=== PATIENT | female | born 1940 | race Caucasian/White ===

== ENCOUNTER 2016-09-29 20:04 | Emergency (ER) | payer MEDICARE ==
[2016-09-29 21:41] LABS: Hematocrit 38 % (35-47); Hemoglobin 12.3 g/dl (12.0-16.0); Mean Corpuscular HGB Conc 33 g/dl (31-36); Mean Corpuscular Hemoglobin 27 pg (27-31); Mean Corpuscular Volume 83 fL (80-97); Mean Platelet Volume 9 um3 (7.4-10.4); Red Blood Count 4.51 10^6/ul (4.0-5.4); Red Cell Distribution Width 13 % (10.5-15); White Blood Count 9.7 10^3/ul (3.5-10.8)
[2016-09-29 21:55] LABS: Albumin 3.7 g/dL (3.2-5.2); BUN/Creatinine Ratio 26.3 (8-20); Calcium 9.5 mg/dL (8.6-10.3); EGFR African American 73.8 (>60); EGFR Non-African American 57.3 (>60); Globulin 2.7 g/dL (2-4); Magnesium 1.7 mg/dL (1.9-2.7); Total Bilirubin 1.3 mg/dL (0.2-1.0); Total Protein 6.4 g/dL (6.4-8.9)
--- NOTE | 2016-09-29 22:01 | ED ---
Juan Angulo Benjamin, scribed for José Miguel Newberry MD on 09/29/16 at 2118 . Abdominal Pain/Female - HPI Summary HPI Summary: 76yo female c/o abdominal pain from abdominal distension and acid reflux since . Pt had been having abdominal distension for few weeks now and was dxed with an 30cm abdominal mass that is spreading to the rest of her abdomen from an abdominal CT. She has appointment with Dr. Cameron in [place] but wants to go to [facility] in [place]. Pt also reports temp of 100F and states that she feels ill. Pt also reports difficulty sitting up due to her abdominal distension and pain. - History of Current Complaint Chief Complaint: EDAbdPain Stated Complaint: FEVER 100.1 Time Seen by Provider: 09/29/16 21:07 Hx Obtained From: Patient, Family/Neuropsychology Director - Onset/Duration: Gradual Onset, Lasting Days, Still Present Timing: Days Severity Initially: Moderate Severity Currently: Moderate Pain Intensity: 5 Pain Scale Used: 0-10 Numeric Location: Diffuse Radiates: No Character: Other: - distended Aggravating Factor(s): Nothing Alleviating Factor(s): Nothing Associated Signs and Symptoms: Positive: Fever - 100F, Other: - acid reflux Allergies/Adverse Reactions: Allergies Allergy/AdvReac Type Severity Reaction Status Date / Time Sulfa Antibiotics AdvReac See Comment Verified 11/06/15 11:46 PMH/Surg Hx/FS Hx/Imm Hx Endocrine/Hematology History: Denies: Hx Diabetes Cardiovascular History: Denies: Hx Hypertension GI History: Reports: Other GI Disorders - abdominal mass History: Denies: Hx Renal Disease - Surgical History Surgery Procedure, Year, and Place: appy as "a teenager" Infectious Disease History: No Infectious Disease History: Denies: History Other Infectious Disease, Traveled Outside the [place] in Last 30 Days - Family History Known Family History: Negative: Cardiac Disease - denies family hx of, Diabetes - Social History Occupation: Employed Full-time Lives: With Family Alcohol Use: None Hx Substance Use: No Substance Use Type: Reports: None Smoking Status (MU): Never Smoked Tobacco Review of Systems Positive: Fever - 100F Eyes: Negative ENT: Negative Cardiovascular: Negative Positive: Other Respiratory: Negative Positive: Abdominal Pain, Other - acid reflux. Negative: Vomiting, Diarrhea Genitourinary: Negative Musculoskeletal: Negative Skin: Negative Neurological: Negative Psychological: Normal All Other Systems Reviewed And Are Negative: Yes Physical Exam Triage Information Reviewed: Yes Vital Signs On Initial Exam: Initial Vitals Temp Pulse Resp BP Pulse Ox 99.5 F 130 18 134/80 94 09/29/16 20:09 09/29/16 20:09 09/29/16 20:09 09/29/16 20:09 09/29/16 20:09 Vital Signs Reviewed: Yes Appearance: Positive: Ill-Appearing - chronically ill appearing, Pain Distress - mild discomfort Skin: Positive: Warm Head/Face: Positive: Normal Head/Face Inspection Eyes: Positive: JESSICA ENT: Positive: Hearing grossly normal Neck: Positive: Supple Respiratory/Lung Sounds: Positive: Decreased Breath Sounds - left base Cardiovascular: Positive: Tachycardia Abdomen Description: Positive: Soft, Distended - ascites present Bowel Sounds: Positive: Present Musculoskeletal: Positive: Strength/ROM Intact Neurological: Positive: Alert, Oriented to Person Place, Time, Normal Gait Psychiatric: Positive: Anxious - Courtney Coma Scale Coma Scale Total: 15 Diagnostics - Vital Signs Vital Signs Temp Pulse Resp BP Pulse Ox 09/29/16 20:44 99.8 F 126 18 140/76 95 09/29/16 20:09 99.5 F 130 18 134/80 94 - Laboratory Lab Results: Lab Results 09/29/16 09/29/16 09/29/16 Range/Units 21:33 21:33 21:33 WBC 9.7 (3.5-10.8) 10^3/ul RBC 4.51 (4.0-5.4) 10^6/ul Hgb 12.3 (12.0-16.0) g/dl Hct 38 (35-47) % MCV 83 (80-97) fL MCH 27 (27-31) pg MCHC 33 (31-36) g/dl RDW 13 (10.5-15) % Plt Count 182 (150-450) 10^3/ul MPV 9 (7.4-10.4) um3 Neut % (Auto) 81.7 (38-83) % Lymph % (Auto) 4.3 L (25-47) % [place] % (Auto) 13.5 H (1-9) % Eos % (Auto) 0.2 (0-6) % Baso % (Auto) 0.3 (0-2) % Absolute Neuts (auto) 7.9 H (1.5-7.7) 10^3/ul Absolute Lymphs (auto) 0.4 L (1.0-4.8) 10^3/ul Absolute Monos (auto) 1.3 H (0-0.8) 10^3/ul Absolute Eos (auto) 0 (0-0.6) 10^3/ul Absolute Basos (auto) 0 (0-0.2) 10^3/ul Absolute Nucleated RBC 0 10^3/ul Nucleated RBC % 0 INR (Anticoag Therapy) (0.89-1.11) D-Dimer, Quantitative (Less Than 230) ng/mL Sodium 133 (133-145) mmol/L Potassium 4.0 (3.5-5.0) mmol/L Chloride 101 (101-111) mmol/L Carbon Dioxide 21 L (22-32) mmol/L Anion Gap 11 (2-11) mmol/L BUN 25 H (6-24) mg/dL Creatinine 0.95 (0.51-0.95) mg/dL Est GFR ( Amer) 73.8 (>60) Est GFR (Non-Af Amer) 57.3 (>60) BUN/Creatinine Ratio 26.3 H (8-20) Glucose 106 H (70-100) mg/dL Lactic Acid 0.7 (0.5-2.0) mmol/L Calcium 9.5 (8.6-10.3) mg/dL Magnesium 1.7 L (1.9-2.7) mg/dL Total Bilirubin 1.30 H (0.2-1.0) mg/dL AST 22 (13-39) U/L ALT 9 (7-52) U/L Alkaline Phosphatase 61 (34-104) U/L Total Protein 6.4 (6.4-8.9) g/dL Albumin 3.7 (3.2-5.2) g/dL Globulin 2.7 (2-4) g/dL Albumin/Globulin Ratio 1.4 (1-3) // Range/Units 21:33 WBC (3.5-10.8) 10^3/ul RBC (4.0-5.4) 10^6/ul Hgb (12.0-16.0) g/dl Hct (35-47) % MCV (80-97) fL MCH (27-31) pg MCHC (31-36) g/dl RDW (10.5-15) % Plt Count (150-450) 10^3/ul MPV (7.4-10.4) um3 Neut % (Auto) (38-83) % Lymph % (Auto) (25-47) % [place] % (Auto) (1-9) % Eos % (Auto) (0-6) % Baso % (Auto) (0-2) % Absolute Neuts (auto) (1.5-7.7) 10^3/ul Absolute Lymphs (auto) (1.0-4.8) 10^3/ul Absolute Monos (auto) (0-0.8) 10^3/ul Absolute Eos (auto) (0-0.6) 10^3/ul Absolute Basos (auto) (0-0.2) 10^3/ul Absolute Nucleated RBC 10^3/ul Nucleated RBC % INR (Anticoag Therapy) 1.02 (0.89-1.11) D-Dimer, Quantitative 757 H (Less Than 230) ng/mL Sodium (133-145) mmol/L Potassium (3.5-5.0) mmol/L Chloride (101-111) mmol/L Carbon Dioxide (22-32) mmol/L Anion Gap (2-11) mmol/L BUN (6-24) mg/dL Creatinine (0.51-0.95) mg/dL Est GFR ( Amer) (>60) Est GFR (Non-Af Amer) (>60) BUN/Creatinine Ratio (8-20) Glucose (70-100) mg/dL Lactic Acid (0.5-2.0) mmol/L Calcium (8.6-10.3) mg/dL Magnesium (1.9-2.7) mg/dL Total Bilirubin (0.2-1.0) mg/dL AST (13-39) U/L ALT (7-52) U/L Alkaline Phosphatase (34-104) U/L Total Protein (6.4-8.9) g/dL Albumin (3.2-5.2) g/dL Globulin (2-4) g/dL Albumin/Globulin Ratio (1-3) Result Diagrams: 09/29/16 21:33 09/29/16 21:33 Lab Statement: Any lab studies that have been ordered have been reviewed, and results considered in the medical decision making process. - Radiology CXR Xray Interpretation: Positive (See Comments) - IMPRESSION: SMALL LEFT PLEURAL EFFUSION. Radiology Interpretation Completed By: Radiologist - CT CTA chest CT Interpretation: Positive (See Comments) - nonspecific ascites and left pleural fluid collection. No pulmonary embolism. - EKG 2236. Cardiac Rate: Tachycardia - 115bpm EKG Rhythm: Sinus Tachycardia ST Segment: Normal Ectopy: None Re-Evaluation - Re-Evaluation First Eval Comment: results d/w pt. pt offered admission, case d/w hospitalist Second Eval Comment: pt now requesting transfer to [facility]. Pt has never been there before , explained to pt that we can treat pt here and then consider making transfer arrangements as we cannot transfer from ed as there is no medical justification as we can provide sewrvices here. Pt now states wants to be d/c to go home. Pt d/c advised to f/u with pcp, return to ed for any concerns Abdominal Pain Fem Course/Dx - Diagnoses Provider Diagnoses: Pleural effusion, Ascites Discharge - Discharge Plan Condition: Stable Disposition: HOME Patient Education Materials: Pleural Effusion (ED), Ascites (ED) Referrals: Jud Holland MD [Primary Care Provider] - The documentation as recorded by the Juan ely Benjamin accurately reflects the service I personally performed and the decisions made by me, José Miguel Newberry MD.
--- NOTE | 2016-09-29 22:04 | RAD ---
INDICATION: Shortness of breath. COMPARISON: Comparison is made with a prior CT of the abdomen and pelvis from September 27, 2016. TECHNIQUE: Dual-energy PA and lateral views of the chest were obtained. FINDINGS: The heart is within normal limits in size. Mediastinal and hilar contours appear within normal limits. There is a small left pleural effusion which is similar to that seen on the prior CT study. The lungs are otherwise clear. IMPRESSION: SMALL LEFT PLEURAL EFFUSION.
[2016-09-29] MEDS ORDERED: Iodixanol* (CONTRAST) 320 MG/ML 100 ML SDV IV ONE (22:18)
[2016-09-29 23:23] VITALS: BP 142/86
--- NOTE | 2016-09-30 07:02 | RAD ---
INDICATION: Shortness of breath, elevated d-dimer. COMPARISON: Comparison is made with a prior CT of the abdomen and pelvis from September 27, 2016. TECHNIQUE: A CT angiogram of the chest was performed with intravenous following intravenous injection of 74 ml of Visipaque 320 nonionic contrast. Contiguous axial sections were obtained from the lung apices through the lung bases. Images were reconstructed in the coronal and sagittal planes. FINDINGS: There is relatively homogeneous opacification of the pulmonary arteries. No intraluminal filling defect or pulmonary embolism is seen. The heart is within normal limits in size. There is a small pericardial effusion present. The thoracic aorta is normal in caliber and demonstrates homogeneous contrast opacification. There are multiple enlarged mediastinal lymph nodes in the pretracheal subcarinal and aorticopulmonary window regions. These measure up to 2.2 cm in transverse dimension. There are also enlarged supraclavicular lymph nodes present on the left side measuring up to 2.0 cm in transverse dimension. There is a hypodense thyroid nodule measuring 1.6 x 1.2 cm in size. There is a small a moderate size left pleural effusion and a left lower lobe infiltrate most consistent with atelectasis. The lungs are otherwise clear. There is a small hiatal hernia. There is thickening of the wall of the distal esophagus. Images of the abdomen demonstrate a large amount of ascites. Again note is made of a retroperitoneal mass on the left side encasing the left kidney as described on the prior CT abdomen study. No significant focal osseous abnormality is seen. IMPRESSION: 1. NO EVIDENCE FOR PULMONARY EMBOLISM. 2. SMALL PERICARDIAL EFFUSION. 3. SMALL TO MODERATE SIZE LEFT PLEURAL EFFUSION AND LEFT LOWER LOBE ATELECTASIS. 4. ENLARGED MEDIASTINAL AND SUPRAHILAR CLAVICULAR LYMPH NODES. 5. LARGE RETROPERITONEAL MASS SURROUNDING THE LEFT KIDNEY PREVIOUSLY NOTED. 6. ASCITES 7. SMALL HIATAL HERNIA AND THICKENING OF THE WALL OF THE DISTAL ESOPHAGUS. 8. SMALL THYROID NODULE.
== END 2016-09-30 00:47 | disposition home or self-care (01) ==
LOC: ED 20:04
DX: J90 Pleural effusion, not elsewhere classified (principal); R10.9 Unspecified abdominal pain; R50.9 Fever, unspecified; R18.8 Other ascites
CPT/HCPCS: 36415; 71020; 71275; 80053; 83605; 83735; 83880; 85025; 85379; 85610; 93005; 99283; Q9967

== ENCOUNTER 2016-10-17 10:31 | Emergency (ER) | payer MEDICARE ==
[2016-10-17 10:39] VITALS: BP 138/76
--- NOTE | 2016-10-17 10:46 | UC ---
General HPI - HPI Summary HPI Summary: SUDDEN ONSET OF VISUAL DISTURBANCE WHILE LOOKING AT THE COMPUTER SCREEN THIS MORNING. LETTERS SEEMS TO BE "DISSOLVING INTO WATER". ALSO FEELS OVERALL WEAK. NO NAUSEA. NO CONFUSION OR FACIAL DROOPING. IS CURRENTLY BEING WORKED UP FOR A LARGE LEFT SIDED RETROPERITONEAL MASS. - History of Current Complaint Chief Complaint: UCGeneralIllness Stated Complaint: STROKE SYMPTOMS Time Seen by Provider: 10/17/16 10:40 Hx Obtained From: Patient, Family/Editorial Manager - SON Onset/Duration: Sudden Onset, Lasting Minutes, Still Present Timing: Constant Onset Severity: Moderate Current Severity: Moderate Pain Intensity: 0 Associated Signs & Symptoms: Negative: Fever - Allergy/Home Medications Allergies/Adverse Reactions: Allergies Allergy/AdvReac Type Severity Reaction Status Date / Time Sulfa Antibiotics AdvReac See Comment Verified 11/06/15 11:46 PMH/Surg Hx/FS Hx/Imm Hx Other Cancer History: LARGE LEFT RETROPERITONEAL MASS - Surgical History Surgical History: Yes Surgery Procedure, Year, and Place: appy as "a teenager" partial mass removal/ drained? at [place] - Family History Known Family History: Negative: Cardiac Disease - denies family hx of, Diabetes - Social History Alcohol Use: None Substance Use Type: None Smoking Status (MU): Never Smoked Tobacco Review of Systems Constitutional: Negative Skin: Negative Respiratory: Negative Cardiovascular: Negative Gastrointestinal: Abdominal Pain All Other Systems Reviewed And Are Negative: Yes Physical Exam Triage Information Reviewed: Yes Appearance: Well-Appearing, No Pain Distress, Well-Nourished Vital Signs: Initial Vital Signs Temp 98.9 F 10/17/16 10:34 Pulse 102 10/17/16 10:34 Resp 18 10/17/16 10:34 BP 138/76 10/17/16 10:34 Pulse Ox 96 10/17/16 10:34 Vital Signs Reviewed: Yes Eyes: Positive: Conjunctiva Clear ENT: Positive: Hearing grossly normal Neck: Positive: Supple Respiratory: Positive: No respiratory distress, No accessory muscle use Cardiovascular: Positive: Tachycardia Abdomen Description: Positive: Soft, Distended Musculoskeletal: Positive: No Edema Neurological: Positive: Alert, Other: - CN II-XII GROSSLY INTACT BILATERALLY. NEG PRONATOR DRIFT. FINGER TO NOSE INTACT BILATERALLY. HEEL TO VILLA INTACT BILATERALLY. RAPID ALTERNATING MVMTS INTACT. 5/5 STRENGTH Psychological: Positive: Age Appropriate Behavior Skin: Negative: rashes Course/Dx - Differential Dx - Multi-Symptom Provider Diagnoses: SUDDEN ONSET GENERALIZED WEAKNESS - Physician Notifications Discussed Patient Care With: Jenna Brown - TO [facility] Time Discussed With Above Provider: 10:48 Instructed by Provider To: MD Will See In ED Discharge - Discharge Plan Condition: Stable Disposition: TRANS HIGHER LVL OF CARE FAC Referrals: Jud Holland MD [Primary Care Provider] -
== END 2016-10-17 10:55 | disposition short-term general hospital (02) ==
LOC: UCEAST 10:31
DX: R53.1 Weakness (principal); H53.9 Unspecified visual disturbance; Z88.2 Allergy status to sulfonamides
CPT/HCPCS: 99213; G0463

== ENCOUNTER 2016-10-17 11:09 | Inpatient (IN) | payer MEDICARE ==
[2016-10-17] MEDS: NS 0.9% 1000 ML* 1,000 ML IV SCH ×2 (12:37→22:33)
[2016-10-17 12:44] LABS: Hematocrit 37 % (35-47); Mean Corpuscular HGB Conc 32 g/dl (31-36); Mean Corpuscular Hemoglobin 26 pg (27-31); Mean Corpuscular Volume 81 fL (80-97); Mean Platelet Volume 7 um3 (7.4-10.4); Red Blood Count 4.55 10^6/ul (4.0-5.4); Red Cell Distribution Width 14 % (10.5-15); White Blood Count 6.7 10^3/ul (3.5-10.8)
[2016-10-17 13:03] LABS: Albumin 3.1 g/dL (3.2-5.2); BUN/Creatinine Ratio 20.6 (8-20); C Reactive Protein 20.35 mg/L (< 5.00); Calcium 9.1 mg/dL (8.6-10.3); EGFR African American 67.9 (>60); EGFR Non-African American 52.8 (>60); Globulin 2.8 g/dL (2-4); Magnesium 1.9 mg/dL (1.9-2.7); Total Bilirubin 0.5 mg/dL (0.2-1.0); Total Protein 5.9 g/dL (6.4-8.9)
[2016-10-17 13:04] LABS: Troponin I 0.01 ng/mL (<0.04)
[2016-10-17] MEDS ORDERED: Iodixanol* (CONTRAST) 320 MG/ML 100 ML SDV IV ONE (13:19)
--- NOTE | 2016-10-17 13:20 | RAD ---
INDICATION: Dizziness. Short of breath. COMPARISON: September 29, 2016 TECHNIQUE: An AP portable view obtained at 1222 hours is submitted. FINDINGS: Bones/Soft Tissues: There are no acute bony findings. Cardiomediastinal: The cardiomediastinal silhouette is normal. Lungs: With left basilar airspace disease, unchanged. The right lung is clear.. Pleura: There is a small moderate-sized left-sided pleural effusion, unchanged. Other: None IMPRESSION: LEFT BASILAR INFILTRATE AND LEFT-SIDED EFFUSION WITHOUT RADIOGRAPHIC CHANGE
[2016-10-17 13:24] LABS: TSH (Thyroid Stimulating Horm) 1.88 mcIU/mL (0.34-5.60)
--- NOTE | 2016-10-17 14:12 | RAD ---
Indication: Vision changes. Dizziness. Sudden onset of symptoms. Comparison: No relevant prior exams available on the [facility] PACS for comparison. Technique: Noncontrast CT vertex of skull through foramen magnum. Report: Mild prominence of the cerebral sulci and cerebellar fissures reflecting atrophy. Unremarkable ventricles and basal cisterns. Negative for mejia matter white matter obscuration, intra or extra-axial hemorrhage, or mass effect. Unremarkable orbital contents. Indolent thickening of the inner table of the frontal bone. No suspicious calvarial or skull base lesions. Mild retained secretions at the LEFT sphenoid sinus. Negative for paranasal sinus fluid levels. Clear mastoid air spaces. Unremarkable scalp. IMPRESSION: 1. No evidence for intracranial hemorrhage or acute intracranial process. 2. Mild involutional change.
--- NOTE | 2016-10-17 14:25 | RAD ---
INDICATION: Sudden onset visual changes and dizziness. COMPARISON: Noncontrast head CT of the same date. September 29, [address] TECHNIQUE: Multidetector CT images were obtained from the aortic arch to the vertex of the head with 80 mL Visipaque 320 IV contrast. Arterial phase of enhancement. Multiplanar reformation including maximum intensity projection. 3-D arterial volume rendering. Stenosis estimations based on denominator of distal arterial diameter. NECK ANGIOGRAM REPORT: Prevascular lymphadenopathy measuring up to 1.7 cm short axis without significant change compared with the September 29, 2016 CT. 1.4 cm RIGHT paratracheal lymph node without change. Moderately large dependent RIGHT pleural effusion with proportional atelectasis without gross change. 1.5 cm RIGHT thyroid nodule without change. Variant common origin of the RIGHT brachiocephalic artery and LEFT common carotid artery. Negative for ostial stenosis at the aortic arch branch vessels. Negative for atherosclerotic plaque at the common or internal carotid arteries. Patent codominant vertebral arteries with both contributing to the basilar artery. Negative for arterial dissection. NECK ANGIOGRAM IMPRESSION: 1. Negative for carotid or vertebral artery stenosis or occlusion. 2. Mediastinal lymphadenopathy, LEFT pleural effusion with associated atelectasis, and RIGHT thyroid lobe nodule without change compared with the September 29, [address] HEAD ANGIOGRAM REPORT: Minimal calcific plaque at the RIGHT carotid siphon. No hemodynamic significant stenosis, occlusion, or conspicuous dissection of the intracranial internal carotid arteries or first or second segments of the middle cerebral arteries. Patent bilateral A1 segments of the anterior cerebral arteries. Patent anterior communicating artery. Patent unremarkable LEFT A2 segment. Diminutive RIGHT A2 segment likely representing a normal variant. Unremarkable patent basilar artery and cerebellar artery origins. Patent posterior cerebral arteries are supplied primarily by the posterior circulation with normal variant hypoplastic posterior communicating arteries. No intracranial aneurysm or vascular malformation evident. Multilevel cervical spine degenerative spondylosis and facet joint osteoarthritis. No suspicious focal osseous lesions evident within the [id number]. HEAD ANGIOGRAM IMPRESSION: Negative for central intracranial large vessel arterial stenosis or occlusion. CPT II: CPT II Codes: 3100F
[2016-10-17 15:23] LABS: Urine Bilirubin Negative (Negative); Urine Glucose Negative (Negative); Urine Nitrite Negative (Negative)
--- NOTE | 2016-10-17 16:16 | RAD ---
HISTORY: Sudden onset blurred vision, dizziness and weakness COMPARISONS: CT of the brain dated October 17, 2016 TECHNIQUE: The following sequences were obtained of the head: Sagittal T1-weighted images, axial T2-weighted images, axial FLAIR images, axial susceptibility weighted images, axial T1-weighted images. Additionally, axial diffusion-weighted images were obtained with calculated apparent diffusion coefficients.. FINDINGS: HEMORRHAGE/INFARCT: There is no hemorrhage or acute infarct. MASSES/SHIFT: There is no mass or shift. EXTRA-AXIAL SPACES/MENINGES: There are no extra-axial fluid collections. SULCI AND VENTRICLES: The sulci and ventricles are normal in size and position for the patient's stated age. CEREBRUM: There are no focal parenchymal abnormalities. BRAINSTEM: There are no focal parenchymal abnormalities. CEREBELLUM: There are no focal parenchymal abnormalities. The cerebellar tonsils are normal in size and position. SELLA: The sella is normal. PINEAL: The pineal region is clear. CP ANGLE/TEMPORAL BONES: The labyrinthine structures are grossly normal. VESSELS: Normal flow-voids are noted within the visualized vertebral vasculature. DIFFUSION ABNORMALITIES: There are no diffusion abnormalities. PARANASAL SINUSES/MASTOIDS: The paranasal sinuses are clear. ORBITS: The orbits are unremarkable. BONES AND SOFT TISSUE: No bone or soft tissue abnormalities are noted. IMPRESSION: NORMAL MRI OF THE BRAIN.
--- NOTE | 2016-10-17 16:52 | ED ---
Byron Angulo Angela, scribed for Dorian Amaya MD on 10/17/16 at 1203 . Neurological HPI - HPI Summary HPI Summary: 76 y.o female STEFANI from [facility] with PMHx of CA presents to the ED with sudden onset of decreased vision today at 10:15 AM. Pt reports she was working on her computer when the words became difficult to read which she describes as "words coming in and out" and "funny vision." Pt denies any blind spots or difficulty in speech, but endorses weakness and dizziness, characterized as room spinning. She notes that this weakness and dizziness has been different from other previous ones; sitting up right exacerbates her dizziness. Pt denies rhinorrhea , cough, SOB, CP. She currently feels fine and not dizzy. Pt is not on any medications. She reports seeing an oncologist currently at [place] where she had a tissue biopsy that resulted malignant with a possibility of being lymphoma. Pt notes that she had a high D-dimer when she was here in the ED on 09/29/16 that was a concern for PE, she was diagnosed with pleural effusion and ascites. - History of Current Complaint Chief Complaint: EDNeurologicalDeficit Stated Complaint: POSS STROKE Time Seen by Provider: 10/17/16 11:27 Hx Obtained From: Patient Onset/Duration: Sudden Onset Timing: Sudden Onset Pain Intensity: 5 Character: Room Spinning, Weak, Dizzy, Visual Changes Associated Signs and Symptoms: Positive: Visual Changes, Weakness, Dizziness. Negative: Loss of Consciousness, Chest Pain, Shortness of Breath - Allergy/Home Medications Allergies/Adverse Reactions: Allergies Allergy/AdvReac Type Severity Reaction Status Date / Time Sulfa Antibiotics AdvReac See Comment Verified 10/17/16 11:37 Home Medications: Home Medications NK [No Home Medications Reported] 10/17/16 [History Confirmed 10/17/16] PMH/Surg Hx/FS Hx/Imm Hx Endocrine/Hematology History: Denies: Hx Diabetes Cardiovascular History: Denies: Hx Hypertension GI History: Reports: Other GI Disorders - abdominal mass History: Denies: Hx Renal Disease - Cancer History Cancer Type, Location and Year: 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 - Surgical History Surgery Procedure, Year, and Place: appy as "a teenager" Infectious Disease History: No Infectious Disease History: Denies: Hx Clostridium Difficile, Hx Hepatitis, Hx Human Immunodeficiency Virus (HIV), Hx of Known/Suspected MRSA, Hx Shingles, Hx Tuberculosis, Hx Known/ Suspected VRE, Hx Known/Suspected VRSA, History Other Infectious Disease, Traveled Outside the [place] in Last 30 Days - Family History Known Family History: Negative: Cardiac Disease - denies family hx of, Diabetes - Social History Alcohol Use: None Hx Substance Use: No Substance Use Type: Reports: None Smoking Status (MU): Never Smoked Tobacco Review of Systems Positive: Other - vision change Negative: Chest Pain Negative: Shortness Of Breath Neurological: Other - Dizziness Positive: Weakness. Negative: Slurred Speech All Other Systems Reviewed And Are Negative: Yes Physical Exam - Summary Physical Exam Summary: General: well-appearing, no pain distress Skin: warm, color reflects adequate perfusion, dry Head: normal Eyes: EOMI, JESSICA ENT: normal Neck: supple, nontender Respiratory: CTA, breath sounds present Cardiovascular: RRR Abdomen: soft, nontender, distended Bowel: present Musculoskeletal: normal, strength/ROM intact Neurological: normal, sensory/motor intact, A&O x3 Psychological: affect/mood appropriate GCS: 15 Triage Information Reviewed: Yes Vital Signs On Initial Exam: Initial Vitals Temp Pulse Resp BP Pulse Ox 98.5 F 100 18 115/80 94 10/17/16 11:25 10/17/16 11:25 10/17/16 11:25 10/17/16 11:25 10/17/16 11:25 Vital Signs Reviewed: Yes - Courtney Coma Scale Coma Scale Total: 15 Diagnostics - Vital Signs Vital Signs Temp Pulse Resp BP Pulse Ox 10/17/16 11:25 98.5 F 100 18 115/80 94 - Laboratory Lab Results: Lab Results 10/17/16 10/17/16 10/17/16 Range/Units 12:30 12:30 12:30 WBC 6.7 (3.5-10.8) 10^3/ul RBC 4.55 (4.0-5.4) 10^6/ul Hgb 12.0 (12.0-16.0) g/dl Hct 37 (35-47) % MCV 81 (80-97) fL MCH 26 L (27-31) pg MCHC 32 (31-36) g/dl RDW 14 (10.5-15) % Plt Count 291 (150-450) 10^3/ul MPV 7 L (7.4-10.4) um3 Neut % (Auto) 84.1 H (38-83) % Lymph % (Auto) 5.0 L (25-47) % Greenlee % (Auto) 10.0 H (1-9) % Eos % (Auto) 0.5 (0-6) % Baso % (Auto) 0.4 (0-2) % Absolute Neuts (auto) 5.6 (1.5-7.7) 10^3/ul Absolute Lymphs (auto) 0.3 L (1.0-4.8) 10^3/ul Absolute Monos (auto) 0.7 (0-0.8) 10^3/ul Absolute Eos (auto) 0 (0-0.6) 10^3/ul Absolute Basos (auto) 0 (0-0.2) 10^3/ul Absolute Nucleated RBC 0 10^3/ul Nucleated RBC % 0.1 INR (Anticoag Therapy) 0.95 (0.89-1.11) APTT 31.7 (26.0-36.3) seconds Sodium 137 (133-145) mmol/L Potassium 4.0 (3.5-5.0) mmol/L Chloride 103 (101-111) mmol/L Carbon Dioxide 26 (22-32) mmol/L Anion Gap 8 (2-11) mmol/L BUN 21 (6-24) mg/dL Creatinine 1.02 H (0.51-0.95) mg/dL Est GFR ( Amer) 67.9 (>60) Est GFR (Non-Af Amer) 52.8 (>60) BUN/Creatinine Ratio 20.6 H (8-20) Glucose 89 (70-100) mg/dL Lactic Acid (0.5-2.0) mmol/L Calcium 9.1 (8.6-10.3) mg/dL Magnesium 1.9 (1.9-2.7) mg/dL Total Bilirubin 0.50 (0.2-1.0) mg/dL AST 22 (13-39) U/L ALT 14 (7-52) U/L Alkaline Phosphatase 62 (34-104) U/L Troponin I 0.01 (<0.04) ng/mL C-Reactive Protein 20.35 H (< 5.00) mg/L Total Protein 5.9 L (6.4-8.9) g/dL Albumin 3.1 L (3.2-5.2) g/dL Globulin 2.8 (2-4) g/dL Albumin/Globulin Ratio 1.1 (1-3) Lipase 13 (11.0-82.0) U/L TSH 1.88 (0.34-5.60) mcIU/mL Urine Color Urine Appearance Urine pH (5-9) Ur Specific Sargeant (1.010-1.030) Urine Protein (Negative) Urine Ketones (Negative) Urine Blood (Negative) Urine Nitrate (Negative) Urine Bilirubin (Negative) Urine Urobilinogen (Negative) Ur Leukocyte Esterase (Negative) Urine Glucose (Negative) 10/17/16 10/17/16 Range/Units 12:30 15:10 WBC (3.5-10.8) 10^3/ul RBC (4.0-5.4) 10^6/ul Hgb (12.0-16.0) g/dl Hct (35-47) % MCV (80-97) fL MCH (27-31) pg MCHC (31-36) g/dl RDW (10.5-15) % Plt Count (150-450) 10^3/ul MPV (7.4-10.4) um3 Neut % (Auto) (38-83) % Lymph % (Auto) (25-47) % Greenlee % (Auto) (1-9) % Eos % (Auto) (0-6) % Baso % (Auto) (0-2) % Absolute Neuts (auto) (1.5-7.7) 10^3/ul Absolute Lymphs (auto) (1.0-4.8) 10^3/ul Absolute Monos (auto) (0-0.8) 10^3/ul Absolute Eos (auto) (0-0.6) 10^3/ul Absolute Basos (auto) (0-0.2) 10^3/ul Absolute Nucleated RBC 10^3/ul Nucleated RBC % INR (Anticoag Therapy) (0.89-1.11) APTT (26.0-36.3) seconds Sodium (133-145) mmol/L Potassium (3.5-5.0) mmol/L Chloride (101-111) mmol/L Carbon Dioxide (22-32) mmol/L Anion Gap (2-11) mmol/L BUN (6-24) mg/dL Creatinine (0.51-0.95) mg/dL Est GFR ( Amer) (>60) Est GFR (Non-Af Amer) (>60) BUN/Creatinine Ratio (8-20) Glucose (70-100) mg/dL Lactic Acid 0.8 (0.5-2.0) mmol/L Calcium (8.6-10.3) mg/dL Magnesium (1.9-2.7) mg/dL Total Bilirubin (0.2-1.0) mg/dL AST (13-39) U/L ALT (7-52) U/L Alkaline Phosphatase (34-104) U/L Troponin I (<0.04) ng/mL C-Reactive Protein (< 5.00) mg/L Total Protein (6.4-8.9) g/dL Albumin (3.2-5.2) g/dL Globulin (2-4) g/dL Albumin/Globulin Ratio (1-3) Lipase (11.0-82.0) U/L TSH (0.34-5.60) mcIU/mL Urine Color Yellow Urine Appearance Clear Urine pH 5.0 (5-9) Ur Specific Sargeant 1.048 H (1.010-1.030) Urine Protein Negative (Negative) Urine Ketones Trace H (Negative) Urine Blood Negative (Negative) Urine Nitrate Negative (Negative) Urine Bilirubin Negative (Negative) Urine Urobilinogen Negative (Negative) Ur Leukocyte Esterase Negative (Negative) Urine Glucose Negative (Negative) Result Diagrams: 10/17/16 12:30 10/17/16 12:30 Lab Statement: Any lab studies that have been ordered have been reviewed, and results considered in the medical decision making process. - Radiology Chest XR Xray Interpretation: No Acute Changes - IMPRESSION: LEFT BASILAR INFILTRATE AND LEFT-SIDED EFFUSION WITHOUT RADIOGRAPHIC CHANGE Radiology Interpretation Completed By: Radiologist - CT CT Brain CT Interpretation: No Acute Changes - IMPRESSION: 1. No evidence for intracranial hemorrhage or acute intracranial process. 2. Mild involutional change. CT Interpretation Completed By: Radiologist CTA Head/Neck CT Interpretation: No Acute Changes - NECK ANGIOGRAM IMPRESSION: 1. Negative for carotid or vertebral artery stenosis or occlusion. 2. Mediastinal lymphadenopathy, LEFT pleural effusion with associated atelectasis, and RIGHT thyroid lobe nodule without change compared with the September 29, [address] HEAD ANGIOGRAM IMPRESSION: Negative for central intracranial large vessel arterial stenosis or occlusion. CT Interpretation Completed By: Radiologist - EKG 1232 Cardiac Rate: NL - 93 bpm EKG Rhythm: Sinus Rhythm Ectopy: None EKG Interpretation: Borderline T abnormalities in the anterior leads. - Additional Comments Diagnostic Additional Comments: IMPRESSION: NORMAL MRI OF THE BRAIN NIH Scale - NIH Scale Level of Consciousness: Alert/Keenly Responsive Ask Patient the Month and His/Her Age: Both Correct Ask Pt to Open/Close Eyes and Front Attendant/Release Non-Paretic Hand: Both Correctly Best Gaze (Only Horizontal Eye Movement): Normal Visual Field Testing: No Visual Loss Facial Paresis-Pt to Smile & Close Eyes or Grimace Symmetry: Normal/Symmetrical Motor Function - Right Arm: No Drift-Holds 10 Seconds Motor Function - Left Arm: No Drift-Holds 10 Seconds Motor Function - Right Leg: No Drift-Holds 10 Seconds Motor Function - Left Leg: No Drift-Holds 10 Seconds Limb Ataxia-Must be out of Proportion to Weakness Present: Absent Sensory (Use Pinprick to Test Arms/Legs/Trunk/Face): Normal Best Language (Describe Picture, Name Items): No Aphasia Dysarthria (Read Several Words): Normal Extinction and Inattention: No Abnormality Total Score: 0 Re-Evaluation - Re-Evaluation First Eval Re-Evaluation Time: 16:15 Comment: Discussed performing a lumbar puncture with pt. Pt declined. Course/Dx - Course Course Of Treatment: DR MARCANO SAW PATIENT IN ED. ADMIT HOSPITALIST STABLE. - Diagnoses Provider Diagnoses: Dizziness, Vision disturbance - Physician Notifications Discussed Care Of Patient With: José Miguel Marcano Time Discussed With Above Provider: 12:19 Instructed by Provider To: Other - He recommended a CTA in addition to the CT. 1539: Discussed pt care with Dr. Riky Renee, pt will be admitted. Discussed care of pt with Dr. Marcano again at 1632, updatng him that the pt refused the LP when offered. Discharge - Discharge Plan Condition: Stable Disposition: ADMITTED TO [facility] Referrals: Jud Holland MD [Primary Care Provider] - The documentation as recorded by the Byron ely Angela accurately reflects the service I personally performed and the decisions made by me, Dorian Amaya MD.
[2016-10-17] MEDS ORDERED: Acetaminophen TAB* 325 MG PO PRN (16:58)
[2016-10-17] MEDS ORDERED: Ondansetron INJ* 2 MG/ML VIAL IV PRN (17:00)
[2016-10-17] MEDS: Enoxaparin(*) 40 MG/0.4 ML SYR SUBCUT SCH (18:01)
--- NOTE | 2016-10-17 21:16 | HP ---
ADMISSION HISTORY AND PHYSICAL: DATE OF ADMISSION: 10/17/16 PRIMARY CARE PHYSICIAN: Dr. Holland. ONCOLOGIST: Dr. Mushtaq Maloney, [facility]. HEALTHCARE PROXY: Her daughter, Kira, and her son, Edwin. CODE STATUS: Full. SOURCE OF INFORMATION: History was obtained from review of medical records from [facility], which are good and discussion with the patient, which is poor. CHIEF COMPLAINT: Blurry vision/near syncope. HISTORY OF PRESENT ILLNESS: This is a 76-year-old who was worked up in September for abdominal bloating and new ascites, found with a large retroperitoneal mass on CAT scan. The mass was suspected to be ovarian versus primary peritoneal carcinomatosis based on a CA-125 of 1893. Paracentesis on 10/01/16 of several liters failed to identify primary etiology, so she was scheduled for a biopsy on 10/08/16, with the results indicating follicular center cell lymphoma. She is currently recommended for excisional biopsy to rule out high grade B-cell lymphoma and is also scheduled for a PET/CT. Since the time of her biopsy and diagnosis, she has felt increasingly weak and fatigued. Her daughter indicates that she has been eating and drinking less. The patient admits to eating and drinking less out of fear for developing increased ascites. Her ascites has increased since the time of her last paracentesis over 2 weeks prior. Today, she was in her usual state of health, generally fatigued; however, had two stressful phone calls (both work related). Around 10 a.m. she was looking at a screen and her vision did "funny stuff" and it felt "difficult to focus." She felt weak and tired, and when she tried to get up she felt unsteady. She is unable to tell me whether she was lightheaded, whether her unsteadiness was more disequilibrium or vertiginous, although she does note she has had symptoms of vertigo in the past. She proceeded to [facility] who directed her to [facility] for evaluation. Currently when seen by this author, she denies any lightheadedness or vertiginous symptoms, but does feel weak and afraid of falling. She does also endorse cough for the last several days. PAST MEDICAL HISTORY: Large left retroperitoneal mass thought to be a lymphoma at this time, history of palpitations, prediabetes, left hydronephrosis as a result of retroperitoneal mass encasing the vasculature in ureter and left kidney, hyperlipidemia, COPD, and hypertension. MEDICATIONS: Currently on no medications or over the counters. ALLERGIES: SULFA ANTIBIOTICS. FAMILY HISTORY: She is adopted. SOCIAL HISTORY: No tobacco. Has 4 children. 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 She drinks alcohol socially. REVIEW OF SYSTEMS: Per HPI including cough, feeling of weakness, fatigue, and symptoms from this morning. Otherwise, all other systems negative. PHYSICAL EXAMINATION GENERAL: A thin woman lying 40 degrees in bed, interactive, pleasant, in no apparent distress. VITAL SIGNS: When seen by this author, 119/72, heart rate 104, respiratory rate 12, 94% on room air, T-max 98.5. HEENT: Oropharynx is clear. She has moist mucous membranes. Sclerae are anicteric. She has nonelevated JVD. She has no cervical or supraclavicular lymphadenopathy. LUNGS: Clear to auscultation. HEART: She has tachycardic heart rate. No murmurs, rubs, or gallops. ABDOMEN: Distended, but soft, nontender. Positive fluid wave. EXTREMITIES: Warm, well perfused. No clubbing, cyanosis, or edema. Less than 2 seconds cap refill. She has temporal waisting. NEUROLOGIC: She is alert and oriented x3. She has 5/5 strength throughout. She has intact [id number] per discussion with Dr. Marcano, who did walk the patient. She does have positive Romberg and some evidence of peripheral neuropathy. PERTINENT LABORATORY DATA: Reviewed. White blood cell count 6.7, hemoglobin 12, platelets 219,000. BUN 21, creatinine 1.0, glucose 89, lactic acid 0.8. CRP is 20. TSH 1.8. Urine is positive for specific gravity of 1.048 and trace ketones. Data reviewed. Head CTA, impression: Head angiogram negative for central intracranial large vessel arterial stenosis or occlusion. Neck: Negative for carotid or vertebral artery stenosis or occlusion. Mediastinal lymphadenopathy. Left pleural effusion with associated atelectasis and a right thyroid lobe nodule without change compared to 09/29/[address] Chest x-ray, impression: Bibasilar infiltrate and left-sided effusion without radiographic change. EKG: Normal sinus rhythm, normal limit axis and intervals, no ST or T-wave changes. ASSESSMENT AND PLAN: This is a 76-year-old female with recent diagnosis of suspected lymphoma found after evaluation of new abdominal ascites, presenting with lightheadedness, fatigue, and episode of unsteadiness/presyncope after standing. Unsteadiness/presyncope. I suspect there is a component of volume depletion in the setting of increasing abdominal ascites, and fluid, water, and salt restriction. The patient is currently receiving normal saline. We will continue for 2 additional liters. There certainly could be a component of meningeal involvement, although leptomeningitis is likely ruled out in the setting of MRI, although not with contrast. Agree with Dr. Marcano's recommendation for an LP to also rule out lymphocytic meningitis; however, the patient is currently declining the procedure. We will reevaluate tomorrow, try to encourage should she not improve. No other evidence of infection at this point, doubts for cerebrovascular accident. Abdominal mass, suspected to be lymphoma. I have already contacted [facility] to try to obtain records; however, at this point nobody is answering the telephones. I have to attempt again tomorrow. Abdominal ascites. No indication to tap at this point. The patient does have a mild cough, some mild atelectasis and the left consolidation was unchanged. In the absence of leukocytosis, fevers, chills, or sweats even in the setting of lymphoma, I favor holding on antibiotics at this point. Any change, and I would treat for community-acquired pneumonia. DVT prophylaxis, Lovenox in the setting of lymphoma. Code status is full. [id number]/[facility] #: [id number] MTDD
--- NOTE | 2016-10-18 04:33 | CONS ---
CONSULTATION REPORT: DATE OF CONSULT/DICTATION: 10/17/16 PATIENT OF: Dr. Renee. HISTORY OF PRESENT ILLNESS: This is a 76-year-old woman, I am asked to elevate for complaints of dizziness and visual changes. She has recently been diagnosed with an abdominal mass with significant associated ascites. She recently had a biopsy at [facility] and [facility] is being contacted to confirm the diagnosis. By patient's history, it is possibly lymphoma. She has had significant ascites and has had large drainage of ascites within the past week. In the past few days, she notes that she is dizzy in the evenings and when asked whether it is lightheadedness or room spinning, she states a little bit of both, but she basically says she feels drunk and staggers. She did not know whether she was having similar feelings today because she just walked very little; but in the ER, when she walked, she had similar feeling of unsteadiness without true room spinning, without lightheadedness and I think that this is what she describes and she also feels weak all over, but there is no specific focal weakness. This morning, when she was reading at the computer, her vision felt blurred in either eye and it appears to be a less of a complaint now, though slightly still present. She states that when she was reading letters and looking less intense also. She had no numbness, no clear headache, no difficulties in speech, and she came in today because of her new visual symptoms. ALLERGIES: She is allergic to SULFA MEDICATIONS. MEDICATIONS: There are no medications that she takes at home. PAST MEDICAL AND SURGICAL HISTORY: She has no significant past medical history other than her most recent history of probable cancer and they are determining the type. She had appendectomy as a teenager, but no other surgeries. FAMILY HISTORY: There is no family history of diabetes, heart disease, stroke. SOCIAL HISTORY: She does not smoke or use any substances. REVIEW OF SYSTEMS: Negative in all 14 spheres other than the HPI. PHYSICAL EXAM: Temperature 98, pulse 103, respirations 16, blood pressure is currently 125/65 as well as 103/73, which is somewhat lower than she has in the past. Cranial nerves II through XII were intact. I could not detect any disconjugate gaze. She had full extraocular movements without nystagmus. There is no facial weakness. Discs were sharp. Motor exam revealed normal tone and strength was 5/5 throughout. She had a mild intention tremor in her head and with reaching for objects, which she thinks is new. There is no clear past pointing. Her walking was unsteady and slightly wide based. She had an unsteady Romberg and after about 10 seconds, she had to open her eyes because she was afraid she was going to fall. This occurred in the setting of not feeling lightheaded. Sensation intact to light touch. Reflexes were 1, trace ankle jerks, downgoing toes. Lungs: There were rales in her bases. Chest: Clear. Cardiovascular: Regular rate and rhythm. Abdomen: Full with decreased bowel sounds, but was soft. DIAGNOSTIC STUDIES/LAB DATA: When she first presented with the history of dizziness and visual changes, concern was that she could have a posterior circulation ischemic event. CT scan was negative for acute changes and she had a CTA that showed no significant stenosis. Of note, mediastinal lymphadenopathy is present and pleural effusion. MRI scan was checked to rule out posterior fossa stroke versus tumor. We could not do an MRI with contrast at that point because of the CTA dye, the MRI scan _ to my eye showed some mild white matter disease, but not excessive for age. Laboratories included white count 6.7, hematocrit of 37, platelet count of 291. INR and PTT normal. CMP was abnormal for creatinine of 1.02. C-reactive protein 20, total protein of 5.5, albumin of 3.1. TSH 1.88. She had normal liver functions. Her urine specific gravity was 1.048, trace ketones. IMPRESSION: Mercy has new onset of changes in her gait which is wide based with an unsteady Romberg. I think the dizziness that she is trying to describe is most likely an off balance feeling given the appearance of her walking, this in the setting of a probable malignancy, could be things such as inflammatory process involving her posterior fossa or brainstem such as a carcinomatous or lymphocytic meningitis. I had discussed the reasons why I wanted a spinal tap, and she initially agreed. When she came back from the MRI scan, she refused Dr. Amaya's spinal tap. Other possibilities could be a Guillain-Frankfort picture. If she is still having continued symptoms, tomorrow we will do nerve conduction studies. Guillain-Frankfort would typically not explain the visual disturbance, but it is possible at least some cranial nerve involvement with some variant of Mccormack- Son. This is possible, but unlikely she is being placed on a monitored bed. Other things that would be possibly related to _ would be myasthenic syndrome, this could explain her feeling of general weakness, but not really the imbalance. Visual symptoms could relate to this, but I think that this is less likely we can screen for this on the EMG nerve conduction study. It is finally possible that she has decreased intravascular volume with her fluid getting extravascular in the form of ascites. Some of her feeling of lightheadedness could be related to this, but I do not think it would cause her gait disturbance or possibly visual symptoms as being described. Thank you for sharing her case. [id number]/[facility] #: [id number] ANAHI
[2016-10-18] MEDS: Nystatin TOP POWDER* 15 GM BTL TOPICAL SCH ×2 (11:30→22:05)
--- NOTE | 2016-10-18 17:54 | PN ---
Subjective Date of Service: 10/18/16 Interval History: No additional LH or visual symptoms No pain Feels some tenderness under right hemidiaphragm Objective Active Medications: Acetaminophen (Tylenol Tab*) 650 mg PO Q4H PRN PRN Reason: FEVER/PAIN Enoxaparin Sodium (Lovenox(*)) 40 mg SUBCUT Q24H [facility] Last Admin: 10/17/16 18:01 Dose: 40 mg Sodium Chloride (Ns 0.9% 1000 Ml*) 1,000 mls @ 150 mls/hr IV PER RATE [facility] Stop: 10/18/16 18:54 Last Admin: 10/17/16 22:33 Dose: 150 mls/hr Nystatin (Nystatin Top Powder*) 1 applic TOPICAL BID [facility] Last Admin: 10/18/16 11:30 Dose: 1 applic Ondansetron HCl (Zofran Inj*) 4 mg IV Q4H PRN PRN Reason: NAUSEA Vital Signs 10/17/16 10/17/16 10/17/16 18:12 20:00 23:13 Temperature 98.0 F 98.4 F Pulse Rate 103 92 Respiratory 16 18 17 Rate Blood Pressure 125/65 121/62 (mmHg) O2 Sat by Pulse 96 95 Oximetry 10/17/16 10/18/16 10/18/16 23:42 03:48 07:53 Temperature 98.2 F 97.9 F 97.6 F Pulse Rate 88 87 86 Respiratory 16 16 16 Rate Blood Pressure 121/62 129/72 126/63 (mmHg) O2 Sat by Pulse 95 96 96 Oximetry 10/18/16 10/18/16 08:00 11:39 Temperature 97.9 F Pulse Rate 93 Respiratory 16 16 Rate Blood Pressure 126/61 (mmHg) O2 Sat by Pulse 96 Oximetry Oxygen Devices in Use Now: None Appearance: older than stated age, thin, nad Eyes: No Scleral Icterus, PERRLA Ears/Nose/Mouth/Throat: Clear Oropharnyx, Mucous Membranes Moist Neck: NL Appearance and Movements; NL JVP, Trachea Midline Respiratory: Symmetrical Chest Expansion and Respiratory Effort, Clear to Auscultation Cardiovascular: RRR Abdominal: - - large volume ascites Neurological: Alert and Oriented x 3 Result Diagrams: 10/17/16 12:30 10/17/16 12:30 Additional Lab and Data: Lab Results 10/17/16 10/17/16 10/17/16 Range/Units 12:30 12:30 12:30 WBC 6.7 (3.5-10.8) 10^3/ul RBC 4.55 (4.0-5.4) 10^6/ul Hgb 12.0 (12.0-16.0) g/dl Hct 37 (35-47) % MCV 81 (80-97) fL MCH 26 L (27-31) pg MCHC 32 (31-36) g/dl RDW 14 (10.5-15) % Plt Count 291 (150-450) 10^3/ul MPV 7 L (7.4-10.4) um3 Neut % (Auto) 84.1 H (38-83) % Lymph % (Auto) 5.0 L (25-47) % [place] % (Auto) 10.0 H (1-9) % Eos % (Auto) 0.5 (0-6) % Baso % (Auto) 0.4 (0-2) % Absolute Neuts (auto) 5.6 (1.5-7.7) 10^3/ul Absolute Lymphs (auto) 0.3 L (1.0-4.8) 10^3/ul Absolute Monos (auto) 0.7 (0-0.8) 10^3/ul Absolute Eos (auto) 0 (0-0.6) 10^3/ul Absolute Basos (auto) 0 (0-0.2) 10^3/ul Absolute Nucleated RBC 0 10^3/ul Nucleated RBC % 0.1 INR (Anticoag Therapy) 0.95 (0.89-1.11) APTT 31.7 (26.0-36.3) seconds Sodium 137 (133-145) mmol/L Potassium 4.0 (3.5-5.0) mmol/L Chloride 103 (101-111) mmol/L Carbon Dioxide 26 (22-32) mmol/L Anion Gap 8 (2-11) mmol/L BUN 21 (6-24) mg/dL Creatinine 1.02 H (0.51-0.95) mg/dL Est GFR ( Amer) 67.9 (>60) Est GFR (Non-Af Amer) 52.8 (>60) BUN/Creatinine Ratio 20.6 H (8-20) Glucose 89 (70-100) mg/dL Lactic Acid (0.5-2.0) mmol/L Calcium 9.1 (8.6-10.3) mg/dL Magnesium 1.9 (1.9-2.7) mg/dL Total Bilirubin 0.50 (0.2-1.0) mg/dL AST 22 (13-39) U/L ALT 14 (7-52) U/L Alkaline Phosphatase 62 (34-104) U/L Troponin I 0.01 (<0.04) ng/mL C-Reactive Protein 20.35 H (< 5.00) mg/L Total Protein 5.9 L (6.4-8.9) g/dL Albumin 3.1 L (3.2-5.2) g/dL Globulin 2.8 (2-4) g/dL Albumin/Globulin Ratio 1.1 (1-3) Lipase 13 (11.0-82.0) U/L TSH 1.88 (0.34-5.60) mcIU/mL Urine Color Urine Appearance Urine pH (5-9) Ur Specific [place] (1.010-1.030) Urine Protein (Negative) Urine Ketones (Negative) Urine Blood (Negative) Urine Nitrate (Negative) Urine Bilirubin (Negative) Urine Urobilinogen (Negative) Ur Leukocyte Esterase (Negative) Urine Glucose (Negative) 10/17/16 10/17/16 Range/Units 12:30 15:10 WBC (3.5-10.8) 10^3/ul RBC (4.0-5.4) 10^6/ul Hgb (12.0-16.0) g/dl Hct (35-47) % MCV (80-97) fL MCH (27-31) pg MCHC (31-36) g/dl RDW (10.5-15) % Plt Count (150-450) 10^3/ul MPV (7.4-10.4) um3 Neut % (Auto) (38-83) % Lymph % (Auto) (25-47) % [place] % (Auto) (1-9) % Eos % (Auto) (0-6) % Baso % (Auto) (0-2) % Absolute Neuts (auto) (1.5-7.7) 10^3/ul Absolute Lymphs (auto) (1.0-4.8) 10^3/ul Absolute Monos (auto) (0-0.8) 10^3/ul Absolute Eos (auto) (0-0.6) 10^3/ul Absolute Basos (auto) (0-0.2) 10^3/ul Absolute Nucleated RBC 10^3/ul Nucleated RBC % INR (Anticoag Therapy) (0.89-1.11) APTT (26.0-36.3) seconds Sodium (133-145) mmol/L Potassium (3.5-5.0) mmol/L Chloride (101-111) mmol/L Carbon Dioxide (22-32) mmol/L Anion Gap (2-11) mmol/L BUN (6-24) mg/dL Creatinine (0.51-0.95) mg/dL Est GFR ( Amer) (>60) Est GFR (Non-Af Amer) (>60) BUN/Creatinine Ratio (8-20) Glucose (70-100) mg/dL Lactic Acid 0.8 (0.5-2.0) mmol/L Calcium (8.6-10.3) mg/dL Magnesium (1.9-2.7) mg/dL Total Bilirubin (0.2-1.0) mg/dL AST (13-39) U/L ALT (7-52) U/L Alkaline Phosphatase (34-104) U/L Troponin I (<0.04) ng/mL C-Reactive Protein (< 5.00) mg/L Total Protein (6.4-8.9) g/dL Albumin (3.2-5.2) g/dL Globulin (2-4) g/dL Albumin/Globulin Ratio (1-3) Lipase (11.0-82.0) U/L TSH (0.34-5.60) mcIU/mL Urine Color Yellow Urine Appearance Clear Urine pH 5.0 (5-9) Ur Specific [place] 1.048 H (1.010-1.030) Urine Protein Negative (Negative) Urine Ketones Trace H (Negative) Urine Blood Negative (Negative) Urine Nitrate Negative (Negative) Urine Bilirubin Negative (Negative) Urine Urobilinogen Negative (Negative) Ur Leukocyte Esterase Negative (Negative) Urine Glucose Negative (Negative) Assess/Plan/Problems-Billing Assessment: 76 yo F recent dx lymphoma p/w visual symptoms found with peripheral neuropathy - Patient Problems (1) Peripheral neuropathy Comment: appreciate neurology c/s EMG today confirms peripheral neuropathy LP today to evaluate for lymphocytic meningitis monitor for progression (2) Pre-syncope Comment: suspect in setting of volume depletion s/p IVF monitor PT eval (3) Lymphoma Comment: pt prefers to follow with timmy payton (4) DVT prophylaxis Comment: lovenox
[2016-10-18 18:20] LABS: CSF Glucose 61 mg/dL (40-70)
[2016-10-18 18:47] LABS: Body Fluid Appearance Clear
[2016-10-18 18:55] LABS: BF WBC Count #1 3; BF WBC Count #2 3; WBC counts within 15%? Yes
[2016-10-18 18:56] LABS: BF RBC Count #1 2; BF RBC Count #2 2; Body Fluid WBC 3 /mcL; RBC counts within 6%? Yes
[2016-10-18 19:06] LABS: Body Fluid Total Cells Counted 13
[2016-10-18] MEDS: Enoxaparin(*) 40 MG/0.4 ML SYR SUBCUT SCH (19:19)
--- NOTE | 2016-10-19 00:53 | PN ---
NEUROLOGICAL FOLLOWUP NOTE: DATE OF FOLLOWUP/DICTATION: 10/18/16 PATIENT OF: Dr. Renee. HISTORY: Mercy got several liters of IV fluid last night and feels less lightheaded; however, she notes that she has never had a problem with walking and she feels unsure of herself and she is up and out of her bed and is concerned that she might fall, but this is a new sensation for her. She does not feel any difference than she did yesterday. Medications just p.r.n. Zofran, subcu Lovenox. PHYSICAL EXAMINATION: Temperature 97.9, pulse 89, respirations 16, blood pressure 126/61. She is alert and oriented with normal speech and comprehension. Cranial nerves II through XII are intact. Fundi showed sharp discs. There is no nystagmus. Motor exam revealed normal tone and strength. Her gait remained somewhat unsteady and slightly wide based and she had an unsteady Romberg. Glove- stocking and vibratory sensory loss and trace ankle jerks, but 1+ reflexes elsewhere. ASSESSMENT: Mercy most likely had a component of near syncope with some intravascular volume depletion; however, in addition she has signs that are most suggestive of a neuropathy with imbalance gait, glove-stocking and vibratory sensory loss. We will get a nerve conduction study now. She has declined a spinal tap, in the process of rediscussing this with her. Physical Therapy will see her. She is clinically stable from yesterday and then we will discuss the plan with Dr. Renee further after I do the nerve conduction study. Thank you for sharing her case. [id number]/[facility] #: [id number] ANAHI
--- NOTE | 2016-10-19 02:24 | PM ---
[facility] NOTE: DATE OF VISIT: 10/18/16 - ROOM #447 CHIEF COMPLAINT: Dizziness in the setting of lymphoma. BRIEF HISTORY: The patient is a 76-year-old female who was admitted to the hospital with complaints of dizziness and admitted to the hospital for further care. She was recently diagnosed with follicular cell lymphoma. She has a large amount of ascites and is part of the workup for her dizziness and near syncope. Dr. Marcano was consulted and recommended a lumbar puncture to rule out carcinomatous meningitis or lymphocytic meningitis. I was called to provide the lumbar puncture for the patient. I did review her medication and she had not received her Lovenox today. She last received a dose last evening. She is scheduled to get one tonight. I talked to her about the lumbar puncture, the risks, benefits, and alternatives to the procedure and after discussing with her, informed consent was obtained. PROCEDURE NOTE: The patient was placed in a sitting position. Her whole back was prepped and draped in the usual sterile fashion. 3 cc of 1% lidocaine was used for local anesthesia at the L3-4 interspace. I then used a 20-gauge introducer, inserted it into the interspinous ligament at L3-4. I then proceeded to pass a 25- gauge Pencan needle into the subarachnoid space with good free flow of clear cerebrospinal fluid. I proceeded to collect 4 vials of cerebrospinal fluid. The needle and introducer were withdrawn and the CSF was sent to the laboratory for analysis. The patient tolerated the procedure well. [id number]/[facility] #: [id number] MTDD
[2016-10-19 12:22] LABS: Folate 10.14 ng/mL (>3.99)
[2016-10-19] MEDS: Nystatin TOP POWDER* 15 GM BTL TOPICAL SCH (14:21)
[2016-10-19 17:28] VITALS: BP 111/56
--- NOTE | 2016-10-20 02:01 | PN ---
NEUROLOGIC FOLLOWUP: DATE OF FOLLOWUP/DICTATION: 10/19/16 PATIENT OF: Dr. Renee. HISTORY: Mercy denies any change in her walking. She still feels unsteady, but has felt this way for the past several days' time. She has no headache and tolerated this spinal tap without any problem. There is no significant numbness. She has had no visual blurriness recently. MEDICATIONS: Just her p.r.n. medicines and nystatin. PHYSICAL EXAMINATION: Temperature 97.2, pulse 90, respiration 16, blood pressure 115/61. She is alert and oriented with normal speech and comprehension. Cranial nerves II through XII were intact. There was no nystagmus. Motor exam revealed normal tone and strength. Her walking was still somewhat unsteady with trace ankle jerks, but 1+ reflexes elsewhere. Chest clear. Cardiovascular: Regular rate and rhythm. She still has significant ascites. LABORATORY DATA: Her spinal tap was done yesterday and showed 3 white cells, 2 red cells, protein of 30, and cytology is pending. Her EMG nerve conduction study showed a mild peripheral neuropathy, but along the tracts, but not prolonged. I discussed with her and Dr. Renee if the spinal tap results do not show at first pass any evidence for lymphomatous meningitis and the protein was not elevated, which would argue against Guillain-[place], there was evidence of a peripheral neuropathy which probably explains her imbalance, but without significant slowing or long tract and with a negative CSF and with the patient being unchanged over the past several days' time, I would not treat with IVIG at this point, but discussed this with her that if she worsens in the near future, she will need to come back and may need to be treated. I have discussed with Dr. Renee and he will send off B12, folate, thyroid, SPEP before she leaves and she will be seeing her team at [facility] on Saturday. A copy of her records including imaging studies will go with her. It is possible that this could be a paraneoplastic problem, but I would have [facility] sent the studies off to where they would want them go and the treatment for this would be primarily treating her underlying malignancy. It is possible that this can still turn as Guillain-[place], but it is not advancing in the testing so far. Does not strongly support that diagnosis. I would like to see within the next month or so. Thank you for sharing her case. [id number]/[facility] #: [id number] ANAHI
--- NOTE | 2016-10-20 03:00 | DS ---
DISCHARGE SUMMARY: DATE OF ADMISSION: 10/17/16 DATE OF DISCHARGE: 10/19/16 PRIMARY CARE PROVIDER: Dr. Holland. ONCOLOGIST: Dr. Mushtaq Maloney at [facility]. PRIMARY DIAGNOSIS: Near syncope. SECONDARY DIAGNOSES: 1. Lymphoma. 2. Newly diagnosed peripheral neuropathy. 3. Prediabetes. 4. Reported history of chronic obstructive pulmonary disease. 5. Hypertension. MEDICATIONS ON DISCHARGE: Include acetaminophen 650 mg every 4 hours as needed for fever or pain. PROCEDURES PERFORMED DURING HOSPITAL STAY: 1. Lumbar puncture. 2. EMGs. PERTINENT LABORATORY DATA: CSF Gram-stain and culture, no organisms seen, no neutrophils seen. Total CSF white blood cell count 3, total rbc's 2, total cell count 13, total glucose 61, and total protein 30. Labs to follow up after discharge include: 1. CSF cytology. 2. Serum B12 and folate. HISTORY OF PRESENT ILLNESS AND HOSPITAL COURSE: This is a 76-year-old female with past medical history as outlined in the history of present illness on the day of admission including recently diagnosed left retroperitoneal mass represent follicular lymphoma based on recent biopsy, pending a CT/PET 2 days after discharge as well as excisional biopsy to rule high-grade B cell lymphoma with the above diagnosis in the setting of new abdominal ascites, status post large volume paracentesis on 10/01/16, presented to the hospital in the setting of presyncopal episode accompanied with visual changes. She was admitted to the hospital and observed on telemetry without any notable arrhythmias. She received several liters of IV crystalloids with resolution of her symptoms. She received a Neurology consultation. The detailed exam was notable for positive Romberg as well as wide- based gait and peripheral neuropathy in stocking-glove distribution. Because of her previous diagnosis of lymphoma as well as new neurological symptoms and clinical presentation, the patient was admitted to the hospital and received a lumbar puncture, rule out such etiology as lymphocytic meningitis with the above findings resulting, although CSF cytology is still pending. Additional EMGs were performed, which did indicate peripheral neuropathy, which was thought to be new, although not rapidly progressive during the course of her observation in the hospital stay. The patient will be discharged on no new medications, although B12 and folate were added on to her labs here should be followed as an outpatient and there should be attention paid to her clinical symptoms. Should they be rapidly progressive, she should return to the emergency room, which was discussed at length with the patient. There are also may be concern for checking SPEP/UPEP based on clinical findings. During the course of hospital stay, she also had a CTA which was negative for central intracranial large vessel arterial stenosis as well as negative for carotid or vertebral artery occlusion. In addition, she had an MRI with final impression of a normal MRI of the brain. FOLLOWUP INSTRUCTIONS: At followup, please: 1. Evaluate for progression of peripheral neuropathy. 2. Follow up for cytology of CSF. 3. Follow up folate and B12. 4. Consider SPEP/UPEP. 5. Ensure followup with the patient's oncologist. Reasons to return to the hospital included but not limited to recurrent or worsening symptoms including syncope or near syncope, changes in vision, changes in sensation or strength, nausea, vomiting, lightheadedness, chest pain or shortness of breath, bleeding from any source, inability to obtain or tolerate any medications discussed with the patient. She acknowledged understanding. TIME SPENT: Greater than 75 minutes was spent in the discharge of this patient , greater than half was spent [id number] with the patient. [id number]/[facility] #: [id number] ANAHI
== END 2016-10-19 18:00 | disposition home or self-care (01) | DRG 641 ==
LOC: ED 11:09 → MEDTELE 16:58
PROVIDERS: ADMIT Internal Medicine; ATTEND Internal Medicine
PROC: 009U3ZX Drainage of Spinal Canal, Percutaneous Approach, Diagnostic (ICD-10-PCS; principal; 2016-10-18)
DX: E86.1 Hypovolemia (principal); C85.90 Non-Hodgkin lymphoma, unspecified, unspecified site; G62.9 Polyneuropathy, unspecified; N13.39 Other hydronephrosis; J44.9 Chronic obstructive pulmonary disease, unspecified; R73.03 Prediabetes; I10 Essential (primary) hypertension; E78.5 Hyperlipidemia, unspecified; Z88.2 Allergy status to sulfonamides
CPT/HCPCS: 36415; 70450; 70496; 70498; 70551; 71010; 80053; 81003; 82607; 82746; 82945; 83605; 83690; 83735; 84157; 84443; 84484; 85025; 85610; 85730; 86140; 87070; 87205; 88112; 89051; 93005; 95886; 95909; 99213; A9270-GY; G0463; J1650; Q9967

== ENCOUNTER 2016-11-07 01:16 | Observation (INO) | payer MEDICARE ==
[2016-11-07] MEDS ORDERED: Ondansetron INJ* 2 MG/ML VIAL IV ONE (01:54)
[2016-11-07] MEDS ORDERED: NS 0.9% 1000 ML* 1,000 ML IV ONE (01:54)
[2016-11-07 03:09] LABS: Hematocrit 32 % (35-47); Hemoglobin 10.5 g/dl (12.0-16.0); Mean Corpuscular HGB Conc 33 g/dl (31-36); Mean Corpuscular Hemoglobin 26 pg (27-31); Mean Corpuscular Volume 79 fL (80-97); Mean Platelet Volume 8 um3 (7.4-10.4); Red Blood Count 3.98 10^6/ul (4.0-5.4); Red Cell Distribution Width 14 % (10.5-15); White Blood Count 0.2 10^3/ul (3.5-10.8)
[2016-11-07 03:10] LABS: Comments Flag Yes
[2016-11-07 03:11] LABS: Add Diff/Slide Review? Slide Review Added
[2016-11-07 03:21] LABS: ALT 9 U/L (7-52); AST 10 U/L (13-39); Albumin 3.1 g/dL (3.2-5.2); Alkaline Phosphatase 47 U/L (34-104); Anion Gap 8 mmol/L (2-11); BUN/Creatinine Ratio 28.6 (8-20); Blood Urea Nitrogen 18 mg/dL (6-24); CO2 Carbon Dioxide 26 mmol/L (22-32); Calcium 8.9 mg/dL (8.6-10.3); Chloride 99 mmol/L (101-111); EGFR African American 118.5 (>60); EGFR Non-African American 92.1 (>60); Globulin 1.9 g/dL (2-4); Glucose 94 mg/dL (70-100); Lipase < 10 U/L (11.0-82.0); Potassium 3.8 mmol/L (3.5-5.0); Sodium 133 mmol/L (133-145)
[2016-11-07] MEDS ORDERED: Acyclovir* 400 MG TAB PO ONE (04:45)
[2016-11-07] MEDS ORDERED: Fluconazole 150 MG (NF) 150 MG TAB PO ONE (04:45)
[2016-11-07] MEDS ORDERED: Levofloxacin 500 MG IVPREMIX(* 500 MG/100 ML BAG IVPB ONE (04:46)
[2016-11-07] MEDS ORDERED: Fluconazole 100 MG TAB* TAB PO ONE (05:00)
--- NOTE | 2016-11-07 05:12 | ED ---
Jeni Angulo Thomas, scribed for Mariano Durbin on 11/07/16 at 0200 . GI/ HPI - HPI Summary HPI Summary: The pt is a 76 y/o F presenting to the ED c/o N/V that began two days ago. She vomited twice this evening. The N/V is aggravated by eating and drinking. It is alleviated by nothing. The patient has treated the vomiting with Allopurinol [employer]EE [employer]GER. Pt additionally c/o decreased urine output, decrease fluid intake, and decreased flatus. Pt denies fever and abd pain. She has a PMHx of follicular lymphoma stage II that was diagnosed 08/26/16. She reports that there is concern for metastasis and her mass is [id number]. She last had chemotherapy 7 days ago. This is the first of five chemotherapy courses. In the examination room, she refuses XR and CT. - History of Current Complaint Chief Complaint: EDNauseaVomitDiarrh Time Seen by Provider: 11/07/16 01:33 Stated Complaint: GENERAL ILLNESS Hx Obtained From: Patient, Family/Rn Transplant - male in room Onset/Duration: Started Days Ago - 2, Still Present Timing: Constant Pain Intensity: 0 Associated Signs and Symptoms: Positive: Nausea, Vomiting - 2x today, Other: - POS: decreased urine output, decreased fluid intake, decreased flatus. Negative : Fever, Abdominal Pain Aggravating Factor(s): Food, Liquids Alleviating Factor(s): Nothing - Additional Pertinent History Primary Care Physician: [id number] - Allergy/Home Medications Allergies/Adverse Reactions: Allergies Allergy/AdvReac Type Severity Reaction Status Date / Time Sulfa Antibiotics AdvReac See Comment Verified 10/17/16 11:37 PMH/Surg Hx/FS Hx/Imm Hx Previously Healthy: No Endocrine/Hematology History: Denies: Hx Diabetes Cardiovascular History: Reports: Hx Hypercholesterolemia, Other Cardiovascular Problems/Disorders - moderate atheroschlerosis Denies: Hx Hypertension, Hx Pacemaker/ICD GI History: Reports: Hx Gastrointestinal Bleed, Other GI Disorders - abdominal mass, ascites History: Reports: Other Problems/Disorders - UTI's Denies: Hx Renal Disease Sensory History: Reports: Hx Contacts or Glasses Denies: Hx Hearing Aid Opthamlomology History: Reports: Hx Contacts or Glasses Neurological History: Comment Only: 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 FOLLICULAR LYMPHOMA Hx Chemotherapy: No - Surgical History Surgery Procedure, Year, and Place: appy as "a teenager" Infectious Disease History: No Infectious Disease History: Denies: Hx Clostridium Difficile, Hx Hepatitis, Hx Human Immunodeficiency Virus (HIV), Hx of Known/Suspected MRSA, Hx Shingles, Hx Tuberculosis, Hx Known/ Suspected VRE, Hx Known/Suspected VRSA, History Other Infectious Disease, Traveled Outside the [place] in Last 30 Days - Family History Known Family History: Negative: Cardiac Disease - denies family hx of, Diabetes - Social History Alcohol Use: None Hx Substance Use: No Substance Use Type: Reports: None Smoking Status (MU): Never Smoked Tobacco Review of Systems Negative: Fever Positive: Vomiting, Nausea, Other - POS: decreased fluid intake, decreased flatus. Negative: Abdominal Pain Positive: other - POS: decreased urine output All Other Systems Reviewed And Are Negative: Yes Physical Exam Triage Information Reviewed: Yes Vital Signs On Initial Exam: Initial Vitals Temp Pulse Resp BP Pulse Ox 98.2 F 99 18 149/74 95 11/07/16 01:25 11/07/16 01:25 11/07/16 01:25 11/07/16 01:25 11/07/16 01:25 Vital Signs Reviewed: Yes Appearance: Positive: Well-Appearing, No Pain Distress Skin: Positive: Warm, Skin Color Reflects Adequate Perfusion, Dry Head/Face: Positive: Normal Head/Face Inspection Eyes: Positive: EOMI, JESSICA ENT: Positive: Other - Dry mucous membranes. Neck: Positive: Supple, Nontender Respiratory/Lung Sounds: Positive: Clear to Auscultation, Breath Sounds Present Cardiovascular: Positive: RRR, Pulses are Symmetrical in both Upper and Lower Extremities Abdomen Description: Positive: Soft, Distended Bowel Sounds: Positive: Present Musculoskeletal: Positive: Strength/ROM Intact, Edema Left, Edema Right Neurological: Positive: Normal, Sensory/Motor Intact, Alert, Oriented to Person Place, Time Diagnostics - Vital Signs Vital Signs Temp Pulse Resp BP Pulse Ox 11/07/16 01:25 98.2 F 99 18 149/74 95 - Laboratory Lab Results: Lab Results 11/07/16 11/07/16 11/07/16 Range/Units 02:55 02:55 02:55 WBC 0.2 L (3.5-10.8) 10^3/ul RBC 3.98 L (4.0-5.4) 10^6/ul Hgb 10.5 L (12.0-16.0) g/dl Hct 32 L (35-47) % MCV 79 L (80-97) fL MCH 26 L (27-31) pg MCHC 33 (31-36) g/dl RDW 14 (10.5-15) % Plt Count 52 L (150-450) 10^3/ul MPV 8 (7.4-10.4) um3 Neut % (Auto) 24.5 L (38-83) % Lymph % (Auto) 31.0 (25-47) % [place] % (Auto) 34.2 H (1-9) % Eos % (Auto) 9.3 H (0-6) % Baso % (Auto) 1.0 (0-2) % Absolute Neuts (auto) 0.1 L* (1.5-7.7) 10^3/ul Absolute Lymphs (auto) 0.1 L (1.0-4.8) 10^3/ul Absolute Monos (auto) 0.1 (0-0.8) 10^3/ul Absolute Eos (auto) 0 (0-0.6) 10^3/ul Absolute Basos (auto) 0 (0-0.2) 10^3/ul Absolute Nucleated RBC 0 10^3/ul Nucleated RBC % 0.3 APTT 58.4 H (26.0-36.3) seconds Sodium 133 (133-145) mmol/L Potassium 3.8 (3.5-5.0) mmol/L Chloride 99 L (101-111) mmol/L Carbon Dioxide 26 (22-32) mmol/L Anion Gap 8 (2-11) mmol/L BUN 18 (6-24) mg/dL Creatinine 0.63 (0.51-0.95) mg/dL Est GFR ( Amer) 118.5 (>60) Est GFR (Non-Af Amer) 92.1 (>60) BUN/Creatinine Ratio 28.6 H (8-20) Glucose 94 (70-100) mg/dL Calcium 8.9 (8.6-10.3) mg/dL Total Bilirubin 1.20 H (0.2-1.0) mg/dL AST 10 L (13-39) U/L ALT 9 (7-52) U/L Alkaline Phosphatase 47 (34-104) U/L Troponin I 0.00 (<0.04) ng/mL Total Protein 5.0 L (6.4-8.9) g/dL Albumin 3.1 L (3.2-5.2) g/dL Globulin 1.9 L (2-4) g/dL Albumin/Globulin Ratio 1.6 (1-3) Lipase < 10 L (11.0-82.0) U/L Result Diagrams: 11/07/16 02:55 11/07/16 02:55 Lab Statement: Any lab studies that have been ordered have been reviewed, and results considered in the medical decision making process. - CT CT Abd/Pel CT Interpretation: Positive (See Comments) - Slight decrease in size of 25.6 cm long left retroperitoneal tumor which encases the left kidney and aorta. Moderate left hydronephrosis is likely unchanged. No change in moderate size left pleural effusion. Decreasing small pericardial effusion. Decreasing small to moderate amount of ascites. CT Interpretation Completed By: Radiologist Re-Evaluation - Re-Evaluation First Eval Re-Evaluation Time: 02:30 Change: Improved Comment: The patient now consents to a CT Abd/Pel GIGU Course/Dx - Course Assessment/Plan: The patient presents with N/V, decreased fluid intake, decreased flatus. She denies abd pain. She has a PMHx of follicular CA stage II diagnosed 08/2016. Initially, she refuses XR and CT and only wishes to be hydrated. However, after some time the patient consented to a CT Abd/Pel. In the ED course she was given IV fluids and Zofran. Labs were obtained. She is diagnosed with weakness, dehydration, and pancytopenia. I admitted the patient to Dr. Benton. - Diagnoses Provider Diagnoses: Weakness, Dehydration, Pancytopenia, Lymphoma, Neutropenia - Physician Notifications Discussed Care Of Patient With: Sly Benton Time Discussed With Above Provider: 04:52 Instructed by Provider To: Other - I discussed the case with Dr. Benton, terrazzo helper, who will admit the patient in the AM once a bed frees up. - Critical Care Time Critical Care Time: 30-74 min Discharge - Discharge Plan Condition: Fair Disposition: ADMITTED TO [facility] Referrals: Jud Holland MD [Primary Care Provider] - The documentation as recorded by the Jeni ely Thomas accurately reflects the service I personally performed and the decisions made by me, Mariano Durbin.
[2016-11-07] MEDS ORDERED: Acetaminophen TAB* 325 MG PO PRN (06:42)
[2016-11-07] MEDS ORDERED: Ondansetron INJ* 2 MG/ML VIAL IV PRN ×2 (06:46→18:34)
[2016-11-07 06:53] LABS: Urine Bacteria Absent (Absent); Urine Bilirubin Negative (Negative); Urine Glucose Negative (Negative); Urine Nitrite Positive (Negative)
--- NOTE | 2016-11-07 08:02 | RAD ---
CLINICAL HISTORY: Abdominal pain and vomiting. 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 COMPARISON: Most recent CT of the abdomen is dated September 27, 2016 TECHNIQUE: Noncontrast CT examination of the abdomen and pelvis from the lung bases through the initial tuberosities. FINDINGS: VISUALIZED LUNG BASES: Again seen is a moderate to large left-sided pleural effusion causing compressive atelectasis of the left lower lobe. ABDOMEN AND PELVIS: Evaluation of the solid organs and vasculature is limited without intravenous contrast. In the right subcapsular liver there is a fluid density cyst unchanged in the previous CT examination. The liver is otherwise homogenous in attenuation with no biliary duct dilatation or gross surface irregularity. The spleen, pancreas and adrenal glands are grossly normal in appearance. The gallbladder is normal. The right kidney is normal in appearance without focal mass, calcification or signs of hydronephrosis. The left kidney is poorly defined but there appears to be moderate to severe hydronephrosis, perhaps reduced slightly when compared to the previous CT examination. The left kidney is encased in a heterogeneous soft tissue mass that was better delineated on the patient's prior contrast enhanced CT examination. In the axial plane the mass measures a maximum dimension of 8 x 11.2 cm, slightly decreased from 12.1 x 12.9 cm on the previous CT examination. More inferiorly there is a retroperitoneal mass extending down the left of midline retroperitoneum and into the left hemipelvis measuring a maximum axial dimension of 6 x 10.6 cm, previously 8.6 x 12.5 cm. There is a moderate amount of peritoneal ascites scattered throughout the abdomen, but reduced slightly when compared to the September 27, 2016 CT examination. Evaluation of the gastrointestinal tract is limited without oral contrast. The small bowel does not appear to be pathologically distended. The gas-filled transverse colon measures up to just under 5 cm in diameter but is not pathologically distended. The pelvic viscera is normal in appearance. The coarsely calcified abdominal aorta and iliac arteries are normal in course and diameter. At the inferior margin of the right iliac is muscle (image 73) there is an 8 mm low-density focus that is not more completely characterize on this CT examination. Degenerative changes include multilevel loss of intervertebral disc height involving the lower thoracic and lumbar spine.There are no sinister bone lesions. IMPRESSION: 1. There has been a mild decrease in size of the left perinephric and left lower abdomen and pelvic retroperitoneal soft tissue mass as well as a reduction in the amount of peritoneal ascites. The moderate to large left-sided pleural effusion does not appear changed from the previous CT examination. 2. Loops of colon are top normal but not pathologically dilated according to size criteria. 3. Additional chronic and degenerative changes described in the body the report.
[2016-11-07] MEDS ORDERED: Allopurinol TAB* 300 MG PO SCH (09:00)
--- NOTE | 2016-11-07 09:08 | HP ---
CC: Dr. Holland * DATE OF ADMISSION: CHIEF COMPLAINT: Nausea, vomiting. HISTORY OF PRESENT ILLNESS: The patient is a 76-year-old woman who just underwent her first dose of immunotherapy for follicular lymphoma about a week ago. She said she ended up having tumor lysis syndrome and was hospitalized at [facility] up until this past Saturday. Since she has gotten home, however, she has been quite nauseated and unable to keep anything down. She says just a glass of water makes her vomit. She came back here on Saturday, but apparently was sent back home. She has no abdominal pain, but just distended. The ER doctor spoke to [facility], who wanted her admitted and rehydrated because it was necessary due to the type of chemotherapy she received and to make sure she keeps well hydrated. PAST MEDICAL HISTORY: Significant for the recently diagnosed follicular lymphoma in September 2016, status post R-CHOP therapy on 10/29 and who received Neulasta 10/31. She has ascites and moderate to severe left hydronephrosis. She has tumor lysis syndrome, peripheral neuropathy, hypertension. MEDICATIONS: Current medications include only. 1. Allopurinol 300 mg daily. 2. Acetaminophen 650 mg every four hours as needed. ALLERGIES: She has an allergy/adverse to SULFA ANTIBIOTICS. FAMILY HISTORY: The patient is adopted. SOCIAL HISTORY: No tobacco, no alcohol, recreational drug use. 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 REVIEW OF SYSTEMS: A 14-point review of systems was completed with the patient. All pertinent positives and negatives are in the history of present illness, otherwise negative. PHYSICAL EXAMINATION GENERAL: A pleasant woman lying in bed, in no acute distress. VITAL SIGNS: Blood pressure 126/67, pulse ox 93%, heart rate 94 beats per minute, temperature 98.2 degrees. HEENT: Normocephalic and atraumatic. Pupils are equal, round and reactive to light. Dry mucous membranes. NECK: Supple. No JVD, bruits, palpable thyroid or lymphadenopathy. CHEST: Clear to auscultation and percussion bilaterally. CARDIOVASCULAR: S1, S2 appreciated. ABDOMEN: Distended, but no rebound, guarding or rigidity. No pain. EXTREMITIES: No cyanosis, clubbing, or edema. +2 peripheral pulses bilaterally. NEUROLOGIC: Alert and oriented x3. Moves all extremities. SKIN: No rashes or abnormalities specific for skin turgor. LABORATORY DATA: White count is 0.2, hemoglobin 10.5, hematocrit 32, platelets 5. Absolute neutrophil 0.1 Sodium 133, potassium 3.8, chloride 99, CO2 26, BUN 13, creatinine 0.63, glucose 94. Abdominal pelvic CT not available for my review at this time. ASSESSMENT AND PLAN: 1. Intractable nausea and vomiting. We will rehydrated the patient with normal 150 cc an hour. Zofran p.r.n. for nausea. Hopefully this will resolve soon and the patient can go home. The patient would like to go to [facility] if she stays for a prolonged period as she is well know there now and recently given her treatment that may have initiated this issue. 2. Neutropenia. The patient did not have a fever. Apparently, the [facility] oncologist on-call wanted the patient to be put on Diflucan, acyclovir and Levaquin anyway. She received in the ED. However, since the patient has no fever, I do not see a reason to continue that now. We can modify her regimen if necessary at a later time. 3. FEN. Regular diet. 4. DVT prophylaxis. She wears compression stockings. No heparin with her thrombocytopenia. 5. The patient is a full code. TIME SEEN: Over 75 minutes was spent on this H and P, more than 40 minutes was spent on direct [id number] contact with the patient in evaluation, physical exam, counseling, and coordination of care. [id number]/[facility] #: [id number] MTDD
[2016-11-07] MEDS: NS 0.9% 1000 ML* 1,000 ML IV SCH ×2 (10:33→17:36)
[2016-11-07] MEDS ORDERED: PROCHLORPERAZINE INJ 5 MG/ML 2 ML VIAL IV PRN ×2 (14:02→18:34)
[2016-11-07] MEDS ORDERED: LORazepam INJ* 2 MG/ML 1 ML VIAL IV PUSH PRN (18:34)
[2016-11-07] MEDS: Allopurinol TAB* 300 MG PO SCH (23:50)
[2016-11-07] MEDS: Simethicone CHEW TAB* 80 MG PO PRN (23:58)
[2016-11-08 06:29] LABS: Hematocrit 31 % (35-47); Hemoglobin 10.3 g/dl (12.0-16.0); Mean Corpuscular HGB Conc 34 g/dl (31-36); Mean Corpuscular Hemoglobin 27 pg (27-31); Mean Corpuscular Volume 79 fL (80-97); Mean Platelet Volume 9 um3 (7.4-10.4); Red Blood Count 3.88 10^6/ul (4.0-5.4); Red Cell Distribution Width 15 % (10.5-15); White Blood Count 1.8 10^3/ul (3.5-10.8)
[2016-11-08 06:31] LABS: Add Diff/Slide Review? Slide Review Added; Comments Flag Yes
[2016-11-08 06:44] LABS: BUN/Creatinine Ratio 25.5 (8-20); Calcium 8.4 mg/dL (8.6-10.3); EGFR African American 138.6 (>60); EGFR Non-African American 107.8 (>60); Potassium 3.5 mmol/L (3.5-5.0)
[2016-11-08 07:12] LABS: Immature Granulocytes 13 % (0-9); Myelocytes % 1 % (0-1); Neutrophil % 66 % (38-83); Reactive Lymph % 1 % (0-6)
[2016-11-08 07:13] LABS: Toxic Granulation 1+
[2016-11-08 07:17] LABS: Add Path Review? YES
[2016-11-08] MEDS ORDERED: Omeprazole CAP* 20 MG PO SCH (07:30)
[2016-11-08] MEDS: Simethicone CHEW TAB* 80 MG PO PRN ×2 (07:43→17:34)
--- NOTE | 2016-11-08 21:28 | PN ---
Subjective Date of Service: 11/08/16 Interval History: . evaluated patient earlier today plan for dc in AM. denies further N&V; compazine helped a lot as well as simethicone (reportedly) patient in touch with physician at [facility] -- travelling there tomorrow morning with her son who rented a caravan to do so. I called Dr. Vanegas and she ended up speaking with patient about goals of appointment tomorrow. Antiemetics were prescribed to her outpatient pharmacy labs improved from yesterday; WBC 0.2 to 1.8 denies new c/o. plan for dc in AM. . Family History: Unchanged from Admission Social History: Unchanged from Admission Past Medical History: Unchanged from Admission Objective Active Medications: . Acetaminophen (Tylenol Tab*) 650 mg PO Q4H PRN PRN Reason: FEVER/PAIN Allopurinol (Zyloprim Tab*) 300 mg PO BEDTIME [facility] Last Admin: 11/07/16 23:50 Dose: Not Given Lorazepam (Ativan Inj*) 0.5 mg IV PUSH Q4H PRN PRN Reason: ANXIETY Omeprazole (Prilosec Cap*) 20 mg PO 729 [facility] Last Admin: 11/08/16 07:40 Dose: 20 mg Ondansetron HCl (Zofran Inj*) 8 mg IV Q4H PRN PRN Reason: NAUSEA Prochlorperazine Edisylate (Compazine Inj*) 10 mg IV Q6H PRN PRN Reason: NAUSEA/VOMITING Simethicone (Mylicon*) 80 mg PO Q6H PRN PRN Reason: INDIGESTION Last Admin: 11/08/16 17:34 Dose: 80 mg . Vital Signs 11/07/16 11/08/16 11/08/16 23:41 03:22 07:43 Temperature 98.2 F 98.3 F 98.8 F Pulse Rate 97 102 93 Respiratory 16 16 20 Rate Blood Pressure 144/67 149/76 129/55 (mmHg) O2 Sat by Pulse 95 96 95 Oximetry 11/08/16 11/08/16 11/08/16 07:48 11:11 15:59 Temperature 98.1 F 98.5 F Pulse Rate 93 93 Respiratory 19 18 23 Rate Blood Pressure 138/69 150/80 (mmHg) O2 Sat by Pulse 97 96 Oximetry Appearance: NAD Ears/Nose/Mouth/Throat: Clear Oropharnyx Neck: NL Appearance and Movements; NL JVP Respiratory: Symmetrical Chest Expansion and Respiratory Effort Cardiovascular: NL Sounds; No Murmurs; No JVD Abdominal: - - distended with ascites Lymphatic: No Cervical Adenopathy Extremities: No Edema Skin: No Rash or Ulcers Neurological: Alert and Oriented x 3 Lines/Tubes/Other Access: Clean, Dry and Intact Peripheral IV Nutrition: Taking PO's Result Diagrams: 11/08/16 05:45 11/08/16 05:45 Additional Lab and Data: . Assess/Plan/Problems-Billing . Assessment: 76 yo female s/p chemotherapy for follicular lymphoma, complicated by mild tumor lysis syndrome, now with recurrent N/V that has resolved with hydration and anti-emetics. . - Patient Problems (1) Nausea and vomiting Current Visit: Yes Status: Acute Priority: High Code(s): R11.2 - NAUSEA WITH VOMITING, UNSPECIFIED Comment: - IV zofran - IV compazine - IV fluids (2) Lymphoma Current Visit: Yes Status: Acute Priority: High Comment: - s/p chemotherapy (3) Tumor lysis syndrome following antineoplastic drug therapy Current Visit: Yes Status: Acute Priority: High Code(s): E88.3 - TUMOR LYSIS SYNDROME Comment: - not active at this time; creatinine 0.55.
[2016-11-08] MEDS: Allopurinol TAB* 300 MG PO SCH (22:33)
[2016-11-09] MEDS: Simethicone CHEW TAB* 80 MG PO PRN ×2 (02:40→06:19)
[2016-11-09 07:04] VITALS: BP 129/69
--- NOTE | 2016-11-09 10:37 | DS ---
CC: Dr. Jud Holland; Dr. Elise Vanegas, [facility] [place] * DISCHARGE SUMMARY: DATE OF ADMISSION: 11/07/16 DATE OF DISCHARGE: 11/09/16 (dictated in advance). STATUS DURING HOSPITALIZATION: Observation. PRIMARY CARE PROVIDER: Dr. Holland, [facility]. ONCOLOGIST: Dr. Vanegas, [facility]. PRIMARY DISCHARGE DIAGNOSIS: Nausea and vomiting following chemotherapy for follicular lymphoma approximately 1 week prior to admission. SECONDARY DIAGNOSES: 1. Follicular lymphoma diagnosed in September 2016, status post R-CHOP therapy on October 29 with subsequent Neulasta on October 31 with ascites and moderate to severe left hydronephrosis. 2. Tumor lysis syndrome. 3. Peripheral neuropathy. 4. Hypertension. DISCHARGE MEDICATIONS: 1. Allopurinol 300 mg by mouth daily. 2. Acetaminophen 650 mg by mouth every 4 hours as needed. 3. Zofran 4 mg p.o. q.6 hours p.r.n. 4. Compazine 10 mg by mouth every 6 hours p.r.n. nausea and vomiting. HISTORY OF PRESENT ILLNESS AND HOSPITAL COURSE: Please see the H and P by Dr. Sly Benton on 11/07/16. In brief, Ms. Chery is a 76-year-old woman who underwent her first dose of immunotherapy for follicular lymphoma approximately a week prior to admission. The patient struggled with tumor lysis syndrome in the period following therapy and was hospitalized at [place] up until a few days prior to this presentation. The patient went home and was quite nauseated and unable to maintain any flood or liquid. Even 1 glass of water made her vomit. The patient came to the emergency room and was hydrated and went home, but she continued to do poorly. The ER team apparently spoke to [facility] team, who advised admission and rehydration secondary to the kind of chemotherapy received and to ensure she was well-hydrated. This was accomplished and the patient had ongoing nausea and vomiting that resolved on the medical records field technician of 11/08/16 unexpectedly with a dose of simethicone ( following fairly good doses of Zofran and Compazine). The patient also received a dose of Ativan in hopes that there was an anxiety component to her continued nausea and vomiting. Following the cessation of her nausea and vomiting, the patient was in better spirits. She was interested in travelling to [facility] to speak with her oncologist. She seemed so emphatic that she asked her son to rent a caravan and they were going to leave the evening of November 08 to be readmitted in [place]. I called Dr. Vanegas and she spoke directly to Ms. Chery and convinced the patient to accept an outpatient appointment on November 09. I agreed out of curtesy to allow Ms. Chery to stay 1 more evening in observation status and leave early in the morning of 03/27 with her son. The exact time of her departure will be dependent on the final appointment that Dr. Vanegas's staff will communicate to Ms. Chery. Ms. Chery is stable at this time. She was given return to ED instructions if she has any worrisome symptoms that arise or do not quickly jarvis. The patient had Zofran and Compazine prescribed to her outpatient pharmacy. The discharge was prepared in advance and all questions will be referred back to Dr. Clemente if any arise immediately following discharge. TIME SPENT: Total time taken to discharge Ms. Chery was 45 minutes, greater than half that time was spent going of the details of the discharge instructions and will plan to follow up with Dr. Vanegas in [facility]. [id number]/[facility] #: [id number] [facility]OSPITALWillis
== END 2016-11-09 07:30 | disposition home or self-care (01) ==
LOC: ED 01:16 → MED 06:46
PROVIDERS: ADMIT Internal Medicine; ATTEND Internal Medicine
DX: R11.2 Nausea with vomiting, unspecified (principal); C82.93 Follicular lymphoma, unspecified, intra-abdominal lymph nodes; E86.0 Dehydration; N13.30 Unspecified hydronephrosis; R18.8 Other ascites; J90 Pleural effusion, not elsewhere classified; I31.3 Pericardial effusion (noninflammatory); D61.818 Other pancytopenia; E88.3 Tumor lysis syndrome; G62.9 Polyneuropathy, unspecified; Z79.899 Other long term (current) drug therapy
CPT/HCPCS: 36415; 74176; 80048; 80053; 81003; 81015; 83605; 83690; 84484; 85025; 85060; 85730; 87086; 96365; 96375; 99284; A9270-GY; G0378; J0780; J1642; J1956; J2405

== ENCOUNTER 2017-02-16 09:53 | Emergency (ER) | payer MEDICARE ==
[2017-02-16 10:23] LABS: Urine Bacteria Absent (Absent); Urine Bilirubin Negative (Negative); Urine Glucose Negative (Negative); Urine Nitrite Negative (Negative)
[2017-02-16 10:29] LABS: Hematocrit 27 % (35-47); Hemoglobin 9.2 g/dl (12.0-16.0); Mean Corpuscular HGB Conc 33 g/dl (31-36); Mean Corpuscular Hemoglobin 31 pg (27-31); Mean Corpuscular Volume 93 fL (80-97); Mean Platelet Volume 9 um3 (7.4-10.4); Red Blood Count 2.94 10^6/ul (4.0-5.4); Red Cell Distribution Width 16 % (10.5-15); White Blood Count 18.2 10^3/ul (3.5-10.8)
[2017-02-16 10:38] LABS: Add Diff/Slide Review? Manual Diff Added; Comments Flag Yes
[2017-02-16 10:46] LABS: Albumin 3.8 g/dL (3.2-5.2); BUN/Creatinine Ratio 36.9 (8-20); Calcium 9.5 mg/dL (8.6-10.3); EGFR African American 114.3 (>60); EGFR Non-African American 88.9 (>60); Globulin 1.9 g/dL (2-4); Magnesium 1.9 mg/dL (1.9-2.7); Potassium 3.4 mmol/L (3.5-5.0); Total Bilirubin 0.6 mg/dL (0.2-1.0); Total Protein 5.7 g/dL (6.4-8.9)
[2017-02-16 10:51] LABS: Troponin I 0.07 ng/mL (<0.04)
[2017-02-16 10:59] LABS: Digoxin 1.6 ng/ml (0.8-2.0)
[2017-02-16] MEDS ORDERED: Potassium Chlor TAB* 20 MEQ TAB.ER PO ONE ×2 (11:07→13:18)
[2017-02-16 11:08] LABS: Add Path Review? YES; Hypochromasia 1+; Immature Granulocytes 2 % (0-9); Neutrophil % 98 % (38-83)
[2017-02-16 11:14] LABS: TSH (Thyroid Stimulating Horm) 0.26 mcIU/mL (0.34-5.60)
--- NOTE | 2017-02-16 11:16 | RAD ---
Indication: Palpitations. Oncology patient on chemotherapy. Comparison: January 06, 2017 CT. Technique: Sitting AP and lateral chest views. Report: Moderately large dependent LEFT pleural effusion with proportional atelectasis is unchanged compared with the January 06, 2017 exam. The RIGHT lung and pleural space remain grossly clear. Negative for pneumothorax. Tip of RIGHT chest port is at the level of the superior vena cava directed central without change. Negative for cardiomegaly. Unremarkable central pulmonary vasculature and mediastinal contours. Negative for free air beneath the diaphragm. IMPRESSION: Persistent moderately large dependent LEFT pleural effusion with proportional atelectasis. No compelling evidence for pulmonary edema.
[2017-02-16 12:10] LABS: Free T3 2.5 pg/mL (2.5-3.9)
[2017-02-16 12:12] LABS: Free T4 0.94 ng/dL (0.61-1.12)
[2017-02-16] MEDS: Potassium Chloride LIQUID* 20 MEQ PACKET PO ONE ×2 (13:14→13:24)
[2017-02-16 15:25] VITALS: BP 118/54
--- NOTE | 2017-02-16 21:00 | CONS ---
ADDENDUM NOW INCLUDED ON THIS REPORT CC: Dr. Holland; Dr. Hernandez; Dr. Vanegas, [facility] [place], [place], [place]; Dr. Rutledge * CONSULTATION REPORT: DATE OF CONSULT: 02/16/17 REQUESTING PHYSICIAN: Dr. Rutledge. PRIMARY CARE PROVIDER: Dr. Holland. REASON FOR CONSULTATION: Atrial fibrillation. HISTORY OF PRESENT ILLNESS: Mercy Chery is a 76-year-old female with history of follicular lymphoma diagnosed in September of 2016, currently undergoing chemotherapy with R-CHOP. Her last chemotherapy was last week. For the past 4 days, she had been on prednisone 80 mg daily. She stated that today when she took her prednisone pill, she noted her heart was fluttering again. Last time she had atrial fibrillation was on 01/07/17 when she was noted to be in paroxysmal atrial fibrillation and at that point she was started on digoxin by Dr. Hernandez. The patient stated that she took an additional dose of 0.125 mg of digoxin and by the time she presented to the emergency department, she was back in a sinus rhythm. She stated that her episode of palpitations lasted approximately half an hour or so. She denies any chest pain or shortness of breath with it. Here, she was noted to be mildly hypokalemic which is going to be replaced. The patient was last seen by myself during her hospital stay at the end of December 2016. At this point, the patient was noted to have moderate to large left-sided pleural effusion. The patient stated that since then she has had this effusion tapped at [facility]. PAST MEDICAL HISTORY: 1. Follicular lymphoma as mentioned above. 2. History of Lyme disease in 2017. 3. History of prediabetes. 4. Hypertension in the past, currently the patient has low normal blood pressures since her chemotherapy. 5. History of hiatal hernia. 6. History of paroxysmal atrial fibrillation, not anticoagulated due to thrombocytopenia. 7. Status post D and C. 8. Appendectomy. 9. History of retroperitoneal mass biopsy that turned out to be follicular lymphoma. CURRENT MEDICATIONS: Include: 1. Digoxin 0.125 mg, patient takes a tablet every other day and 2 tablets on Mondays, Wednesdays, and Fridays. 2. Zofran on a p.r.n. basis. 3. Vitamin B12 1000 mcg daily. 4. Acetaminophen on a p.r.n. basis. The patient also had been on prednisone 80 mg daily for the past 4 days. The patient stated that today was her last dose of prednisone after her chemotherapy. ALLERGIES: Include SULFA AND LATEX. FAMILY HISTORY: Mom is living at the age of [id number] years old with history of stroke on the mom's side. SOCIAL HISTORY: The patient is single. 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 She denies any tobacco, alcohol, or drug use. She indicated her son, Ed is her healthcare proxy. His phone number is [phone]. REVIEW OF SYSTEMS: Please see history of present illness. The patient's weight has been stable for the past month. She denies any chest pain or shortness of breath. Her appetite had been fair. All the remaining 12 systems were reviewed with the patient and were otherwise negative. PHYSICAL EXAM: Blood pressure 122/64, heart rate of 81 and regular, respiratory rate 18, oxygen saturation 95% on room air, temperature of 97.4. General: This is a very pleasant 76-year-old female who is of thin body habitus. The patient is in no acute distress. Alert, awake, and oriented x3. HEENT: Head: Atraumatic, normocephalic. Eyes: Pupils are equal, round, and reactive to light and accommodation. Oropharynx clear. Mucosa moist. Neck: Supple. No JVD. No bruits bilaterally. Cardiovascular: Regular rate and rhythm. No murmur. Respiratory: Distant breath sounds at left lower base, otherwise clear. Abdomen: Soft, nontender. Bowel sounds are present in all 4 quadrants. Extremities: There is no edema. Pulses are +2 bilaterally. No clubbing or cyanosis. On evaluation of the skin, no ecchymotic areas or rashes noted. Neuro Evaluation: Speech clear. Cranial nerves II through XII are grossly intact. Motor strength is 5/5 bilaterally. DIAGNOSTIC STUDIES/LAB DATA: White blood cell count of 18.2, hemoglobin 9.2, hematocrit 27, and platelets 53. Sodium 139, potassium 3.4, chloride 105, carbon dioxide 27, BUN 24, creatinine 0.65. Liver function tests unremarkable. Troponin of 0.07. Brain natriuretic peptide was 524. TSH was slightly low at 0.26, but the patient's free T4 and free T3 were within normal limits at 0.94 and 2.5 respectively. Urinalysis was unremarkable. Digoxin level was 1.6 that was right after the patient took 0.25 mg of digoxin. The patient's chest x-ray was read by the radiologist as "persistent moderately large dependent left pleural effusion with proportion of atelectasis. No compelling evidence for pulmonary edema." The patient's EKG showed normal sinus rhythm with heart rate of 71 beats per minute with normal axis and no ST changes. ASSESSMENT AND PLAN: A 76-year-old female with history of paroxysmal atrial fibrillation, who presents after an episode of half an hour of atrial fibrillation which resolved after she decided to take an additional dose of digoxin. At this point, the patient's troponin level was mildly elevated, which is consistent with mild elevation in the past when she presented with atrial fibrillation. On 01/06/17, the patient's troponin peaked at 0.14. At this point, the patient is going to be continued to be observed in the emergency department and we will check troponin at approximately 4 to 5 hours after the initial blood draw. If her troponin continues to climb, the patient is going to be placed on overnight observation and if the troponin decreases, the patient is going to be discharged home with recommendations of no change in any medications and to follow up with Dr. Hernandez. The plan was discussed with Dr. Rutledge from the emergency department who agrees. TIME SPENT: Approximately 62 minutes were spent on consultation of this patient , more than half that time was spent [id number] with the patient doing the interview and physical exam. ADDENDUM: The patient's repeat troponin was exactly the same as previously at 0.07. At this point, the patient has no symptoms of palpitations, chest pain, or shortness of breath. She received 40 mEq of potassium to correct her hypokalemia with a potassium on presentation at 3.4. I discussed the case with Dr. Rutledge. The patient is agreeable to going home. I discussed with the patient possibility of vagal maneuvers for AFib cessation if it happens in the future. I told her that in the future if she is in atrial fibrillation to try vagal maneuvers to come in the ED if she develops shortness of breath, chest pain, or other worrisome symptoms. She also is requested to come to emergency department or call Dr. Hernandez's office if the palpitations recur and last for prolonged period of time. The patient is going to be discharged with 5 days worth of prescription for potassium chloride at 20 mEq daily and that was discussed with Dr. Rutledge. [id number]/[facility] #: [id number] A- [id number]/[facility] #: [id number] MTDD
--- NOTE | 2017-02-16 21:41 | CONS ---
CONSULTATION REPORT: * ADDENDUM: The patient's repeat troponin was exactly the same as previously at 0.07. At this point, the patient has no symptoms of palpitations, chest pain, or shortness of breath. She received 40 mEq of potassium to correct her hypokalemia with a potassium on presentation at 3.4. I discussed the case with Dr. Rutledge. The patient is agreeable to going home. I discussed with the patient possibility of vagal maneuvers for AFib cessation if it happens in the future. I told her that in the future if she is in atrial fibrillation to try vagal maneuvers to come in the ED if she develops shortness of breath, chest pain, or other worrisome symptoms. She also is requested to come to emergency department or call Dr. Hernandez's office if the palpitations recur and last for prolonged period of time. The patient is going to be discharged with 5 days worth of prescription for potassium chloride at 20 mEq daily and that was discussed with Dr. Rutledge. [id number]/[facility] #: [id number] [facility]ENTERWillis
--- NOTE | 2017-02-17 16:35 | ED ---
Jewel Angulo Alfonso, scribed for Glenn Rutledge MD on 02/16/17 at 1010 . Palpitations / Dysrhythmia - HPI Summary HPI Summary: This patient is a 76 year old F BIBA to [facility] with a chief complaint of palpitations since earlier today, soon after taking the final prednisone tablet in a course. Patient reports feeling herself going into A-Fib. She took an extra dose of Digoxin HOG DRIVER. The patient rates the pain 0/10 in severity. Symptoms alleviated by nothing. - History of Current Complaint Chief Complaint: EDDysrhythmPalp Time Seen by Provider: 02/16/17 10:03 Hx Obtained From: Patient Onset/Duration: Sudden Onset, Lasting Minutes, Still Present Timing: Constant Character: Irregular Alleviating: Nothing Associated Signs & Symptoms: Negative - Allergy/Home Medications Allergies/Adverse Reactions: Allergies Allergy/AdvReac Type Severity Reaction Status Date / Time Sulfa Antibiotics AdvReac See Comment Verified 10/17/16 11:37 "some chemo drugs" Allergy Unknown Uncoded 02/16/17 10:00 Reaction Details Home Medications: Home Medications Cyclophosphamide* 02/16/17 [History] DOXOrubicin* 02/16/17 [History] Digoxin TAB* [Lanoxin TAB*] 0.125 mg PO SEE INSTRUCTIONS 02/16/17 [History Confirmed 02/16/17] riTUXimab* 02/16/17 [History] vinCRIStine* 02/16/17 [History] PMH/Surg Hx/FS Hx/Imm Hx Endocrine/Hematology History: Denies: Hx Diabetes Cardiovascular History: Reports: Hx Atrial Fibrillation, Hx Hypercholesterolemia , Other Cardiovascular Problems/Disorders - moderate atheroschlerosis Denies: Hx Hypertension, Hx Pacemaker/ICD GI History: Reports: Hx Gastrointestinal Bleed, Other GI Disorders - abdominal mass, ascites History: Reports: Other Problems/Disorders - UTI's Denies: Hx Renal Disease Sensory History: Reports: Hx Contacts or Glasses Denies: Hx Hearing Aid Opthamlomology History: Reports: Hx Contacts or Glasses EENT History: Denies: Hx Deafness Neurological History: Comment Only: 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 FOLLICULAR LYMPHOMA Hx Chemotherapy: No - Surgical History Surgery Procedure, Year, and Place: appy as "a teenager" Infectious Disease History: No Infectious Disease History: Denies: Hx Clostridium Difficile, Hx Hepatitis, Hx Human Immunodeficiency Virus (HIV), Hx of Known/Suspected MRSA, Hx Shingles, Hx Tuberculosis, Hx Known/ Suspected VRE, Hx Known/Suspected VRSA, History Other Infectious Disease, Traveled Outside the [place] in Last 30 Days - Family History Known Family History: Negative: Cardiac Disease - denies family hx of, Diabetes - Social History Alcohol Use: Rare Hx Substance Use: Yes Substance Use Type: Reports: Marijuana Hx Tobacco Use: No Smoking Status (MU): Never Smoked Tobacco Review of Systems Negative: Fever Positive: Palpitations All Other Systems Reviewed And Are Negative: Yes Physical Exam - Summary Physical Exam Summary: VITAL SIGNS: Reviewed. GENERAL: Patient is an elderly and nourished female who is lying comfortable in the stretcher. Patient is not in any acute respiratory distress. HEAD AND FACE: No signs of trauma. No ecchymosis, hematomas or skull depressions. No sinus tenderness. EYES: PERRLA, EOMI x 2, No injected conjunctiva, no nystagmus. EARS: Hearing grossly intact. Ear canals and tympanic membranes are within normal limits. MOUTH: Oropharynx within normal limits. NECK: Supple, trachea is midline, no adenopathy, no JVD, no carotid bruit, no c- spine tenderness, neck with full ROM. CHEST: Symmetric, no tenderness at palpation LUNGS: Clear to auscultation bilaterally. No wheezing or crackles. CVS: Regular rate and rhythm, S1 and S2 present, no murmurs or gallops appreciated. ABDOMEN: Soft, non-tender. No signs of distention. No rebound no guarding, and no masses palpated. Bowel sounds are normal. EXTREMITIES: FROM in all major joints, no edema, no cyanosis or clubbing. NEURO: Alert and oriented x 3. No acute neurological deficits. Speech is normal and follows commands. SKIN: Dry and warm Triage Information Reviewed: Yes Vital Signs On Initial Exam: Initial Vitals Temp Pulse Resp BP Pulse Ox 97.4 F 74 16 114/65 98 02/16/17 09:55 02/16/17 09:55 02/16/17 09:55 02/16/17 09:55 02/16/17 09:55 Vital Signs Reviewed: Yes - [place] Coma Scale Coma Scale Total: 15 Diagnostics - Vital Signs Vital Signs Temp Pulse Resp BP Pulse Ox 02/16/17 09:55 97.4 F 74 16 114/65 98 - Laboratory Lab Results: Lab Results 02/16/17 02/16/17 02/16/17 Range/Units 10:10 10:15 10:15 WBC 18.2 H (3.5-10.8) 10^3/ul RBC 2.94 L (4.0-5.4) 10^6/ul Hgb 9.2 L (12.0-16.0) g/dl Hct 27 L (35-47) % MCV 93 (80-97) fL MCH 31 (27-31) pg MCHC 33 (31-36) g/dl RDW 16 H (10.5-15) % Plt Count 53 L (150-450) 10^3/ul MPV 9 (7.4-10.4) um3 Immature Gran % (Auto) 2 (0-9) % Absolute Neuts (auto) 18.2 H (1.5-7.7) 10^3/ul Absolute Lymphs (auto) 0 L (1.0-4.8) 10^3/ul Absolute Monos (auto) 0 (0-0.8) 10^3/ul Absolute Eos (auto) 0 (0-0.6) 10^3/ul Absolute Basos (auto) 0 (0-0.2) 10^3/ul Absolute Nucleated RBC Not Reportable Neutrophils % 98 H (38-83) % Band Neutrophils % 2 (0-8) % Normal RBC Morphology Not Reportable Hypochromasia 1+ Hem Pathologist Commnt Pending APTT (26.0-36.3) seconds Sodium 139 (133-145) mmol/L Potassium 3.4 L (3.5-5.0) mmol/L Chloride 105 (101-111) mmol/L Carbon Dioxide 27 (22-32) mmol/L Anion Gap 7 (2-11) mmol/L BUN 24 (6-24) mg/dL Creatinine 0.65 (0.51-0.95) mg/dL Est GFR ( Amer) 114.3 (>60) Est GFR (Non-Af Amer) 88.9 (>60) BUN/Creatinine Ratio 36.9 H (8-20) Glucose 111 H (70-100) mg/dL Lactic Acid (0.5-2.0) mmol/L Calcium 9.5 (8.6-10.3) mg/dL Magnesium 1.9 (1.9-2.7) mg/dL Total Bilirubin 0.60 (0.2-1.0) mg/dL AST 17 (13-39) U/L ALT 10 (7-52) U/L Alkaline Phosphatase 93 (34-104) U/L Total Creatine Kinase 12 (10-223) U/L Troponin I 0.07 H* (<0.04) ng/mL B-Natriuretic Peptide ( - 100) pg/mL Total Protein 5.7 L (6.4-8.9) g/dL Albumin 3.8 (3.2-5.2) g/dL Globulin 1.9 L (2-4) g/dL Albumin/Globulin Ratio 2.0 (1-3) TSH 0.26 L (0.34-5.60) mcIU/mL Free T4 0.94 (0.61-1.12) ng/dL Free T3 2.50 (2.5-3.9) pg/mL Urine Color Yellow Urine Appearance Clear Urine pH 7.0 (5-9) Ur Specific [place] 1.004 L (1.010-1.030) Urine Protein Negative (Negative) Urine Ketones Negative (Negative) Urine Blood 1+ H (Negative) Urine Nitrate Negative (Negative) Urine Bilirubin Negative (Negative) Urine Urobilinogen Negative (Negative) Ur Leukocyte Esterase Negative (Negative) Urine WBC (Auto) Absent (Absent) Urine RBC (Auto) Trace(0-2/hpf) (Absent) Urine Bacteria Absent (Absent) Urine Glucose Negative (Negative) Digoxin 1.6 (0.8-2.0) ng/ml 02/16/17 02/16/17 02/16/17 Range/Units 10:15 10:15 10:15 WBC (3.5-10.8) 10^3/ul RBC (4.0-5.4) 10^6/ul Hgb (12.0-16.0) g/dl Hct (35-47) % MCV (80-97) fL MCH (27-31) pg MCHC (31-36) g/dl RDW (10.5-15) % Plt Count (150-450) 10^3/ul MPV (7.4-10.4) um3 Immature Gran % (Auto) (0-9) % Absolute Neuts (auto) (1.5-7.7) 10^3/ul Absolute Lymphs (auto) (1.0-4.8) 10^3/ul Absolute Monos (auto) (0-0.8) 10^3/ul Absolute Eos (auto) (0-0.6) 10^3/ul Absolute Basos (auto) (0-0.2) 10^3/ul Absolute Nucleated RBC Neutrophils % (38-83) % Band Neutrophils % (0-8) % Normal RBC Morphology Hypochromasia Hem Pathologist Commnt APTT 30.9 (26.0-36.3) seconds Sodium (133-145) mmol/L Potassium (3.5-5.0) mmol/L Chloride (101-111) mmol/L Carbon Dioxide (22-32) mmol/L Anion Gap (2-11) mmol/L BUN (6-24) mg/dL Creatinine (0.51-0.95) mg/dL Est GFR ( Amer) (>60) Est GFR (Non-Af Amer) (>60) BUN/Creatinine Ratio (8-20) Glucose (70-100) mg/dL Lactic Acid 1.6 (0.5-2.0) mmol/L Calcium (8.6-10.3) mg/dL Magnesium (1.9-2.7) mg/dL Total Bilirubin (0.2-1.0) mg/dL AST (13-39) U/L ALT (7-52) U/L Alkaline Phosphatase (34-104) U/L Total Creatine Kinase (10-223) U/L Troponin I (<0.04) ng/mL B-Natriuretic Peptide 524 H ( - 100) pg/mL Total Protein (6.4-8.9) g/dL Albumin (3.2-5.2) g/dL Globulin (2-4) g/dL Albumin/Globulin Ratio (1-3) TSH (0.34-5.60) mcIU/mL Free T4 (0.61-1.12) ng/dL Free T3 (2.5-3.9) pg/mL Urine Color Urine Appearance Urine pH (5-9) Ur Specific [place] (1.010-1.030) Urine Protein (Negative) Urine Ketones (Negative) Urine Blood (Negative) Urine Nitrate (Negative) Urine Bilirubin (Negative) Urine Urobilinogen (Negative) Ur Leukocyte Esterase (Negative) Urine WBC (Auto) (Absent) Urine RBC (Auto) (Absent) Urine Bacteria (Absent) Urine Glucose (Negative) Digoxin (0.8-2.0) ng/ml 02/16/17 Range/Units 14:00 WBC (3.5-10.8) 10^3/ul RBC (4.0-5.4) 10^6/ul Hgb (12.0-16.0) g/dl Hct (35-47) % MCV (80-97) fL MCH (27-31) pg MCHC (31-36) g/dl RDW (10.5-15) % Plt Count (150-450) 10^3/ul MPV (7.4-10.4) um3 Immature Gran % (Auto) (0-9) % Absolute Neuts (auto) (1.5-7.7) 10^3/ul Absolute Lymphs (auto) (1.0-4.8) 10^3/ul Absolute Monos (auto) (0-0.8) 10^3/ul Absolute Eos (auto) (0-0.6) 10^3/ul Absolute Basos (auto) (0-0.2) 10^3/ul Absolute Nucleated RBC Neutrophils % (38-83) % Band Neutrophils % (0-8) % Normal RBC Morphology Hypochromasia Hem Pathologist Commnt APTT (26.0-36.3) seconds Sodium (133-145) mmol/L Potassium (3.5-5.0) mmol/L Chloride (101-111) mmol/L Carbon Dioxide (22-32) mmol/L Anion Gap (2-11) mmol/L BUN (6-24) mg/dL Creatinine (0.51-0.95) mg/dL Est GFR ( Amer) (>60) Est GFR (Non-Af Amer) (>60) BUN/Creatinine Ratio (8-20) Glucose (70-100) mg/dL Lactic Acid (0.5-2.0) mmol/L Calcium (8.6-10.3) mg/dL Magnesium (1.9-2.7) mg/dL Total Bilirubin (0.2-1.0) mg/dL AST (13-39) U/L ALT (7-52) U/L Alkaline Phosphatase (34-104) U/L Total Creatine Kinase (10-223) U/L Troponin I 0.07 H* (<0.04) ng/mL B-Natriuretic Peptide ( - 100) pg/mL Total Protein (6.4-8.9) g/dL Albumin (3.2-5.2) g/dL Globulin (2-4) g/dL Albumin/Globulin Ratio (1-3) TSH (0.34-5.60) mcIU/mL Free T4 (0.61-1.12) ng/dL Free T3 (2.5-3.9) pg/mL Urine Color Urine Appearance Urine pH (5-9) Ur Specific [place] (1.010-1.030) Urine Protein (Negative) Urine Ketones (Negative) Urine Blood (Negative) Urine Nitrate (Negative) Urine Bilirubin (Negative) Urine Urobilinogen (Negative) Ur Leukocyte Esterase (Negative) Urine WBC (Auto) (Absent) Urine RBC (Auto) (Absent) Urine Bacteria (Absent) Urine Glucose (Negative) Digoxin (0.8-2.0) ng/ml Result Diagrams: 02/16/17 10:15 02/16/17 10:15 Lab Statement: Any lab studies that have been ordered have been reviewed, and results considered in the medical decision making process. - Radiology CXR Radiology Interpretation Completed By: Radiologist - Persistent moderately large dependent LEFT pleural effusion with proportional atelectasis. No compelling evidence for pulmonary edema. ED physician has reviewed this radiology report and agrees. - EKG 1017 Cardiac Rate: NL EKG Rhythm: Sinus Rhythm - 71 BPM EKG Interpretation: No ST elevation EKG Comparison: No Significant Change - 01/07/17 Course/Dx - Course Assessment/Plan: This patient is a 76 year old F BIBA to [facility] with a chief complaint of palpitations since earlier today, soon after taking the final prednisone tablet in a course. Patient reports feeling herself going into A- Fib. She took an extra dose of Digoxin HOG DRIVER. The patient rates the pain 0/10 in severity. Symptoms alleviated by nothing. An EKG reveals Sinus Rhythm at [address] elevation and unchanged from 01/07/17. CXR reveals, per radiologist, Persistent moderately large dependent LEFT pleural effusion with proportional atelectasis. No compelling evidence for pulmonary edema. ED physician has reviewed this radiology report and agrees. Test results reveal WBC of 18.2, chronic anemia, potassium of 3.4 for which she was given potassium chloride, Troponin of 0.07, and BNP of 524. Urinalysis negative for UTI. In the ED course the patient has remained stable. Consulted Dr. Mendiola (hospitalist) at 1124 who will see the patient in the ED. Consulted Dr. Borden (turner machine operator) at 1127 regarding the patients case. After Dr. Mendiolas assessment, she decided to discharge the patient to home with PCP and turner machine operator follow up. I discussed the plan, as per Dr. Mendiola, with the patient and she is agreeable with this plan. The patient is hemodynamically stable, alert and oriented x3. - Diagnoses Differential Diagnosis/HQI/PQRI: Positive: AV Block, Hypokalemia, Hyperventilation, Paroxymal SVT, V-Tach Provider Diagnoses: Hypokalemia, Palpitation - Physician Notifications Discussed Care Of Patient With: Meenu Mendiola Time Discussed With Above Provider: 11:24 Instructed by Provider To: Other - Consulted Dr. Mendiola (hospitalist) at 1124 who will see the patient in the ED. Consulted Dr. Boredn (turner machine operator) at 1127 regarding the patients case. Discharge - Discharge Plan Condition: Stable Disposition: HOME Prescriptions: Potassium Chloride Microencaps [Klor-Con M20] 20 meq PO BID #10 tab Patient Education Materials: Palpitations (ED), Hypokalemia (ED) Referrals: Jud Holland MD [Primary Care Provider] - 3 Days Nicko Borden MD [Medical Doctor] - 3 Days Additional Instructions: RETURN TO THE EMERGENCY DEPARTMENT FOR CHANGING OR WORSENING SYMPTOMS. The documentation as recorded by the Jewel ely Alfonso accurately reflects the service I personally performed and the decisions made by me, Glenn Rutledge MD.
== END 2017-02-16 16:01 | disposition home or self-care (01) ==
LOC: ED 09:53
DX: R00.2 Palpitations (principal); E87.6 Hypokalemia; I48.91 Unspecified atrial fibrillation; E78.00 Pure hypercholesterolemia, unspecified; Z85.72 Personal history of non-Hodgkin lymphomas
CPT/HCPCS: 36415; 71020; 80053; 80162; 81003; 81015; 82550; 83605; 83735; 83880; 84439; 84443; 84481; 84484; 85025; 85060; 85730; 93005; 99283; A9270-GY

== ENCOUNTER 2017-02-19 12:38 | Inpatient (IN) | payer MEDICARE ==
[2017-02-19] MEDS ORDERED: NS 0.9% 1000 ML* 1,000 ML IV ONE ×2 (13:39→15:00)
--- NOTE | 2017-02-19 14:09 | RAD ---
HISTORY: Hypertension COMPARISONS: February 16, 2017 VIEWS: 1: frontal portable view of the chest at 1:55 PM FINDINGS: LINES AND TUBES: A right-sided chest port is noted with the tip overlying the superior vena cava. CARDIOMEDIASTINAL SILHOUETTE: The cardiomediastinal silhouette is normal for portable technique. PLEURA: There is a small left pleural effusion. LUNG PARENCHYMA: There is patchy alveolar opacification of the left lung base ABDOMEN: The upper abdomen is clear. There is no subphrenic gas. BONES AND SOFT TISSUES: No bone or soft tissue abnormalities are noted. IMPRESSION: SMALL LEFT PLEURAL EFFUSION WITH LEFT BASILAR ATELECTASIS VERSUS CONSOLIDATION
[2017-02-19 14:30] LABS: Hemoglobin 8.9 g/dl (12.0-16.0); Mean Platelet Volume 8 um3 (7.4-10.4); White Blood Count 0.3 10^3/ul (3.5-10.8)
[2017-02-19 14:33] LABS: Hematocrit 26 % (35-47); Mean Corpuscular HGB Conc 34 g/dl (31-36); Mean Corpuscular Hemoglobin 31 pg (27-31); Mean Corpuscular Volume 92 fL (80-97); Red Blood Count 2.84 10^6/ul (4.0-5.4); Red Cell Distribution Width 14 % (10.5-15)
[2017-02-19 14:36] LABS: Comments Flag Yes
[2017-02-19 14:45] LABS: Albumin 3.5 g/dL (3.2-5.2); BUN/Creatinine Ratio 25.3 (8-20); Calcium 8.8 mg/dL (8.6-10.3); EGFR African American 86.2 (>60); Potassium 3.7 mmol/L (3.5-5.0); Total Bilirubin 0.6 mg/dL (0.2-1.0); Total Protein 5.5 g/dL (6.4-8.9)
[2017-02-19 14:49] LABS: Troponin I 0.07 ng/mL (<0.04)
[2017-02-19] MEDS ORDERED: Levofloxacin 750 MG IVPREMIX(* 750 MG/150 ML BAG IVPB ONE (14:58)
[2017-02-19] MEDS ORDERED: Cefepime(*) 2 GM in NS 0.9% 50 ML* 50 ML IVPB ONE (14:58)
[2017-02-19 15:04] LABS: Urine Bacteria Absent (Absent); Urine Bilirubin Negative (Negative); Urine Glucose Negative (Negative); Urine Nitrite Negative (Negative)
[2017-02-19 15:27] LABS: Add Diff/Slide Review? Manual Diff Added
[2017-02-19 15:31] LABS: Add Path Review? YES; Eosinophils % 1 % (0-6); Hypochromasia 1+; Neutrophil % 17 % (38-83); Reactive Lymph % 9 % (0-6)
[2017-02-19] MEDS ORDERED: NS 0.9% 50 ML* 50 ML ONE (15:56)
[2017-02-19] MEDS ORDERED: Cefepime 2 GM in Dextrose(*) 2 GM/50 ML BAG IV ONE (16:00)
[2017-02-19 17:37] LABS: Digoxin 0.7 ng/ml (0.8-2.0)
[2017-02-19 19:29] LABS: Magnesium 1.7 mg/dL (1.9-2.7)
[2017-02-19] MEDS ORDERED: Acetaminophen TAB* 325 MG PO PRN ×2 (20:32→20:42)
[2017-02-19] MEDS ORDERED: Ondansetron INJ* 2 MG/ML VIAL IV PRN (20:42)
[2017-02-19] MEDS ORDERED: ceFAZolin 1 GM VIAL(*) 1 GM in NS 0.9% 50 ML* 50 ML IVPB SCH (21:00)
--- NOTE | 2017-02-19 21:44 | ED ---
Saleem Angulo Nilda, scribed for Jasen Carolina MD on 02/19/17 at 1531 . Complex/Multi-Sys Presentation - HPI Summary HPI Summary: This patient is a 76 year old F BIBA to [facility] with a chief complaint of constant dizziness and lightheadedness for the past few days. Last week pt had chemo therapy. Pt states she has been abnormally hypotensive for the past couple days with the following log of blood pressures: 02/19/17: 95/60 101bpm, 81/56 100bpm, 64/43 96bpm, 71/51 95bpm. 02/18/17: 103/68 95bpm, 104/65 103bpm. 02/17/17: 108/62 84bpm, 126/74 75bpm. Patient reports near syncope and painful sores on her bottom. Pt states she does not move around much. Patient denies CP, chest heaviness, headache, recent falls, fever, chills, diaphoresis, and SOB. Symptoms alleviated by nothing. Pt states she was recently prescribed antibiotics to assist her immune system but has not taken any yet. She also states she just finished a course of prednisone , which she believes may have contributed to her A-fib from her last hospital visit. PMHx lymphoma. - History Of Current Complaint Chief Complaint: EDGeneral Time Seen by Provider: 02/19/17 13:40 Hx Obtained From: Patient Onset/Duration: Sudden Onset, Lasting Days, Still Present Timing: Constant Alleviating Factor(s): nothing Associated Signs And Symptoms: Positive: Other - dizziness, lightheadedness, hypotensive, near syncope, painful sores on bottom. Related History: Other - Chemo therapy for Lymphoma - Allergies/Home Medications Allergies/Adverse Reactions: Allergies Allergy/AdvReac Type Severity Reaction Status Date / Time Sulfa Antibiotics AdvReac See Comment Verified 10/17/16 11:37 "some chemo drugs" Allergy Unknown Uncoded 02/16/17 10:00 Reaction Details Home Medications: Home Medications Acetaminophen TAB* [Tylenol TAB*] 650 mg PO Q4H PRN 02/19/17 [History Confirmed 02/19/17] Cephalexin CAP* [Keflex CAP*] 500 mg PO BID 02/19/17 [History Confirmed 02/19/17 ] Cyanocobalamin [Vitamin B-12] 1,000 mcg PO DAILY 02/19/17 [History Confirmed 02/24] Digoxin TAB* [Lanoxin TAB*] 0.125 mg PO SUTUTHSA 02/19/17 [History Confirmed 02/24] Digoxin TAB* [Lanoxin TAB*] 0.25 mg PO MOWEFR 02/19/17 [History Confirmed ] Levofloxacin TAB* [Levaquin TAB*] 500 mg PO DAILY 02/19/17 [History Confirmed ] Multivitamins/Minerals TAB* [Theragran/minerals TAB*] 1 tab PO DAILY 02/19/17 [ History Confirmed 02/19/17] Potassium Chlor TAB* [Klor Con ER TAB*] 20 meq PO BID 02/19/17 [History Confirmed 02/19/17] PMH/Surg Hx/FS Hx/Imm Hx Endocrine/Hematology History: Denies: Hx Diabetes Cardiovascular History: Reports: Hx Atrial Fibrillation, Hx Hypercholesterolemia , Other Cardiovascular Problems/Disorders - moderate atheroschlerosis Denies: Hx Hypertension, Hx Pacemaker/ICD GI History: Reports: Hx Gastrointestinal Bleed, Other GI Disorders - abdominal mass, ascites History: Reports: Other Problems/Disorders - UTI's Denies: Hx Renal Disease Sensory History: Reports: Hx Contacts or Glasses Denies: Hx Deafness, Hx Hearing Aid Opthamlomology History: Reports: Hx Contacts or Glasses Neurological History: Comment Only: 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 FOLLICULAR LYMPHOMA Hx Chemotherapy: No - Surgical History Surgery Procedure, Year, and Place: appy as "a teenager" Infectious Disease History: No Infectious Disease History: Denies: Hx Clostridium Difficile, Hx Hepatitis, Hx Human Immunodeficiency Virus (HIV), Hx of Known/Suspected MRSA, Hx Shingles, Hx Tuberculosis, Hx Known/ Suspected VRE, Hx Known/Suspected VRSA, History Other Infectious Disease, Traveled Outside the [place] in Last 30 Days - Family History Known Family History: Negative: Cardiac Disease - denies family hx of, Diabetes - Social History Alcohol Use: Rare Hx Substance Use: Yes Substance Use Type: Reports: Marijuana Hx Tobacco Use: No Smoking Status (MU): Never Smoked Tobacco Review of Systems Negative: Fever, Chills, Skin Diaphoresis Negative: Erythema Negative: Sore Throat Positive: Other - hypotensive; negative chest heaviness. Negative: Chest Pain Negative: Shortness Of Breath, Cough Negative: Abdominal Pain, Nausea Negative: dysuria, hematuria Negative: Myalgia, Edema Negative: Rash Neurological: Other - near syncope, lightheadedness, dizziness; negative recent falls Negative: Headache All Other Systems Reviewed And Are Negative: Yes Physical Exam - Summary Physical Exam Summary: Constitutional: Well-developed, Well-nourished, Alert. (-) Distressed Skin: Warm, Dry, Pale HENT: Normocephalic; Atraumatic; Dry Mucous Membranes Eyes: Conjunctiva normal Neck: Musculoskeletal ROM normal neck. (-) JVD, (-) Stridor, (-) Tracheal deviation Cardio: Rhythm regular, rate normal, Heart sounds normal; Intact distal pulses; The pedal pulses are 2+ and symmetric. Radial pulses are 2+ and symmetric. (-) Murmur Pulmonary/Chest wall: Effort normal. (-) Respiratory distress, (-) Wheezes, (-) Rales Abd: Soft, (-) Tenderness, (-) Distension, (-) Guarding, (-) Rebound Musculoskeletal: (-) Edema Lymph: (-) Cervical adenopathy Neuro: Alert, Oriented x3 Psych: Mood and affect Normal Triage Information Reviewed: Yes Vital Signs On Initial Exam: Initial Vitals Temp Pulse Resp BP Pulse Ox 97.8 F 102 14 70/53 100 02/19/17 12:43 02/19/17 12:43 02/19/17 12:43 02/19/17 12:43 02/19/17 12:43 Vital Signs Reviewed: Yes Procedures - Procedure Summary Procedure Summary: 2 separate procedures for Inscision and Drainage: First I&D: Had pustule with induration approx. 4mm on right buttock, purulent drainage, used 2ml of 1% Lido, both needle drainage and 11-blade scalpel. Second I&D: 2 cm bellow symphysis pubis, 3 mm pustule w/o induration. No significant drainaige. 11-blade superficially. Lanced with 25 gauge needle. 1 ml of 1% lido used. - Incision and Drainage Site: Right buttock Anesthesia: Lidocaine - 2 mL 1% Instrument(s): Scalpel - 11-blade, Needle Diagnostics - Vital Signs Vital Signs Temp Pulse Resp BP Pulse Ox 02/19/17 12:43 97.8 F 102 14 70/53 100 - Laboratory Lab Results: Lab Results 02/19/17 02/19/17 02/19/17 Range/Units 12:12 14:20 14:20 WBC 0.3 L (3.5-10.8) 10^3/ul RBC 2.84 L (4.0-5.4) 10^6/ul Hgb 8.9 L (12.0-16.0) g/dl Hct 26 L (35-47) % MCV 92 (80-97) fL MCH 31 (27-31) pg MCHC 34 (31-36) g/dl RDW 14 (10.5-15) % Plt Count 29 L (150-450) 10^3/ul MPV 8 (7.4-10.4) um3 Neut % (Auto) Pending Lymph % (Auto) Pending Bullock % (Auto) Pending Eos % (Auto) Pending Baso % (Auto) Pending Absolute Neuts (auto) Pending Absolute Lymphs (auto) Pending Absolute Monos (auto) Pending Absolute Eos (auto) Pending Absolute Basos (auto) Pending Absolute Nucleated RBC Pending Nucleated RBC % Pending INR (Anticoag Therapy) 0.99 (0.77-1.02) APTT 33.1 (26.0-36.3) seconds Sodium (133-145) mmol/L Potassium (3.5-5.0) mmol/L Chloride (101-111) mmol/L Carbon Dioxide (22-32) mmol/L Anion Gap (2-11) mmol/L BUN (6-24) mg/dL Creatinine (0.51-0.95) mg/dL Est GFR ( Amer) (>60) Est GFR (Non-Af Amer) (>60) BUN/Creatinine Ratio (8-20) Glucose (70-100) mg/dL Lactic Acid (0.5-2.0) mmol/L Calcium (8.6-10.3) mg/dL Total Bilirubin (0.2-1.0) mg/dL AST (13-39) U/L ALT (7-52) U/L Alkaline Phosphatase (34-104) U/L Troponin I (<0.04) ng/mL Total Protein (6.4-8.9) g/dL Albumin (3.2-5.2) g/dL Globulin (2-4) g/dL Albumin/Globulin Ratio (1-3) Urine Color Yellow Urine Appearance Clear Urine pH 7.0 (5-9) Ur Specific [place] 1.003 L (1.010-1.030) Urine Protein Negative (Negative) Urine Ketones Negative (Negative) Urine Blood 1+ H (Negative) Urine Nitrate Negative (Negative) Urine Bilirubin Negative (Negative) Urine Urobilinogen Negative (Negative) Ur Leukocyte Esterase Negative (Negative) Urine WBC (Auto) Absent (Absent) Urine RBC (Auto) Trace(0-2/hpf) (Absent) Urine Bacteria Absent (Absent) Urine Glucose Negative (Negative) 02/19/17 02/19/17 Range/Units 14:20 14:20 WBC (3.5-10.8) 10^3/ul RBC (4.0-5.4) 10^6/ul Hgb (12.0-16.0) g/dl Hct (35-47) % MCV (80-97) fL MCH (27-31) pg MCHC (31-36) g/dl RDW (10.5-15) % Plt Count (150-450) 10^3/ul MPV (7.4-10.4) um3 Neut % (Auto) Lymph % (Auto) Bullock % (Auto) Eos % (Auto) Baso % (Auto) Absolute Neuts (auto) Absolute Lymphs (auto) Absolute Monos (auto) Absolute Eos (auto) Absolute Basos (auto) Absolute Nucleated RBC Nucleated RBC % INR (Anticoag Therapy) (0.77-1.02) APTT (26.0-36.3) seconds Sodium 135 (133-145) mmol/L Potassium 3.7 (3.5-5.0) mmol/L Chloride 102 (101-111) mmol/L Carbon Dioxide 28 (22-32) mmol/L Anion Gap 5 (2-11) mmol/L BUN 21 (6-24) mg/dL Creatinine 0.83 (0.51-0.95) mg/dL Est GFR ( Amer) 86.2 (>60) Est GFR (Non-Af Amer) 67.0 (>60) BUN/Creatinine Ratio 25.3 H (8-20) Glucose 88 (70-100) mg/dL Lactic Acid 1.0 (0.5-2.0) mmol/L Calcium 8.8 (8.6-10.3) mg/dL Total Bilirubin 0.60 (0.2-1.0) mg/dL AST 11 L (13-39) U/L ALT 10 (7-52) U/L Alkaline Phosphatase 57 (34-104) U/L Troponin I 0.07 H* (<0.04) ng/mL Total Protein 5.5 L (6.4-8.9) g/dL Albumin 3.5 (3.2-5.2) g/dL Globulin 2.0 (2-4) g/dL Albumin/Globulin Ratio 1.8 (1-3) Urine Color Urine Appearance Urine pH (5-9) Ur Specific [place] (1.010-1.030) Urine Protein (Negative) Urine Ketones (Negative) Urine Blood (Negative) Urine Nitrate (Negative) Urine Bilirubin (Negative) Urine Urobilinogen (Negative) Ur Leukocyte Esterase (Negative) Urine WBC (Auto) (Absent) Urine RBC (Auto) (Absent) Urine Bacteria (Absent) Urine Glucose (Negative) Result Diagrams: 02/19/17 14:20 02/19/17 14:20 Lab Statement: Any lab studies that have been ordered have been reviewed, and results considered in the medical decision making process. - Radiology CXR Radiology Interpretation Completed By: Radiologist - CXR, per radiologist, reveals small left pleural effusion with left basilar a telectasis versus consolidation. Dr. Carolina has reviewed this radiology report. - EKG 1400 Cardiac Rate: Other Rate EKG Rhythm: Sinus Rhythm - 86bpm EKG Interpretation: paced, no STEMI. Complex Multi-Symp Course/Dx Assessment/Plan: This patient is a 76 year old F BIBA to [facility] with a chief complaint of constant dizziness and lightheadedness for the past few days. Last week pt had chemo therapy. Pt states she has been abnormally hypotensive for the past couple days with the following log of blood pressures: 02/19/17: 95/ 60 101bpm, 81/56 100bpm, 64/43 96bpm, 71/51 95bpm. 02/18/17: 103/68 95bpm, 104/ 65 103bpm. 02/17/17: 108/62 84bpm, 126/74 75bpm. Patient reports near syncope and painful sores on her bottocks. Pt states she does not move around much. Patient denies CP, chest heaviness, headache, recent falls, fever, chills, diaphoresis, and SOB. Symptoms alleviated by nothing. Pt states she was recently prescribed antibiotics to assist her immune system but has not taken any yet. She also states she just finished a course of prednisone, which she believes may have contributed to her A-fib from her last hospital visit. PMHx lymphoma. Pt requested we utilize her peripheral veins rather than her port. Pending labs, EKG and CXR. Blood work is without significant abnormalities except trop 0.07, Neuts 0.1. An EKG reveals 86bpm, paced, no STEMI. CXR, per radiologist, reveals small left pleural effusion with left basilar a telectasis versus consolidation. Dr. Carolina has reviewed this radiology report. 1713 Dr Allen (Oncologist) recommends admission. 1725 Dr Tyler (Hospitalist) agrees to admit pt. Pt is stable and will be admitted with Dx of neutropenia, pustules, sepsis, and hypotension. Pt understands and is agreeable with this plan. 90 mins CCT - Diagnoses Provider Diagnoses: Neutropenia, Pustule, Sepsis, Hypotension - Physician Notifications Discussed Care Of Patient With: Raz Tyler - Hospitalist Time Discussed With Above Provider: 17:25 Instructed by Provider To: Admit As Inpatient - Critical Care Time Critical Care Time: 75-104 min - 90 mins Discharge - Discharge Plan Condition: Guarded Disposition: ADMITTED TO [facility] documentation as recorded by the Saleem ely Nilda accurately reflects the service I personally performed and the decisions made by , Jasen Carolina MD.
[2017-02-19] MEDS: ceFAZolin 1 GM in Dextrose (*) 1 GM/50 ML BAG IVPB SCH (22:26)
[2017-02-19] MEDS: NS 0.9% 1000 ML* 1,000 ML IV SCH (22:26)
[2017-02-19] MEDS ORDERED: Magnesium Sulfate 2 GM IV* 2 GM/50 ML BAG IVPB ONE (22:27)
[2017-02-19] MEDS: Digoxin TAB* 0.125 MG PO SCH (22:31)
[2017-02-19] MEDS: Potassium Chlor TAB* 20 MEQ TAB.ER PO SCH (22:42)
--- NOTE | 2017-02-20 00:28 | HP ---
CC: Dr. Holland; Dr. Vanegas at [facility] * HISTORY AND PHYSICAL: DATE OF ADMISSION: 02/19/17 PROVIDER: Amber Jones NP PRIMARY CARE PROVIDER: Dr. Holland. ONCOLOGIST: Dr. Vanegas at [facility]. ATTENDING PHYSICIAN WHILE IN THE HOSPITAL: Dr. Charlotte Adler * (report dictated by Amber Jones NP). CHIEF COMPLAINT: Weakness, low blood pressure. HISTORY OF PRESENT ILLNESS: Ms. Chery is a 76-year-old female that presented to the emergency room today for weakness. She has a diagnosis of follicular lymphoma as of September of 2016. She began R-CHOP on 10/29/16. The patient has just completed her 6 rounds of R-CHOP, which she says is her last round. She states that she was admitted to [facility] on February 11 and , which she received chemo and then she states she received 4 days of steroid after, which was the rest of her therapy. She completed that on February 15. The patient states over the last 2 to 3 days she has been feeling very tired and weak and she states that she does feel faint with standing, but she denies any loss of consciousness. She denies any cough or shortness of breath. She stated this morning that she felt incredibly weak and noted that her blood pressure fell low. She felt that her weakness was due to the decreased intake of fluids over the past few days. She reports that she has had no fever, no chills, no nausea , no vomiting, no diarrhea. She does report that she had 2 small swollen areas , one on her suprapubic area and one on her right inner buttocks that were sore. She states that she was lying up on her side because it was sore to sit on her buttocks, those areas were lanced in the ER and cultures were sent. PAST MEDICAL HISTORY: 1. Follicular lymphoma. 2. 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 3. History of prediabetes. 4. History of hypertension, off antihypertensive since May of 2016. 5. Hiatal hernia. 6. Atrial fibrillation. PAST SURGICAL HISTORY: 1. D and Cs. 2. Appendectomy. 3. Tonsillectomy. 4. Retroperitoneal mass biopsy. MEDICATIONS: 1. Levaquin 500 mg daily, which she has not started yet. 2. Digoxin 0.125 mg alternating with 0.25 mg p.o. daily. 3. Multivitamin. 4. Vitamin B12 1000 mcg p.o. daily. ALLERGIES: She reports some allergy to SULFA DRUG, LATEX. She is sensitive to tape, Rituxan, and diphenhydramine. FAMILY HISTORY: Mother is living at the age of 95. She has a history of CVA. Dad's history is unknown as the patient is adopted. SOCIAL HISTORY: The patient is a lifelong nonsmoker. She does drink alcohol occasionally. She is still working. 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 She is . She has 4 children. She indicates that her son, Edwin Chery is her healthcare proxy and his phone number is [phone]. REVIEW OF SYSTEMS: The patient denies any fever, chills, or vomiting. She admits to having mild nausea. Cardiac: She denies chest pain. She denies any edema. Respiratory: No cough. No hemoptysis. She does state that she did have an episode of shortness of breath when she felt faint earlier today. GI: No nausea, no vomiting, no diarrhea, no abdominal pain. : No gross hematuria. No dysuria. Neuro: No focal weakness or sensory loss. Eyes: No visual complaints. ENT: She does report that she has occasional difficulty swallowing large pills. Musculoskeletal: Denies any aches or pains. Skin: She does state that she has a small lesion in the suprapubic area in right inner buttocks. Those lesions were lanced in the emergency room today. Psychiatric: She denies any depression or anxiety. PHYSICAL EXAMINATION GENERAL: The patient is well-developed, elderly female, lying upright on the stretcher. She is in no acute distress. VITAL SIGNS: Blood pressure 97/51, heart rate is 100, respirations are 16, O2 saturation is 96% on room air. She was hypotensive in the 70s. She was 70/53 on arrival to the ER today. Her temperature was 97.8 on arrival to the ER. HEENT: The patient is bald. Head is normocephalic, atraumatic. Pupils are equal and reactive to light. Extraocular eye movements are intact. Oropharynx is clear. Oral mucosa is mildly dry. PULMONARY: Lung sounds are clear throughout with diminished sounds in bilateral bases. There are no rales or rhonchi. CARDIAC: Normal S1, S2. Rate is regular rhythm at this time. There is no lower extremity edema. ABDOMEN: Flat and soft. Bowel sounds are present x4. It is nontender. MUSCULOSKELETAL: There is no cyanosis or clubbing of the digits. There is full range of motion with all four extremities. NEUROLOGIC: Cranial nerves II through XII are grossly intact. Strength is 5/5 , symmetric in both upper and lower extremities bilaterally. PSYCH: The patient is alert. She is oriented x3. She appears to be appropriate. SKIN: Warm and dry. There is a small lesion that is white in the suprapubic area with a small lanced incision in the center of the lesion. There is also a lesion on the right inner buttocks the same appearance, mild erythema around the edges of the lesion white with a lanced area in the center of the lesion. The lesion sizes are approximately half a centimeter in diameter. DIAGNOSTIC STUDIES AND LABORATORY DATA: WBCs are 0.3, RBCs are 2.84, hemoglobin is 8.9, hematocrit is 26, platelet count is 29, absolute neutrophils are 0.1, absolute lymphs are 0.2, neutrophils are 17, lymphocytes are 62, reactive lymphs are 9. INR is 0.99. Sodium 135, potassium 3.7, chloride 102, carbon dioxide is 28, anion gap is 5, BUN is 21, creatinine is 0.83. Glucose is 88, lactic acid is 1.5 at 1740, calcium is 8.8, magnesium is 1.7. ASTs are 11, ALTs are 10, troponin is 0.07. Her troponin on 02/16 was also 0.07 x2. Urine specific gravity was 1.003. Urine protein was negative. Ketones were negative. Urine blood was +1. Urine nitrites are negative. Bilirubin was negative. Urobilinogen is negative. Urine leukocyte esterase is negative. Urine wbc's were absent, rbc's were trace, urine bacteria was absent, and urine glucose was also negative. Digoxin level today was 0.7. EKG, normal sinus rhythm, rate of 86, no ST-T changes noted. Chest x-ray was interpreted by the radiologist, impression was small left pleural effusion with left basilar atelectasis versus consolidation. ASSESSMENT AND PLAN: Mrs. Chery is a 76-year-old female with a history of follicular lymphoma, status post 6 cycles of R-CHOP therapy, who presents to the emergency room with complaints of severe weakness and low blood pressure. She will be admitted to the hospital for: 1. Neutropenia. We will repeat her CBC in the morning and she will be placed on neutropenic precautions. 2. Weakness. We will give her gentle hydration with normal saline. 3. Anemia. We will repeat her CBC in the morning and trend her H and H. 4. Thrombocytopenia. Her platelet count is 29,000. We will continue to monitor her CBC. Suspect folliculitis. We will start her on Ancef 1 g q.8 hours and monitor the lesions for increased infection. We will also monitor her for a fever. 5. Hypomagnesium. She will get magnesium 2 g IV for replacement and we will recheck her magnesium level in the a.m. 6. FEN. She will be placed on normal saline IV fluids. She will also get a regular diet. 7. Code status. She is a full code. 8. DVT prophylaxis. She is at high risk for DVT. We will hold chemical prophylaxis at this time due to her platelet count of 29. I will encourage her to ambulate and we will apply TEDs. TIME SPENT: Time spent on this admission was 60 minutes, greater than half the time was spent [id number] with the patient obtaining history and physical, the other half of the time was spent going over her plan of care and implementing the plan of care. I have discussed this plan with my attending, Dr. Charlotte Adler and she is in agreement. AMBER JONES, YOSVANY [id number]/[facility] #: [id number] ANAHI
[2017-02-20] MEDS: ceFAZolin 1 GM in Dextrose (*) 1 GM/50 ML BAG IVPB SCH (05:55)
[2017-02-20 06:30] LABS: Hemoglobin 8.3 g/dl (12.0-16.0)
[2017-02-20 06:33] LABS: Hematocrit 24 % (35-47); Mean Corpuscular HGB Conc 35 g/dl (31-36); Mean Corpuscular Hemoglobin 32 pg (27-31); Mean Corpuscular Volume 92 fL (80-97); Mean Platelet Volume 9 um3 (7.4-10.4); Red Cell Distribution Width 14 % (10.5-15)
[2017-02-20 06:41] LABS: Comments Flag Yes
[2017-02-20 06:42] LABS: White Blood Count 0.3 10^3/ul (3.5-10.8)
[2017-02-20 06:43] LABS: Add Diff/Slide Review? Slide Review Added
[2017-02-20 06:46] LABS: BUN/Creatinine Ratio 22.2 (8-20); Calcium 8.9 mg/dL (8.6-10.3); EGFR African American 101.6 (>60); Potassium 4.1 mmol/L (3.5-5.0)
[2017-02-20] MEDS: NS 0.9% 1000 ML* 1,000 ML IV SCH (10:19)
[2017-02-20] MEDS: Cyanocobalamin TAB* 500 MCG PO SCH (10:20)
[2017-02-20] MEDS: Multivitamins/Minerals TAB PO SCH (10:21)
[2017-02-20] MEDS: Potassium Chlor TAB* 20 MEQ TAB.ER PO SCH ×2 (10:21→20:18)
[2017-02-20] MEDS: Cefepime 2 GM in Dextrose(*) 2 GM/50 ML BAG IV SCH ×2 (10:36→17:52)
--- NOTE | 2017-02-20 14:50 | PN ---
Subjective Date of Service: 02/20/17 Interval History: HOSPITALIST PROGRESS NOTE Patient seen and examined at bedside. She feels better today. Areas of folliculitis are not painful or swollen. Still feels weak, but overall feels she's improving. Family History: Unchanged from Admission Social History: Unchanged from Admission Past Medical History: Unchanged from Admission Objective Active Medications: Acetaminophen (Tylenol Tab*) 650 mg PO Q4H PRN PRN Reason: PAIN Cyanocobalamin (Vitamin B12 Tab*) 1,000 mcg PO DAILY [facility] Last Admin: 02/20/17 10:20 Dose: 1,000 mcg Digoxin (Lanoxin Tab*) 0.125 mg PO [id number]@1700 [facility] Last Admin: 02/19/17 22:31 Dose: 0.125 mg Digoxin (Lanoxin Tab*) 0.25 mg PO [email or web address]@1700 [facility] Sodium Chloride (Ns 0.9% 1000 Ml*) 1,000 mls @ 100 mls/hr IV PER RATE [facility] Stop: 02/21/17 06:44 Last Admin: 02/20/17 10:19 Dose: 100 mls/hr Cefepime HCl (Maxipime 2 Gm In Dextrose Duplex (*)) 2 gm in 50 mls @ 100 mls/ hr IV Q8H [facility] Last Admin: 02/20/17 10:36 Dose: 100 mls/hr Multivitamins/Minerals (Theragran/Minerals Tab*) 1 tab PO DAILY [facility] Last Admin: 02/20/17 10:21 Dose: 1 tab Ondansetron HCl (Zofran Inj*) 4 mg IV Q4H PRN PRN Reason: NAUSEA/VOMITING Potassium Chloride (Klor Con Er Tab*) 20 meq PO BID [facility] Last Admin: 02/20/17 10:21 Dose: 20 meq Vital Signs - 8 hr 02/20/17 02/20/17 07:47 08:00 Temperature 98.4 F Pulse Rate 117 Respiratory 14 14 Rate Blood Pressure 107/56 (mmHg) O2 Sat by Pulse 94 Oximetry Oxygen Devices in Use Now: None Appearance: Pleasant elderly lady sitting up in bed in [facility]. Eyes: No Scleral Icterus Ears/Nose/Mouth/Throat: Mucous Membranes Moist Neck: Trachea Midline Respiratory: Symmetrical Chest Expansion and Respiratory Effort, Clear to Auscultation Cardiovascular: RRR - Normal S1 and S2 Abdominal: NL Sounds; No Tenderness; No Distention Skin: - - Small area of folliculitis on right buttock and right labia majora, clean, with no drainage or erythema Neurological: Alert and Oriented x 3, NL Muscle Strength and Tone Result Diagrams: 02/20/17 05:50 02/20/17 05:50 Assess/Plan/Problems-Billing Assessment: Mrs. Chery is a 76yo F with PMH of follicular lymphoma s/p chemo (last treatment was last week), glucose intolerance, HTN, Afib, who presented to ED with c/o fever, weakness, found to have significant neutropenia. - Patient Problems (1) Neutropenic fever SNOMED Code(s): 084514382 Comment: - Patient remains afebrile here, but had subjective fever at home. - WBC 0.3 and ANC is 0. - Continue Cefepime and monitor cell counts. - D/w Oncology - her pancytopenia should peak 10-14 days after chemo (around now ) and she already received Neulasta, so at this point we just monitor her cell counts. - No signs of mucositis at this time. - Continue neutropenic precautions. (2) Thrombocytopenia Comment: - Platelets 29k, but no signs of bleeding. - Continue to monitor. (3) Folliculitis Comment: - Seems to be improving - will continue to monitor. (4) Atrial fibrillation Comment: - Continue digoxin. - Hypomagnesemia corrected. (5) DVT prophylaxis Comment: - Pharmacological prophylaxis contraindicated in the setting of severe thrombocytopenia. - SCDs. (6) Full code status Status and Disposition: Inpatient.
[2017-02-20] MEDS: Digoxin TAB* 0.125 MG PO SCH (17:54)
[2017-02-21] MEDS: Cefepime 2 GM in Dextrose(*) 2 GM/50 ML BAG IV SCH ×3 (01:28→17:39)
[2017-02-21] MEDS: Cyanocobalamin TAB* 500 MCG PO SCH (08:52)
[2017-02-21] MEDS: Potassium Chlor TAB* 20 MEQ TAB.ER PO SCH ×2 (08:52→20:05)
[2017-02-21] MEDS: Multivitamins/Minerals TAB PO SCH (08:52)
[2017-02-21 09:30] LABS: Hemoglobin 9.6 g/dl (12.0-16.0); White Blood Count 0.9 10^3/ul (3.5-10.8)
[2017-02-21 09:32] LABS: Hematocrit 29 % (35-47); Mean Corpuscular HGB Conc 34 g/dl (31-36); Mean Corpuscular Hemoglobin 31 pg (27-31); Mean Corpuscular Volume 93 fL (80-97); Mean Platelet Volume 8 um3 (7.4-10.4); Red Blood Count 3.12 10^6/ul (4.0-5.4); Red Cell Distribution Width 14 % (10.5-15)
[2017-02-21 09:41] LABS: Comments Flag Yes
[2017-02-21 09:42] LABS: Add Diff/Slide Review? Slide Review Added
[2017-02-21 10:24] LABS: Immature Granulocytes 15 % (0-9); Neutrophil % 44 % (38-83); Reactive Lymph % 1 % (0-6)
[2017-02-21 10:25] LABS: Hypochromasia 1+
--- NOTE | 2017-02-21 15:48 | PN ---
Subjective Date of Service: 02/21/17 Interval History: HOSPITALIST PROGRESS NOTE Patient seen and examined at bedside. She is in good spirits today. States she has more energy and doesn't feel as lightheaded when she stands up. Appetite is improving, tolerating diet. Family History: Unchanged from Admission Social History: Unchanged from Admission Past Medical History: Unchanged from Admission Objective Active Medications: Acetaminophen (Tylenol Tab*) 650 mg PO Q4H PRN PRN Reason: PAIN Cyanocobalamin (Vitamin B12 Tab*) 1,000 mcg PO DAILY [facility] Last Admin: 02/21/17 08:52 Dose: 1,000 mcg Digoxin (Lanoxin Tab*) 0.125 mg PO SuTuThSa@1700 [facility] Last Admin: 02/19/17 22:31 Dose: 0.125 mg Digoxin (Lanoxin Tab*) 0.25 mg PO MoWeFr@1700 [facility] Last Admin: 02/20/17 17:54 Dose: 0.25 mg Cefepime HCl (Maxipime 2 Gm In Dextrose Duplex (*)) 2 gm in 50 mls @ 100 mls/ hr IV Q8H [facility] Last Admin: 02/21/17 08:52 Dose: 100 mls/hr Multivitamins/Minerals (Theragran/Minerals Tab*) 1 tab PO DAILY [facility] Last Admin: 02/21/17 08:52 Dose: 1 tab Ondansetron HCl (Zofran Inj*) 4 mg IV Q4H PRN PRN Reason: NAUSEA/VOMITING Potassium Chloride (Klor Con Er Tab*) 20 meq PO BID [facility] Last Admin: 02/21/17 08:52 Dose: 20 meq Valacyclovir HCl (Valtrex 1 Gm(*)) 1 gm PO BID [facility] PRN Reason: Protocol Vital Signs - 8 hr 02/21/17 08:00 Pulse Rate 87 Respiratory 18 Rate Blood Pressure 108/66 (mmHg) O2 Sat by Pulse 98 Oximetry Oxygen Devices in Use Now: None Appearance: Pleasant frail lady lying in bed in NAD. Eyes: No Scleral Icterus Ears/Nose/Mouth/Throat: Mucous Membranes Moist Neck: Trachea Midline Respiratory: Symmetrical Chest Expansion and Respiratory Effort, Clear to Auscultation Cardiovascular: RRR - Normal S1 and S2 Abdominal: NL Sounds; No Tenderness; No Distention Skin: - - Genital lesions today are more vesicular in nature Neurological: Alert and Oriented x 3, NL Muscle Strength and Tone Result Diagrams: 02/21/17 09:18 02/20/17 05:50 Assess/Plan/Problems-Billing Assessment: Mrs. Chery is a 76yo F with PMH of follicular lymphoma s/p chemo (last treatment was last week), glucose intolerance, HTN, Afib, who presented to ED with c/o fever, weakness, found to have significant neutropenia. - Patient Problems (1) Neutropenic fever SNOMED Code(s): 546434968 Comment: - Patient remains afebrile here, but had subjective fever at home. - WBC 0.9 and ANC is 0.5. - Continue Cefepime and monitor cell counts. - D/w Oncology - her pancytopenia should peak 10-14 days after chemo (around now ) and she already received Neulasta, so at this point we just monitor her cell counts. - No signs of mucositis at this time. - Continue neutropenic precautions. (2) Thrombocytopenia Comment: - Platelets up to 30k today, no signs of bleeding. - Continue to monitor. (3) Folliculitis Comment: - Her lesions today are vesicular in nature, suggestive of herpes simplex. - Check HSV PCR and start Valacyclovir. (4) Atrial fibrillation Comment: - Continue digoxin. - Hypomagnesemia corrected. (5) DVT prophylaxis Comment: - Pharmacological prophylaxis contraindicated in the setting of severe thrombocytopenia. - SCDs. (6) Full code status Status and Disposition: Inpatient.
[2017-02-21] MEDS: Digoxin TAB* 0.125 MG PO SCH (17:40)
[2017-02-21] MEDS: ValACYclovir (*) 1 GM TAB PO SCH (20:05)
[2017-02-22] MEDS: Cefepime 2 GM in Dextrose(*) 2 GM/50 ML BAG IV SCH ×3 (02:21→17:07)
[2017-02-22 07:36] LABS: Hematocrit 28 % (35-47); Hemoglobin 9.4 g/dl (12.0-16.0); Mean Corpuscular HGB Conc 34 g/dl (31-36); Mean Corpuscular Hemoglobin 31 pg (27-31); Mean Corpuscular Volume 92 fL (80-97); Mean Platelet Volume 9 um3 (7.4-10.4); Red Cell Distribution Width 14 % (10.5-15)
[2017-02-22 07:37] LABS: Comments Flag Yes
[2017-02-22 07:38] LABS: Add Diff/Slide Review? Manual Diff Added
[2017-02-22 08:29] LABS: Eosinophils % 2 % (0-6); Immature Granulocytes 4 % (0-9); Neutrophil % 53 % (38-83); RBC Morphology Normal (Normal); Reactive Lymph % 2 % (0-6)
[2017-02-22 08:33] LABS: Add Path Review? YES
[2017-02-22] MEDS: Potassium Chlor TAB* 20 MEQ TAB.ER PO SCH ×2 (08:41→23:41)
[2017-02-22] MEDS: Cyanocobalamin TAB* 500 MCG PO SCH (08:41)
[2017-02-22] MEDS: Multivitamins/Minerals TAB PO SCH (08:41)
[2017-02-22] MEDS: ValACYclovir (*) 1 GM TAB PO SCH ×2 (08:43→23:41)
--- NOTE | 2017-02-22 09:48 | PN ---
Subjective Date of Service: 02/22/17 Interval History: HOSPITALIST PROGRESS NOTE Patient seen and examined at bedside. She feels better today, has a little bit more energy. No lightheadedness when using bedside commode. Reluctant to work with PT, but willing to try. Family History: Unchanged from Admission Social History: Unchanged from Admission Past Medical History: Unchanged from Admission Objective Active Medications: Acetaminophen (Tylenol Tab*) 650 mg PO Q4H PRN PRN Reason: PAIN Cyanocobalamin (Vitamin B12 Tab*) 1,000 mcg PO DAILY [facility] Last Admin: 02/22/17 08:41 Dose: 1,000 mcg Digoxin (Lanoxin Tab*) 0.125 mg PO SuTuThSa@1700 [facility] Last Admin: 02/21/17 17:40 Dose: 0.125 mg Digoxin (Lanoxin Tab*) 0.25 mg PO MoWeFr@1700 [facility] Last Admin: 02/20/17 17:54 Dose: 0.25 mg Heparin Sodium (Porcine) (Heparin Flush Port (Ivad)) 5 ml FLUSH DAILY PRN; Protocol PRN Reason: Per Protocol Last Admin: 02/21/17 18:59 Dose: 5 ml Cefepime HCl (Maxipime 2 Gm In Dextrose Duplex (*)) 2 gm in 50 mls @ 100 mls/ hr IV Q8H [facility] Last Admin: 02/22/17 08:43 Dose: 100 mls/hr Multivitamins/Minerals (Theragran/Minerals Tab*) 1 tab PO DAILY [facility] Last Admin: 02/22/17 08:41 Dose: 1 tab Ondansetron HCl (Zofran Inj*) 4 mg IV Q4H PRN PRN Reason: NAUSEA/VOMITING Potassium Chloride (Klor Con Er Tab*) 20 meq PO BID [facility] Last Admin: 02/22/17 08:41 Dose: 20 meq Valacyclovir HCl (Valtrex 1 Gm(*)) 1 gm PO BID [facility] PRN Reason: Protocol Last Admin: 02/22/17 08:43 Dose: 1 gm Vital Signs - 8 hr 02/22/17 02/22/17 02/22/17 03:11 08:00 08:13 Pulse Rate 96 89 Respiratory 18 16 17 Rate Blood Pressure 103/60 93/68 (mmHg) O2 Sat by Pulse 97 98 98 Oximetry Oxygen Devices in Use Now: None Appearance: Pleasant lady sitting up in NAD, in good spirits today. Eyes: No Scleral Icterus Ears/Nose/Mouth/Throat: Mucous Membranes Moist Neck: Trachea Midline Respiratory: Symmetrical Chest Expansion and Respiratory Effort, Clear to Auscultation Cardiovascular: RRR - Normal S1 and S2 Extremities: No Edema Neurological: Alert and Oriented x 3, NL Muscle Strength and Tone Result Diagrams: 02/22/17 07:20 02/20/17 05:50 Assess/Plan/Problems-Billing Assessment: Mrs. Chery is a 76yo F with PMH of follicular lymphoma s/p chemo (last treatment was last week), glucose intolerance, HTN, Afib, who presented to ED with c/o fever, weakness, found to have significant neutropenia. - Patient Problems (1) Neutropenic fever SNOMED Code(s): 439984686 Comment: - Patient remains afebrile here, but had subjective fever at home. - WBC 2.0 and ANC is 1.1. - Continue Cefepime and monitor cell counts. - D/w Oncology - her pancytopenia should peak 10-14 days after chemo (around now ) and she already received Neulasta, so at this point we just monitor her cell counts. - No signs of mucositis at this time. (2) Thrombocytopenia Comment: - Platelets up to 42k today, no signs of bleeding. - Continue to monitor. (3) Atrial fibrillation Comment: - Continue digoxin. - Hypomagnesemia corrected. (4) Herpes genitalis Comment: - Follow HSV PCR and continue Valacyclovir. (5) DVT prophylaxis Comment: - Pharmacological prophylaxis contraindicated in the setting of severe thrombocytopenia. - SCDs. (6) Full code status Status and Disposition: Inpatient. Encouraged to work with PT so we can plan her discharge.
[2017-02-22] MEDS: Digoxin TAB* 0.125 MG PO SCH (17:07)
[2017-02-22 20:15] LABS: HS/VZ Source GENITAL LESION; Varicella Zoster Result Negative (Negative); Varicella Zoster Source GENITAL LESION
[2017-02-23] MEDS: Cefepime 2 GM in Dextrose(*) 2 GM/50 ML BAG IV SCH ×3 (02:50→17:09)
[2017-02-23] MEDS: ValACYclovir (*) 1 GM TAB PO SCH ×2 (09:39→21:27)
[2017-02-23] MEDS: Cyanocobalamin TAB* 500 MCG PO SCH (09:39)
[2017-02-23] MEDS: Multivitamins/Minerals TAB PO SCH (09:39)
[2017-02-23] MEDS: Potassium Chlor TAB* 20 MEQ TAB.ER PO SCH (09:39)
[2017-02-23 10:17] LABS: Hematocrit 29 % (35-47); Hemoglobin 9.8 g/dl (12.0-16.0); Mean Corpuscular HGB Conc 34 g/dl (31-36); Mean Corpuscular Hemoglobin 31 pg (27-31); Mean Corpuscular Volume 92 fL (80-97); Mean Platelet Volume 8 um3 (7.4-10.4); Red Blood Count 3.12 10^6/ul (4.0-5.4); Red Cell Distribution Width 14 % (10.5-15); White Blood Count 3.9 10^3/ul (3.5-10.8)
[2017-02-23 10:18] LABS: Comments Flag Yes
[2017-02-23] MEDS: Digoxin TAB* 0.125 MG PO SCH (17:13)
--- NOTE | 2017-02-23 18:04 | PN ---
Subjective Date of Service: 02/23/17 Interval History: . Interviewed and examined patient at bedside; Discussed case with Dr. Ellis ; Reviewed previous notes and radiology results; Patient in good spirits Getting stronger- but slowly. Denies ESIPNOSA, SOB, CP. Eating ok. Eager to see relative in [place] on Saturday -- Plan to dc home early saturday AM. No longer neutropenic Laboratory Tests 02/19/17 02/23/17 14:20 10:06 WBC 3.9 Neut % (Auto) 80.2 Absolute Neuts (auto) 0.1 L* 3.2 Family History: Unchanged from Admission Social History: Unchanged from Admission Past Medical History: Unchanged from Admission Objective Active Medications: . Acetaminophen (Tylenol Tab*) 650 mg PO Q4H PRN PRN Reason: PAIN Cyanocobalamin (Vitamin B12 Tab*) 1,000 mcg PO DAILY [facility] Last Admin: 02/23/17 09:39 Dose: 1,000 mcg Digoxin (Lanoxin Tab*) 0.125 mg PO SuTuThSa@1700 [facility] Last Admin: 02/23/17 17:13 Dose: 0.125 mg Digoxin (Lanoxin Tab*) 0.25 mg PO MoWeFr@1700 [facility] Last Admin: 02/22/17 17:07 Dose: 0.25 mg Heparin Sodium (Porcine) (Heparin Flush Port (Ivad)) 5 ml FLUSH DAILY PRN; Protocol PRN Reason: Per Protocol Last Admin: 02/22/17 18:18 Dose: 5 ml Cefepime HCl (Maxipime 2 Gm In Dextrose Duplex (*)) 2 gm in 50 mls @ 100 mls/ hr IV Q8H [facility] Last Admin: 02/23/17 17:09 Dose: 100 mls/hr Multivitamins/Minerals (Theragran/Minerals Tab*) 1 tab PO DAILY [facility] Last Admin: 02/23/17 09:39 Dose: 1 tab Ondansetron HCl (Zofran Inj*) 4 mg IV Q4H PRN PRN Reason: NAUSEA/VOMITING Potassium Chloride (Klor Con Er Tab*) 20 meq PO BID [facility] Last Admin: 02/23/17 09:39 Dose: 20 meq Valacyclovir HCl (Valtrex 1 Gm(*)) 1 gm PO BID [facility] PRN Reason: Protocol Last Admin: 02/23/17 09:39 Dose: 1 gm . Vital Signs - 8 hr 02/23/17 02/23/17 11:53 15:47 Temperature 98.3 F Pulse Rate 103 95 Respiratory 18 17 Rate Blood Pressure 82/60 101/62 (mmHg) O2 Sat by Pulse 97 98 Oximetry Oxygen Devices in Use Now: None Appearance: NAD Eyes: No Scleral Icterus Ears/Nose/Mouth/Throat: Clear Oropharnyx Neck: Trachea Midline Respiratory: Symmetrical Chest Expansion and Respiratory Effort Cardiovascular: NL Sounds; No Murmurs; No JVD Abdominal: NL Sounds; No Tenderness; No Distention Lymphatic: No Cervical Adenopathy Extremities: No Edema Skin: No Rash or Ulcers Neurological: Alert and Oriented x 3 Lines/Tubes/Other Access: Clean, Dry and Intact Peripheral IV Nutrition: Taking PO's Result Diagrams: 02/23/17 10:06 02/20/17 05:50 Assess/Plan/Problems-Billing . Assessment: Mrs. Chery is a 76yo F with PMH of follicular lymphoma s/p chemo (last treatment (R-CHOP) was last week), glucose intolerance, HTN, Afib, who presented to ED with c/o fever, weakness, found to have significant neutropenia. - Patient Problems (1) Neutropenic fever Current Visit: Yes Status: Acute Priority: High Code(s): D70.9 - NEUTROPENIA, UNSPECIFIED; R50.81 - FEVER PRESENTING WITH CONDITIONS CLASSIFIED ELSEWHERE Comment: - Patient remains afebrile here, but had subjective fever at home. - ANC > 3 now - Continue Cefepime - change to oral abx tomorow. - No signs of mucositis (2) Atrial fibrillation Current Visit: Yes Status: Acute Priority: High Code(s): I48.91 - UNSPECIFIED ATRIAL FIBRILLATION Comment: - Continue digoxin. - Hypomagnesemia corrected. (3) Folliculitis Current Visit: Yes Status: Acute Priority: High Code(s): L73.9 - FOLLICULAR DISORDER, UNSPECIFIED Comment: - Cefepime/Valacyclovir. (4) Full code status Current Visit: Yes Status: Acute Code(s): Z78.9 - OTHER SPECIFIED HEALTH STATUS (5) Herpes genitalis Current Visit: Yes Status: Acute Code(s): A60.00 - HERPESVIRAL INFECTION OF UROGENITAL SYSTEM, UNSPECIFIED SNOMED Code(s): 14584083 Comment: -HSV PCR (+ for HSV-II); continue Valacyclovir. (6) DVT prophylaxis Current Visit: Yes Status: Acute Code(s): AZD9331 - Comment: - Pharmacological prophylaxis contraindicated in the setting of severe thrombocytopenia. - SCDs ordered Status and Disposition: Inpatient. Encouraged to work with PT so we can plan her discharge.
[2017-02-24] MEDS: Potassium Chlor TAB* 20 MEQ TAB.ER PO SCH ×3 (01:12→20:08)
[2017-02-24] MEDS: Cefepime 2 GM in Dextrose(*) 2 GM/50 ML BAG IV SCH ×2 (02:31→10:13)
[2017-02-24 05:00] LABS: Hematocrit 27 % (35-47); Hemoglobin 9.2 g/dl (12.0-16.0); Mean Corpuscular HGB Conc 34 g/dl (31-36); Mean Corpuscular Hemoglobin 31 pg (27-31); Mean Corpuscular Volume 92 fL (80-97); Mean Platelet Volume 8 um3 (7.4-10.4); Red Blood Count 2.96 10^6/ul (4.0-5.4); Red Cell Distribution Width 14 % (10.5-15)
[2017-02-24 05:05] LABS: Comments Flag Yes
[2017-02-24 05:15] LABS: BUN/Creatinine Ratio 23.9 (8-20); Calcium 9.6 mg/dL (8.6-10.3); EGFR African American 103.2 (>60); EGFR Non-African American 80.3 (>60); Potassium 3.9 mmol/L (3.5-5.0)
[2017-02-24] MEDS: Cyanocobalamin TAB* 500 MCG PO SCH (09:28)
[2017-02-24] MEDS: Multivitamins/Minerals TAB PO SCH (09:28)
[2017-02-24] MEDS: ValACYclovir (*) 1 GM TAB PO SCH ×2 (09:28→20:08)
[2017-02-24] MEDS: Levofloxacin TAB* 500 MG PO SCH (10:25)
[2017-02-24] MEDS: Digoxin TAB* 0.125 MG PO SCH (17:01)
--- NOTE | 2017-02-24 17:21 | PN ---
Hospitalist Progress Note Date of Service: 02/25/17 . HOSPITALIST DISCHARGE NOTE: See dc instructions and summary by me. Patient stable for dc dc instructions reviewed with the patient at the bedside. DC patient home today.
[2017-02-24] MEDS: Loperamide CAP* 2 MG PO PRN (20:34)
--- NOTE | 2017-02-25 04:19 | DS ---
CC: Dr. Holland; Dr. Vanegas * DISCHARGE SUMMARY: DATE OF ADMISSION: 02/19/17 DATE OF DISCHARGE: 02/25/17 (dictated in advance) PRIMARY CARE PROVIDER: Dr. Jud Holland. ONCOLOGIST: Dr. Vanegas at [facility]. PRINCIPAL DISCHARGE DIAGNOSIS: Neutropenic fever - resolved with mormon of ANC to normal levels. SECONDARY DIAGNOSES: 1. Follicular lymphoma/status post sixth round of R-CHOP on 02/11/17 and with 4 days of subsequent steroids and Neupogen with subsequent fevers necessitating this admission. 2. 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 3. History of prediabetes. 4. History of hypertension, off antihypertensive medicine since May 2016. 5. Hiatal hernia. 6. Atrial fibrillation. DISCHARGE MEDICATION REGIMEN: 1. Levaquin 500 mg daily for an additional 5 days then stop. 2. Digoxin 0.125 mg alternating with 0.25 mg by mouth daily. 3. Multivitamin one tablet by mouth once daily. 4. Vitamin B12 1000 mcg by mouth daily. 5. Valacyclovir/Valtrex 1 g p.o. b.i.d. 6. Potassium 20 mEq by mouth twice daily. 7. Loperamide OTC p.r.n. HISTORY OF PRESENT ILLNESS AND HOSPITAL COURSE: Please see the history and physical by Dr. Charlotte Adler and Amber Jones, YOSVANY. This was on 02/19/17. In brief, Ms. Chery is a 76-year-old female who [place] [facility] for weakness. She was diagnosed with follicular lymphoma in September 2016 and again R-CHOP in October 2016. She has just finished her sixth and final round of R-CHOP, which was without complication. She had post infusion steroids for 4 days. The patient completed that on 02/15. In the 2 to 3 days prior to this admission, she was tired and weak and was faint with standing. She did not ever lose consciousness. She said that her blood pressure was low at times. She had 2 small swollen areas in her suprapubic area and 1 on her right inner buttocks that were sore. She came to the emergency room and had a blood pressure in the 90s/50s, and she had a fever of greater than 99 and reported fever at home. The patient was admitted for neutropenic fever. She was started on IV cefepime by protocol. The patient was also treated with valacyclovir for general herpes that was positive by PCR testing. The patient had an ANC that was virtually 0. She had already received Neupogen. She was on neutropenic precautions over the subsequent days. She was monitored for her ANC , which improved to 3200 cells/dL by 02/23. During this hospitalization, she became aware of a relative that is dying in [place] and intends to go and visit that relative on Saturday. Accordingly, she is being discharged on Saturday morning, 02/25/17. She will go to the [place] area under the supervision of her son. She will come back and follow up with Dr. Holland and Dr. Vanegas as scheduled. She will continue and complete a 5-day course of Levaquin to ensure full treatment of any culprit infection causing her fever. TIME SPENT: Total time taken to discharge Ms. Chery was 45 minutes, greater than half that time was spent at the bedside going over the discharge instructions face- to-face with the patient. [id number]/[facility] #: [id number] MTDD
[2017-02-25 04:29] VITALS: BP 89/46
[2017-02-25] MEDS: Cyanocobalamin TAB* 500 MCG PO SCH (08:20)
[2017-02-25] MEDS: ValACYclovir (*) 1 GM TAB PO SCH (08:20)
[2017-02-25] MEDS: Potassium Chlor TAB* 20 MEQ TAB.ER PO SCH (08:20)
[2017-02-25] MEDS: Levofloxacin TAB* 500 MG PO SCH (08:20)
[2017-02-25] MEDS: Multivitamins/Minerals TAB PO SCH (08:20)
[2017-02-25] MEDS: Loperamide CAP* 2 MG PO PRN (08:28)
[2017-02-25 12:03] LABS: Albumin 3.6 g/dL (3.2-5.2); Globulin 2.3 g/dL (2-4); Total Bilirubin 0.3 mg/dL (0.2-1.0); Total Protein 5.9 g/dL (6.4-8.9); Uric Acid 4.7 mg/dL (2.3-6.6)
== END 2017-02-25 09:45 | disposition home or self-care (01) | DRG 809 ==
LOC: ED 12:38 → MED 18:48
PROVIDERS: ADMIT Hospitalist; ATTEND Internal Medicine
PROC: 0H97XZZ Drainage of Abdomen Skin, External Approach (ICD-10-PCS; principal; 2017-02-19)
PROC: 0H98XZZ Drainage of Buttock Skin, External Approach (ICD-10-PCS; 2017-02-19)
DX: D70.9 Neutropenia, unspecified (principal); C82.90 Follicular lymphoma, unspecified, unspecified site; D69.6 Thrombocytopenia, unspecified; I48.91 Unspecified atrial fibrillation; E83.42 Hypomagnesemia; R50.81 Fever presenting with conditions classified elsewhere; K44.9 Diaphragmatic hernia without obstruction or gangrene; L73.9 Follicular disorder, unspecified; A60.00 Herpesviral infection of urogenital system, unspecified; E74.39 Other disorders of intestinal carbohydrate absorption; Z91.048 Other nonmedicinal substance allergy status; Z79.899 Other long term (current) drug therapy; Z88.8 Allergy status to other drugs, medicaments and biological substances; Z91.040 Latex allergy status; Z88.2 Allergy status to sulfonamides
CPT/HCPCS: 36415; 71010; 80048; 80053; 80162; 81003; 81015; 83605; 83615; 83735; 84484; 84550; 85025; 85060; 85610; 85730; 87040; 87529; 87798; 93005; A9270-GY; J0690; J0692; J1642; J3475

== ENCOUNTER 2017-06-19 12:47 | Emergency (ER) | payer MEDICARE ==
--- OUTSIDE RECORDS SUMMARY | 2017-06-19 12:55 | XMS REPORT ---
:1940 External Reference #:[id number] Author Organization [facility] Address [address] [address] Phone [phone] Care Team Providers Name Role Phone Jud Holland MD Primary Care Physician Unavailable Payers Type Date Identification Numbers Payment Provider Subscriber Health Maintenance Policy Number: Medicare Blue Ppo [facility] ([facility]) [id number] Group Number: [id number] [address] [address] PayID: [id number] PILI Olson [address] Health Maintenance Expires: Policy Number: Medicare [facility] ([facility]) 12/10/2011 [id number] [facility] Miri PayID: [id number] [address] [address] PILI Olson [address] Problems Date Description Provider Status Onset: Paroxysmal atrial fibrillation Active Onset: 01/26/2011 Impaired fasting glycaemia Bernice Kerr, N.PBrittani Active Onset: 01/26/2011 Benign essential hypertension Bernice Kerr, N.PBrittani Active Onset: 01/26/2011 Hyperlipidemia Bernice Kerr, N.PBrittani Active Onset: 05/28/2016 Osteopenia Jud Holland M.D. Active Onset: 09/25/2016 Ascites Jud Holland M.D. Active Onset: 09/25/2016 Hydronephrosis Jud Holland M.D. Active Note: L side Onset: 09/25/2016 Calculus of kidney and ureter Jdu Holland M.D. Active Note: 1.4 cm Onset: 09/26/2016 Retroperitoneal mass Jud Holland M.D. 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 Olivares Onset: 09/25/2016 Pelvic mass Jud Holland M.D. Inactive Inactive: 10/10/2016 Family History Date Family Member(s) Problem(s) Comments General adopted General No Current Problems Mother Stroke Siblings 2 2 half sisters she has not met. 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 Cigarette Use Never Smoked Cigarettes ETOH Use Occasionally consumes alcohol Smoking Patient has never smoked Recreational Drug Use Denies Drug Use Has a prescription for medicinal marijuana-but does not use currently 02/05/17 Daily Caffeine Comsumes on average 1 cup of decaff coffee per day Exercise Type/Frequency Does not exercise General Hx Text Lives in [place], no time in the yard Allergies, Adverse Reactions, Alerts Date Description Reaction Status Severity Comments 04/13/2009 Sulfa INTOLERANCE-GI UPSET active Moderate 02/05/2017 Rituximab active Medications Medication Date Status Form Strength Qnty SIG Indications Ordering Provider Magnesium 03/06/ Active Tablets 250mg 90tabs 1 by mouth Brendan Oxide 2016 every other F. day ( pt Ma[place], stop taking M.D. saturday05/19/17) Digoxin 01/28/ Active Tablets 125mcg 120tab 2 tabs by Brendan 2017 s mouth every F. m,w,f and 1 Mauser, tab every M.D. other day of the week Vitamin B12 01/22/ Active Tablets ER 1000mcg once a day Jud Holland M.D. Multi For Her 01/22/ Active Tablets once a day Jud Holland M.D. Potassium / Active Tablets ER 20Meq 90tabs takes Brendan Chloride ER 0000 occasionally F. ---1 by Mauser, mouth every M.D. day ( Pt stop taking last week of 05/517) Medical / Active 2 puffs CTB Unknown Marijuana 0000 and THC at night MD in [place] Magnesium 03/06/ Hx Tablets 250mg 90tabs 1 by mouth Brendan Oxide 2017 - every day F. 03/06/ Myla Hernandez M.D. Magnesium 03/06/ Hx Tablets 250mg 90tabs 1 by mouth Brendan Oxide -MG 2017 - every day F. Supplement 03/06/ Maovidior, 2016 M.D. Keflex 02/18/ Hx Capsules 500mg 10caps 1 by mouth Jud 2016 - twice a day Holland, 02/23/ x 5 days M.D. 2016 Magnesium 02/08/ Hx Tablets 250mg 30tabs 1 by mouth Brendan Oxide -MG 2017 - every day F. Supplement Mauser2016 M.D. Magnesium 02/08/ Hx Tablets 250mg 30tabs 1 by mouth Brendan Oxide 2017 - every day F. Mauser2016 M.D. No Active 01/22/ Hx Unknown Medications 2017 - 2016 Digoxin 01/13/ Hx Tablets 125mcg 30tabs 1 by mouth Brendan 2017 - daily F. ovidio2016 M.D. No Active 09/25/ Hx Unknown Medications 2017 - 2016 Cipro 04/26/ Hx Tablets 500mg 14tabs 1 by mouth N39.0 Jud 2016 - twice a day Holland, 05/27/ for 7 days M.D. 2016 Cipro 03/01/ Hx Tablets 250mg 14tabs Did Not Take Bernice 2015 - Varn, 04/26/ N.P. 2017 Cephalexin 11/02/ Hx Capsules 500mg 21caps take one L03.114 Clayton 2016 - capsule Lisa, [employer]IR [employer] 11/09/ every 8 2016 hours for 7 days Ventolin HFA 02/25/ Hx Aerosol 108(90Base 1inhal 1 to 2 Bernice 2013 - ) mcg/Act er inhalations Varn, 10/21/ every 4 N.P. 2015 hours as needed Zostavax 11/05/ Hx Solution [id number] 1units 1 dose s/c Katty 2011 - Rec .65ML Airam, 02/20/ M.D., 2016 FACP Crutches 01/26/ Hx 1Pair Use as 729.4 Katty 2010 - needed for Airam, 10/21/ plantar M.D., 2015 fasciitis FACP Simvastatin 02/28/ Hx Tablets 20mg 90tabs 1 by mouth Katty 2009 - at bedtime Airam, 01/26/ M.D., 2011 FACP Physical Back Pain [facility]ty Therapy 2010 - Airam, 02/28/ M.D., 2009 FACP Atenolol / Hx Tablets 25mg 90tabs take 1 Jud 0000 - tablet by Skyler, 06/11/ mouth once M.D. 2016 daily Doxycycline / Hx Capsules 100mg 22caps Take 1 Glenn E. Hyclate 0000 - capsule by Latesha, 02/20/ mouth twice M.D. 2015 daily Tramadol HCL / Hx Tablets 50mg Unknown 0000 - 2015 Ondansetron / Hx Tablets 4mg dissolve one Unknown 0000 - Dispers tablet 05/09/ orally every 2017 12 hours as needed for nausea. R-Chop Chemo / Hx Done Unknown Medications 0000 - 2017 Immunizations CPT Code Status Date Vaccine Lot # [id number] Given 05/09/2017 Pneumococcal Conjugate Vaccine 13 Valent For [id number] Intramuscular Use 23422 Given 04/11/2017 Influenza Virus Vaccine, Quadrivalent, Split, Preservative Free 19600 Given 02/21/2016 Influenza Virus Vaccine, Quadrivalent, Split, [id number] Preservative Free Q2037 Given 10/14/2013 Fluvirin Im 3Yrs And Older 94537 Given 05/20/2013 Tdap - Tetanus/Diptheria/Acellular Pertussis Q2035 Given 10/23/2012 Afluria Vaccine 89151 Given 10/23/2012 Zoster (Zostavax) Q2038 Given 11/05/2011 Fluzone Vaccine [id number] 69291 Given 02/08/2010 Influenza Virus 3Yrs & Over 35279 Given 03/14/2009 Influenza Virus Vaccine, Pandemic Formulation 11530 Given 03/14/2009 Influenza Virus 3Yrs & Over 25592 Given 03/14/2009 Administration Swine Flu Shot 62805 Given 02/26/2006 Influenza Virus 3Yrs & Over Vital Signs Date Vital Result Comment 05/23/2017 Weight 144.00 lb with shoes Heart Rate 100 /min BP Systolic Sitting 128 mmHg Lue reg cuff BP Diastolic Sitting 78 mmHg Lue reg cuff BP Systolic Standing 130 mmHg Lue reg cuff BP Diastolic Standing 80 mmHg Lue reg cuff Respiratory Rate 18 /min Ejection Fraction 55-60% date 01/07/17 ECHO 05/23/2017 Weight 144.00 lb Heart Rate 95 /min BP Systolic Sitting 120 mmHg BP Diastolic Sitting 72 mmHg O2 % BldC Oximetry 96 % 05/09/2017 Weight 144.12 lb Heart Rate 98 /min BP Systolic Sitting 110 mmHg BP Diastolic Sitting 60 mmHg Body Temperature 97.8 F O2 % BldC Oximetry 95 % 02/05/2017 Height 65 inches 5'5" Weight 135.00 lb with shoes Heart Rate 106 /min BP Systolic Sitting 126 mmHg LA small cuff BP Diastolic Sitting 72 mmHg LA small cuff BP Systolic Standing 101 mmHg la repeat sitting BP Diastolic Standing 64 mmHg la repeat sitting BMI (Body Mass Index) 22.5 kg/m2 Ejection Fraction 55% - 60% echo 01/07/17 09/27/2016 Height 65 inches 5'5" Weight 167.00 lb Heart Rate 100 /min BP Systolic Sitting 130 mmHg BP Diastolic Sitting 76 mmHg Body Temperature 98.4 F O2 % BldC Oximetry 95 % BMI (Body Mass Index) 27.8 kg/m2 09/25/2016 Height 65 inches 5'5" Weight 168.00 lb Heart Rate 97 /min BP Systolic 120 mmHg BP Diastolic 80 mmHg Body Temperature 98.2 F O2 % BldC Oximetry 98 % BMI (Body Mass Index) 28.0 kg/m2 05/28/2016 Height 65 inches 5'5" Weight 180.38 lb Heart Rate 79 /min BP Systolic 120 mmHg BP Diastolic 76 mmHg Body Temperature 97.2 F O2 % BldC Oximetry 96 % BMI (Body Mass Index) 30.0 kg/m2 04/26/2016 Weight 184.12 lb Heart Rate 90 /min BP Systolic 120 mmHg BP Diastolic 80 mmHg Body Temperature 98.2 F O2 % BldC Oximetry 96 % 03/01/2016 Weight 183.00 lb Heart Rate 88 /min BP Systolic Sitting 122 mmHg BP Diastolic Sitting 64 mmHg Respiratory Rate 15 /min Body Temperature 97.4 F O2 % BldC Oximetry 98 % 02/21/2016 Weight 184.00 lb Heart Rate 80 /min BP Systolic Sitting 112 mmHg BP Diastolic Sitting 64 mmHg Body Temperature 98.4 F O2 % BldC Oximetry 97 % 12/06/2015 Height 65.5 inches 5'5.50" Weight 184.25 lb Heart Rate 64 /min BP Systolic Sitting 120 mmHg BP Diastolic Sitting 82 mmHg Respiratory Rate 14 /min Body Temperature 98.0 F BMI (Body Mass Index) 30.2 kg/m2 12/05/2015 Height 65.5 inches 5'5.50" Weight 184.12 lb Heart Rate 72 /min BP Systolic Sitting 132 mmHg BP Diastolic Sitting 82 mmHg Body Temperature 97.3 F O2 % BldC Oximetry 98 % BMI (Body Mass Index) 30.2 kg/m2 11/29/2015 Weight 184.50 lb Heart Rate 92 /min BP Systolic Sitting 126 mmHg BP Diastolic Sitting 70 mmHg Body Temperature 99.0 F O2 % BldC Oximetry 96 % 11/03/2015 Weight 192.00 lb Heart Rate 84 /min BP Systolic Sitting 144 mmHg BP Diastolic Sitting 84 mmHg Respiratory Rate 15 /min Body Temperature 100.2 F O2 % BldC Oximetry 98 % 10/21/2014 Height 65.5 inches 5'5.50" Weight 192.00 lb Heart Rate 66 /min BP Systolic Sitting 128 mmHg BP Diastolic Sitting 80 mmHg Body Temperature 98.7 F O2 % BldC Oximetry 97 % BMI (Body Mass Index) 31.5 kg/m2 11/05/2011 Height 65.5 inches 5'5.50" Weight 190.00 lb Heart Rate 60 /min BP Systolic Sitting 122 mmHg BP Diastolic Sitting 76 mmHg BMI (Body Mass Index) 31.1 kg/m2 01/26/2011 Height 65.5 inches 5'5.50" Weight 187.00 lb Heart Rate 58 /min BP Systolic Sitting 132 mmHg L BP Diastolic Sitting 80 mmHg L BMI (Body Mass Index) 30.6 kg/m2 02/28/2010 Weight 179.00 lb Heart Rate 62 /min BP Systolic 108 mmHg BP Diastolic 68 mmHg 02/08/2010 Weight 178.25 lb Heart Rate 72 /min BP Systolic 116 mmHg BP Diastolic 70 mmHg Results Test Date Test Result H/L Range Note Laboratory test finding 05/23/2017 Digoxin <pending> Laboratory test finding 05/23/2017 Magnesium <pending> Comp Metabolic Panel 05/22/2017 Sodium 139 mmol/L 133-145 Potassium 3.9 mmol/L 3.5-5.0 Chloride 106 mmol/L 101-111 Co2 Carbon Dioxide 28 mmol/L 22-32 Anion Gap 5 mmol/L 2-11 Glucose 108 mg/dL High 70-100 Blood Urea Nitrogen 25 mg/dL High 6-24 Creatinine 0.72 mg/dL 0.51-0.95 BUN/Creatinine Ratio 34.7 High 8-20 Calcium 9.6 mg/dL 8.6-10.3 Total Protein 6.3 g/dL Low 6.4-8.9 Albumin 4.2 g/dL 3.2-5.2 Globulin 2.1 g/dL 2-4 Albumin/Globulin Ratio 2.0 1-3 Total Bilirubin 0.50 mg/dL 0.2-1.0 Alkaline Phosphatase 55 U/L 34-104 Alt 18 U/L 7-52 Ast 22 U/L 13-39 Egfr Non- 79.0 >60 Egfr 101.6 >60 1 Laboratory test finding 05/22/2017 Magnesium 1.7 mg/dL Low 1.9-2.7 Digoxin 0.5 ng/ml Low 0.8-2.0 Comp Metabolic Panel 03/18/2017 Sodium 138 mmol/L 133-145 Potassium 3.8 mmol/L 3.5-5.0 Chloride 104 mmol/L 101-111 Co2 Carbon Dioxide 29 mmol/L 22-32 Anion Gap 5 mmol/L 2-11 Glucose 116 mg/dL High 70-100 Blood Urea Nitrogen 22 mg/dL 6-24 Creatinine 0.81 mg/dL 0.51-0.95 BUN/Creatinine Ratio 27.2 High 8-20 Calcium 9.2 mg/dL 8.6-10.3 Total Protein 5.6 g/dL Low 6.4-8.9 Albumin 3.8 g/dL 3.2-5.2 Globulin 1.8 g/dL Low 2-4 Albumin/Globulin Ratio 2.1 1-3 Total Bilirubin 0.40 mg/dL 0.2-1.0 Alkaline Phosphatase 49 U/L 34-104 Alt 13 U/L 7-52 Ast 19 U/L 13-39 Egfr Non- 68.9 >60 Egfr 88.6 >60 2 Laboratory test finding 03/18/2017 Uric Acid 5.6 mg/dL 2.3-6.6 LDH 121 U/L Low 140-271 CBC Auto Diff 03/18/2017 White Blood Count 4.2 10^3/uL 3.5-10.8 Red Blood Count 3.58 10^6/uL Low 4.0-5.4 Hemoglobin 11.1 g/dL Low 12.0-16.0 Hematocrit 33 % Low 35-47 Mean Corpuscular Volume 93 fL 80-97 Mean Corpuscular Hemoglobin 31 pg 27-31 Mean Corpuscular HGB Conc 33 g/dL 31-36 Red Cell Distribution Width 15 % 10.5-15 Platelet Count 115 10^3/uL Low 150-450 Mean Platelet Volume 8 um3 7.4-10.4 Abs Neutrophils 3.2 10^3/uL 1.5-7.7 Abs Lymphocytes 0.5 10^3/uL Low 1.0-4.8 Abs Monocytes 0.5 10^3/uL 0-0.8 Abs Eosinophils 0.1 10^3/uL 0-0.6 Abs Basophils 0 10^3/uL 0-0.2 Abs Nucleated RBC 0 10^3/uL Granulocyte % 76.0 % 38-83 Lymphocyte % 10.9 % Low 25-47 Monocyte % 11.4 % High 1-9 Eosinophil % 1.2 % 0-6 Basophil % 0.5 % 0-2 Nucleated Red Blood Cells % 0.1 Urinalysis Profile 02/19/2017 Urine Color Yellow Urine Appearance Clear Urine Specific [place] 1.003 Low 1.010-1.030 Urine pH 7.0 5-9 Urine Urobilinogen Negative Negative Urine Ketones Negative Negative Urine Protein Negative Negative Urine Leukocytes Negative Negative Urine Blood 1+ Negative Urine Nitrite Negative Negative Urine Bilirubin Negative Negative Urine Glucose Negative Negative Urine White Blood Cell Absent Absent Urine Red Blood Cell Trace(0-2/hpf) Absent Urine Bacteria Absent Absent Laboratory test finding 02/19/2017 Digoxin 0.7 ng/ml Low 0.8-2.0 Magnesium 1.7 mg/dL Low 1.9-2.7 Pathologist Review (SEE NOTE) 3 Blood Culture SEE RESULT BELOW 4 Manual Differential 02/19/2017 Neutrophil % 17 % Low 38-83 Lymphocytes % 62 % High 25-47 Monocytes % 10 % 0-13 Eosinophils % 1 % 0-6 Basophil % 1 % 0-2 Reactive Lymph % 9 % High 0-6 Hypochromasia 1+ Comments (SEE NOTE) 5 CBC Auto Diff 02/19/2017 White Blood Count 0.3 10^3/uL Low 3.5-10.8 Red Blood Count 2.84 10^6/uL Low 4.0-5.4 Hemoglobin 8.9 g/dL Low 12.0-16.0 Hematocrit 26 % Low 35-47 Mean Corpuscular Volume 92 fL 80-97 Mean Corpuscular Hemoglobin 31 pg 27-31 Mean Corpuscular HGB Conc 34 g/dL 31-36 Red Cell Distribution Width 14 % 10.5-15 Platelet Count 29 10^3/uL Low 150-450 Mean Platelet Volume 8 um3 7.4-10.4 Abs Neutrophils 0.1 10^3/uL Low 1.5-7.7 6 Abs Lymphocytes 0.2 10^3/uL Low 1.0-4.8 Abs Monocytes 0 10^3/uL 0-0.8 Abs Eosinophils 0 10^3/uL 0-0.6 Abs Basophils 0 10^3/uL 0-0.2 Laboratory test finding 02/19/2017 Troponin-I (TnI) 0.07 ng/mL High < 0.04 7 Comp Metabolic Panel 02/19/2017 Sodium 135 mmol/L 133-145 Potassium 3.7 mmol/L 3.5-5.0 Chloride 102 mmol/L 101-111 Co2 Carbon Dioxide 28 mmol/L 22-32 Anion Gap 5 mmol/L 2-11 Glucose 88 mg/dL 70-100 Blood Urea Nitrogen 21 mg/dL 6-24 Creatinine 0.83 mg/dL 0.51-0.95 BUN/Creatinine Ratio 25.3 High 8-20 Calcium 8.8 mg/dL 8.6-10.3 Total Protein 5.5 g/dL Low 6.4-8.9 Albumin 3.5 g/dL 3.2-5.2 Globulin 2.0 g/dL 2-4 Albumin/Globulin Ratio 1.8 1-3 Total Bilirubin 0.60 mg/dL 0.2-1.0 Alkaline Phosphatase 57 U/L 34-104 Alt 10 U/L 7-52 Ast 11 U/L Low 13-39 Egfr Non- 67.0 >60 Egfr 86.2 >60 8 Laboratory test finding 02/19/2017 Partial Thrombo Time 33.1 seconds 26.0 -36.3 PTT Inr/Protime 02/19/2017 Inr 0.99 0.77-1.02 9 Laboratory test finding 02/19/2017 Lactic Acid 1.0 mmol/L 0.5-2.0 10 Laboratory test finding 02/19/2017 Lactic Acid 1.5 mmol/L 0.5-2.0 11 Laboratory test finding 02/18/2017 Magnesium 1.7 mg/dL Low 1.9-2.7 Comp Metabolic Panel 02/18/2017 Sodium 135 mmol/L 133-145 Potassium 4.0 mmol/L 3.5-5.0 Chloride 99 mmol/L Low 101-111 Co2 Carbon Dioxide 32 mmol/L 22-32 Anion Gap 4 mmol/L 2-11 Glucose 86 mg/dL 70-100 Blood Urea Nitrogen 22 mg/dL 6-24 Creatinine 0.61 mg/dL 0.51-0.95 BUN/Creatinine Ratio 36.1 High 8-20 Calcium 9.0 mg/dL 8.6-10.3 Total Protein 5.4 g/dL Low 6.4-8.9 Albumin 3.6 g/dL 3.2-5.2 Globulin 1.8 g/dL Low 2-4 Albumin/Globulin Ratio 2.0 1-3 Total Bilirubin 0.60 mg/dL 0.2-1.0 Alkaline Phosphatase 65 U/L 34-104 Alt 10 U/L 7-52 Ast 15 U/L 13-39 Egfr Non- 95.6 >60 Egfr 123.0 >60 12 Laboratory test finding 02/18/2017 Uric Acid 5.1 mg/dL 2.3-6.6 LDH 132 U/L Low 140-271 Basic Metabolic Panel 02/18/2017 Sodium 135 mmol/L 133-145 Potassium 3.9 mmol/L 3.5-5.0 Chloride 100 mmol/L Low 101-111 Co2 Carbon Dioxide 32 mmol/L 22-32 Anion Gap 3 mmol/L 2-11 Glucose 85 mg/dL 70-100 Blood Urea Nitrogen 22 mg/dL 6-24 Creatinine 0.61 mg/dL 0.51-0.95 BUN/Creatinine Ratio 36.1 High 8-20 Calcium 9.0 mg/dL 8.6-10.3 Egfr Non- 95.6 >60 Egfr 123.0 >60 13 Laboratory test 02/16/2017 Troponin-I (TnI) 0.07 ng/mL High <0.04 14 finding Laboratory test 02/16/2017 Partial Thrombo Time 30.9 seconds 26.0-36.3 finding PTT Lactic Acid 1.6 mmol/L 0.5-2.0 15 B-Type Natriuretic Peptide BNP 524 pg/mL High 16 Comp Metabolic Panel 02/16/2017 Sodium 139 mmol/L 133-145 Potassium 3.4 mmol/L Low 3.5-5.0 Chloride 105 mmol/L 101-111 Co2 Carbon Dioxide 27 mmol/L 22-32 Anion Gap 7 mmol/L 2-11 Glucose 111 mg/dL High 70-100 Blood Urea Nitrogen 24 mg/dL 6-24 Creatinine 0.65 mg/dL 0.51-0.95 BUN/Creatinine Ratio 36.9 High 8-20 Calcium 9.5 mg/dL 8.6-10.3 Total Protein 5.7 g/dL Low 6.4-8.9 Albumin 3.8 g/dL 3.2-5.2 Globulin 1.9 g/dL Low 2-4 Albumin/Globulin Ratio 2.0 1-3 Total Bilirubin 0.60 mg/dL 0.2-1.0 Alkaline Phosphatase 93 U/L 34-104 Alt 10 U/L 7-52 Ast 17 U/L 13-39 Egfr Non- 88.9 >60 Egfr 114.3 >60 17 Laboratory test finding 02/16/2017 Magnesium 1.9 mg/dL 1.9-2.7 Creatine Kinase(CK) 12 U/L 10-223 Troponin-I (TnI) 0.07 ng/mL High <0.04 18 Digoxin 1.6 ng/ml 0.8-2.0 TSH (Thyroid Stim Horm) 0.26 mcIU/mL Low 0.34-5.60 T3 Free 2.50 pg/mL 2.5-3.9 Free T4 (Free Thyroxine) 0.94 ng/dL 0.61-1.12 CBC Auto Diff 02/16/2017 White Blood Count 18.2 10^3/uL High 3.5-10.8 Red Blood Count 2.94 10^6/uL Low 4.0-5.4 Hemoglobin 9.2 g/dL Low 12.0-16.0 Hematocrit 27 % Low 35-47 Mean Corpuscular Volume 93 fL 80-97 Mean Corpuscular Hemoglobin 31 pg 27-31 Mean Corpuscular HGB Conc 33 g/dL 31-36 Red Cell Distribution Width 16 % High 10.5-15 Platelet Count 53 10^3/uL Low 150-450 Mean Platelet Volume 9 um3 7.4-10.4 Abs Neutrophils 18.2 10^3/uL High 1.5-7.7 Abs Lymphocytes 0 10^3/uL Low 1.0-4.8 Abs Monocytes 0 10^3/uL 0-0.8 Abs Eosinophils 0 10^3/uL 0-0.6 Abs Basophils 0 10^3/uL 0-0.2 Manual Differential 02/16/2017 Immature Granulocytes 2 % 0-9 Neutrophil % 98 % High 38-83 Band % 2 % 0-8 Hypochromasia 1+ Laboratory test finding 02/16/2017 Pathologist Review (SEE NOTE) 19 Laboratory test finding 02/07/2017 Digoxin 0.5 ng/ml Low 0.8-2.0 20, 21 Magnesium 1.7 mg/dL Low 1.9-2.7 20, 22 CBC Auto Diff 02/04/2017 White Blood Count 5.5 10^3/uL 3.5-10.8 Red Blood Count 3.13 10^6/uL Low 4.0-5.4 Hemoglobin 9.7 g/dL Low 12.0-16.0 Hematocrit 29 % Low 35-47 Mean Corpuscular Volume 93 fL 80-97 Mean Corpuscular Hemoglobin 31 pg 27-31 Mean Corpuscular HGB Conc 34 g/dL 31-36 Red Cell Distribution Width 16 % High 10.5-15 Platelet Count 88 10^3/uL Low 150-450 23 Mean Platelet Volume 8 um3 7.4-10.4 Abs Neutrophils 4.5 10^3/uL 1.5-7.7 Abs Lymphocytes 0.5 10^3/uL Low 1.0-4.8 Abs Monocytes 0.5 10^3/uL 0-0.8 Abs Eosinophils 0 10^3/uL 0-0.6 Abs Basophils 0 10^3/uL 0-0.2 Abs Nucleated RBC 0 10^3/uL Granulocyte % 81.2 % 38-83 Lymphocyte % 8.8 % Low 25-47 Monocyte % 9.6 % High 1-9 Eosinophil % 0.1 % 0-6 Basophil % 0.3 % 0-2 Nucleated Red Blood Cells % 0.1 Comp Metabolic Panel 02/04/2017 Sodium 140 mmol/L 133-145 Potassium 3.9 mmol/L 3.5-5.0 Chloride 103 mmol/L 101-111 Co2 Carbon Dioxide 33 mmol/L High 22-32 Anion Gap 4 mmol/L 2-11 Glucose 103 mg/dL High 70-100 Blood Urea Nitrogen 16 mg/dL 6-24 Creatinine 0.71 mg/dL 0.51-0.95 BUN/Creatinine Ratio 22.5 High 8-20 Calcium 9.3 mg/dL 8.6-10.3 Total Protein 5.7 g/dL Low 6.4-8.9 Albumin 3.8 g/dL 3.2-5.2 Globulin 1.9 g/dL Low 2-4 Albumin/Globulin Ratio 2.0 1-3 Total Bilirubin 0.30 mg/dL 0.2-1.0 Alkaline Phosphatase 64 U/L 34-104 Alt 9 U/L 7-52 Ast 14 U/L 13-39 Egfr Non- 80.3 >60 Egfr 103.2 >60 24 Laboratory test finding 02/04/2017 Uric Acid 5.7 mg/dL 2.3-6.6 LDH 103 U/L Low 140-271 Digoxin 0.4 ng/ml Low 0.8-2.0 Comp Metabolic Panel 01/06/2017 Sodium 141 mmol/L 133-145 Potassium 3.0 mmol/L Low 3.5-5.0 Chloride 107 mmol/L 101-111 Co2 Carbon Dioxide 26 mmol/L 22-32 Anion Gap 8 mmol/L 2-11 Glucose 112 mg/dL High 70-100 Blood Urea Nitrogen 38 mg/dL High 6-24 Creatinine 0.76 mg/dL 0.51-0.95 BUN/Creatinine Ratio 50.0 High 8-20 Calcium 9.4 mg/dL 8.6-10.3 Total Protein 5.7 g/dL Low 6.4-8.9 Albumin 3.8 g/dL 3.2-5.2 Globulin 1.9 g/dL Low 2-4 Albumin/Globulin Ratio 2.0 1-3 Total Bilirubin 0.70 mg/dL 0.2-1.0 Alkaline Phosphatase 76 U/L 34-104 Alt 10 U/L 7-52 Ast 16 U/L 13-39 Egfr Non- 74.2 >60 Egfr 95.4 >60 25 Laboratory test finding 01/06/2017 Magnesium 1.8 mg/dL Low 1.9-2.7 Creatine Kinase(CK) < 10 U/L Low 10-223 Troponin-I (TnI) 0.03 ng/mL <0.04 CKMB 01/06/2017 CKMB ng/mL 2.2 ng/mL 0.6-6.3 Laboratory test 01/06/2017 TSH (Thyroid Stim 0.43 mcIU/mL 0.34-5.60 finding Horm) Laboratory test 01/06/2017 B-Type Natriuretic 581 pg/mL High 26 finding Peptide BNP Laboratory test 01/06/2017 Lactic Acid 2.2 mmol/L High 0.5-2.0 27 finding Blood Culture SEE RESULT BELOW 28 CBC Auto Diff 01/06/2017 White Blood Count 5.7 10^3/uL 3.5-10.8 Red Blood Count 3.10 10^6/uL Low 4.0-5.4 Hemoglobin 9.1 g/dL Low 12.0-16.0 Hematocrit 27 % Low 35-47 Mean Corpuscular Volume 88 fL 80-97 Mean Corpuscular Hemoglobin 29 pg 27-31 Mean Corpuscular HGB Conc 33 g/dL 31-36 Red Cell Distribution Width 22 % High 10.5-15 Platelet Count 46 10^3/uL Low 150-450 Mean Platelet Volume 9 um3 7.4-10.4 Abs Nucleated RBC 0 10^3/uL Abs Neutrophils 5.3 10^3/uL 1.5-7.7 Abs Lymphocytes 0.3 10^3/uL Low 1.0-4.8 Abs Monocytes 0.1 10^3/uL 0-0.8 Abs Eosinophils 0 10^3/uL 0-0.6 Abs Basophils 0 10^3/uL 0-0.2 Manual Differential 01/06/2017 Immature Granulocytes 2 % 0-9 Neutrophil % 92 % High 38-83 Band % 2 % 0-8 Lymphocytes % 5 % Low 25-47 Monocytes % 1 % 0-13 Toxic Granulation 1+ Hypochromasia 1+ RBC Inclusions Dohle Bodies Laboratory test finding 01/06/2017 Pathologist Review (SEE NOTE) 29 Laboratory test finding 12/17/2016 LDH 176 U/L 140-271 Comp Metabolic Panel 12/17/2016 Sodium 138 mmol/L 133-145 Potassium 3.5 mmol/L 3.5-5.0 Chloride 104 mmol/L 101-111 Co2 Carbon Dioxide 29 mmol/L 22-32 Anion Gap 5 mmol/L 2-11 Glucose 114 mg/dL High 70-100 Blood Urea Nitrogen 25 mg/dL High 6-24 Creatinine 0.62 mg/dL 0.51-0.95 BUN/Creatinine Ratio 40.3 High 8-20 Calcium 8.7 mg/dL 8.6-10.3 Total Protein 5.3 g/dL Low 6.4-8.9 Albumin 3.6 g/dL 3.2-5.2 Globulin 1.7 g/dL Low 2-4 Albumin/Globulin Ratio 2.1 1-3 Total Bilirubin 0.80 mg/dL 0.2-1.0 Alkaline Phosphatase 64 U/L 34-104 Alt 10 U/L 7-52 Ast 14 U/L 13-39 Egfr Non- 93.8 >60 Egfr 120.7 >60 30 Laboratory test finding 12/17/2016 Uric Acid 5.0 mg/dL 2.3-6.6 CBC Auto Diff 12/17/2016 White Blood Count 1.4 10^3/uL Low 3.5-10.8 Red Blood Count 3.64 10^6/uL Low 4.0-5.4 Hemoglobin 10.0 g/dL Low 12.0-16.0 Hematocrit 30 % Low 35-47 Mean Corpuscular Volume 83 fL 80-97 Mean Corpuscular Hemoglobin 27 pg 27-31 Mean Corpuscular HGB Conc 33 g/dL 31-36 Red Cell Distribution Width 21 % High 10.5-15 Platelet Count 62 10^3/uL Low 150-450 Mean Platelet Volume 9 um3 7.4-10.4 Abs Neutrophils 1.11 10^3/uL Low 1.5-7.7 Abs Lymphocytes 0.21 10^3/uL Low 1.0-4.8 Abs Monocytes 0.07 10^3/uL 0-0.8 Abs Eosinophils 0.01 10^3/uL 0-0.6 Abs Basophils 0 10^3/uL 0-0.2 Abs Nucleated RBC 0 10^3/uL Manual Differential 12/17/2016 Immature Granulocytes 2 % 0-9 Neutrophil % 77 % 38-83 Band % 2 % 0-8 Lymphocytes % 14 % Low 25-47 Monocytes % 5 % 0-13 Eosinophils % 1 % 0-6 Reactive Lymph % 1 % 0-6 RBC Morphology Normal Normal Laboratory test finding 12/17/2016 Pathologist Review (SEE NOTE) 31 Urinalysis Profile 11/07/2016 Urine Color Yellow Urine Appearance Clear Urine Specific [place] 1.014 1.010-1.030 Urine pH 6.0 5-9 Urine Urobilinogen Negative Negative Urine Ketones 2+ Negative Urine Protein Negative Negative Urine Leukocytes Negative Negative Urine Blood 1+ Negative Urine Nitrite Positive Negative Urine Bilirubin Negative Negative Urine Glucose Negative Negative Urine White Blood Cell Trace(0-5/hpf) Absent Urine Red Blood Cell Trace(0-2/hpf) Absent Urine Bacteria Absent Absent Urine Squamous Epithelial Cell Present Absent Urine Culture And 11/07/2016 Urine Culture SEE RESULT BELOW 32 Sensitivities Laboratory test finding 11/07/2016 Lactic Acid 0.8 mmol/L 0.5-2.0 33 CBC Auto Diff 11/07/2016 White Blood Count 0.2 10^3/uL Low 3.5-10.8 Red Blood Count 3.98 10^6/uL Low 4.0-5.4 Hemoglobin 10.5 g/dL Low 12.0-16.0 Hematocrit 32 % Low 35-47 Mean Corpuscular Volume 79 fL Low 80-97 Mean Corpuscular Hemoglobin 26 pg Low 27-31 Mean Corpuscular HGB Conc 33 g/dL 31-36 Red Cell Distribution Width 14 % 10.5-15 Platelet Count 52 10^3/uL Low 150-450 Mean Platelet Volume 8 um3 7.4-10.4 Abs Neutrophils 0.1 10^3/uL Low 1.5-7.7 34 Abs Lymphocytes 0.1 10^3/uL Low 1.0-4.8 Abs Monocytes 0.1 10^3/uL 0-0.8 Abs Eosinophils 0 10^3/uL 0-0.6 Abs Basophils 0 10^3/uL 0-0.2 Abs Nucleated RBC 0 10^3/uL Granulocyte % 24.5 % Low 38-83 Lymphocyte % 31.0 % 25-47 Monocyte % 34.2 % High 1-9 Eosinophil % 9.3 % High 0-6 Basophil % 1.0 % 0-2 Nucleated Red Blood Cells % 0.3 Laboratory test finding 11/07/2016 Partial Thrombo Time 58.4 seconds High 26.0-36.3 PTT Comp Metabolic Panel 11/07/2016 Sodium 133 mmol/L 133-145 Potassium 3.8 mmol/L 3.5-5.0 Chloride 99 mmol/L Low 101-111 Co2 Carbon Dioxide 26 mmol/L 22-32 Anion Gap 8 mmol/L 2-11 Glucose 94 mg/dL 70-100 Blood Urea Nitrogen 18 mg/dL 6-24 Creatinine 0.63 mg/dL 0.51-0.95 BUN/Creatinine Ratio 28.6 High 8-20 Calcium 8.9 mg/dL 8.6-10.3 Total Protein 5.0 g/dL Low 6.4-8.9 Albumin 3.1 g/dL Low 3.2-5.2 Globulin 1.9 g/dL Low 2-4 Albumin/Globulin Ratio 1.6 1-3 Total Bilirubin 1.20 mg/dL High 0.2-1.0 Alkaline Phosphatase 47 U/L 34-104 Alt 9 U/L 7-52 Ast 10 U/L Low 13-39 Egfr Non- 92.1 >60 Egfr 118.5 >60 35 Laboratory test finding 11/07/2016 Lipase < 10 U/L Low 11.0-82.0 Troponin-I (TnI) 0.00 ng/mL <0.04 Urinalysis Profile 10/17/2016 Urine Color Yellow Urine Appearance Clear Urine Specific [place] 1.048 High 1.010-1.030 Urine pH 5.0 5-9 Urine Urobilinogen Negative Negative Urine Ketones Trace Negative Urine Protein Negative Negative Urine Leukocytes Negative Negative Urine Blood Negative Negative Urine Nitrite Negative Negative Urine Bilirubin Negative Negative Urine Glucose Negative Negative CBC Auto Diff 10/17/2016 White Blood Count 6.7 10^3/uL 3.5-10.8 Red Blood Count 4.55 10^6/uL 4.0-5.4 Hemoglobin 12.0 g/dL 12.0-16.0 Hematocrit 37 % 35-47 Mean Corpuscular Volume 81 fL 80-97 Mean Corpuscular Hemoglobin 26 pg Low 27-31 Mean Corpuscular HGB Conc 32 g/dL 31-36 Red Cell Distribution Width 14 % 10.5-15 Platelet Count 291 10^3/uL 150-450 Mean Platelet Volume 7 um3 Low 7.4-10.4 Abs Neutrophils 5.6 10^3/uL 1.5-7.7 Abs Lymphocytes 0.3 10^3/uL Low 1.0-4.8 Abs Monocytes 0.7 10^3/uL 0-0.8 Abs Eosinophils 0 10^3/uL 0-0.6 Abs Basophils 0 10^3/uL 0-0.2 Abs Nucleated RBC 0 10^3/uL Granulocyte % 84.1 % High 38-83 Lymphocyte % 5.0 % Low 25-47 Monocyte % 10.0 % High 1-9 Eosinophil % 0.5 % 0-6 Basophil % 0.4 % 0-2 Nucleated Red Blood Cells % 0.1 Laboratory test finding 10/17/2016 Lactic Acid 0.8 mmol/L 0.5-2.0 36 Inr/Protime 10/17/2016 Inr 0.95 0.89-1.11 Laboratory test finding 10/17/2016 Partial Thrombo Time 31.7 seconds 26.0 -36.3 PTT Comp Metabolic Panel 10/17/2016 Sodium 137 mmol/L 133-145 Potassium 4.0 mmol/L 3.5-5.0 Chloride 103 mmol/L 101-111 Co2 Carbon Dioxide 26 mmol/L 22-32 Anion Gap 8 mmol/L 2-11 Glucose 89 mg/dL 70-100 Blood Urea Nitrogen 21 mg/dL 6-24 Creatinine 1.02 mg/dL High 0.51-0.95 BUN/Creatinine Ratio 20.6 High 8-20 Calcium 9.1 mg/dL 8.6-10.3 Total Protein 5.9 g/dL Low 6.4-8.9 Albumin 3.1 g/dL Low 3.2-5.2 Globulin 2.8 g/dL 2-4 Albumin/Globulin Ratio 1.1 1-3 Total Bilirubin 0.50 mg/dL 0.2-1.0 Alkaline Phosphatase 62 U/L 34-104 Alt 14 U/L 7-52 Ast 22 U/L 13-39 Egfr Non- 52.8 >60 Egfr 67.9 >60 37 Laboratory test finding 10/17/2016 Magnesium 1.9 mg/dL 1.9-2.7 Lipase 13 U/L 11.0-82.0 C Reactive Protein 20.35 mg/L High < 5.00 38 Troponin-I (TnI) 0.01 ng/mL <0.04 TSH (Thyroid Stim Horm) 1.88 mcIU/mL 0.34-5.60 Folic Acid (Folate) 10.14 ng/mL >3.99 Vitamin B12 407 pg/mL 180-914 39 CBC Auto Diff 09/29/2016 White Blood Count 9.7 10^3/uL 3.5-10.8 Red Blood Count 4.51 10^6/uL 4.0-5.4 Hemoglobin 12.3 g/dL 12.0-16.0 Hematocrit 38 % 35-47 Mean Corpuscular Volume 83 fL 80-97 Mean Corpuscular Hemoglobin 27 pg 27-31 Mean Corpuscular HGB Conc 33 g/dL 31-36 Red Cell Distribution Width 13 % 10.5-15 Platelet Count 182 10^3/uL 150-450 Mean Platelet Volume 9 um3 7.4-10.4 Abs Neutrophils 7.9 10^3/uL High 1.5-7.7 Abs Lymphocytes 0.4 10^3/uL Low 1.0-4.8 Abs Monocytes 1.3 10^3/uL High 0-0.8 Abs Eosinophils 0 10^3/uL 0-0.6 Abs Basophils 0 10^3/uL 0-0.2 Abs Nucleated RBC 0 10^3/uL Granulocyte % 81.7 % 38-83 Lymphocyte % 4.3 % Low 25-47 Monocyte % 13.5 % High 1-9 Eosinophil % 0.2 % 0-6 Basophil % 0.3 % 0-2 Nucleated Red Blood Cells % 0 Laboratory test finding 09/29/2016 B-Type Natriuretic Peptide 45 pg/mL 40 BNP Comp Metabolic Panel 09/29/2016 Sodium 133 mmol/L 133-145 Potassium 4.0 mmol/L 3.5-5.0 Chloride 101 mmol/L 101-111 Co2 Carbon Dioxide 21 mmol/L Low 22-32 Anion Gap 11 mmol/L 2-11 Glucose 106 mg/dL High 70-100 Blood Urea Nitrogen 25 mg/dL High 6-24 Creatinine 0.95 mg/dL 0.51-0.95 BUN/Creatinine Ratio 26.3 High 8-20 Calcium 9.5 mg/dL 8.6-10.3 Total Protein 6.4 g/dL 6.4-8.9 Albumin 3.7 g/dL 3.2-5.2 Globulin 2.7 g/dL 2-4 Albumin/Globulin Ratio 1.4 1-3 Total Bilirubin 1.30 mg/dL High 0.2-1.0 Alkaline Phosphatase 61 U/L 34-104 Alt 9 U/L 7-52 Ast 22 U/L 13-39 Egfr Non- 57.3 >60 Egfr 73.8 >60 41 Laboratory test 09/29/2016 Magnesium 1.7 mg/dL Low 1.9-2.7 finding Inr/Protime 09/29/2016 Inr 1.02 0.89-1.11 Laboratory test 09/29/2016 D Dimer Quantitative 757 ng/mL High Less Than 230 42 finding Lactic Acid 0.7 mmol/L 0.5-2.0 43 Laboratory test finding 09/25/2016 Vitamin D Total 25(Oh) 15.2 ng/mL Low 30-50 Pthi 09/25/2016 Calcium (PTH Intact) 10.0 mg/dL 8.6-10.3 PTH Intact 1.6 pmol/L 1.3-9.3 Laboratory test finding 09/25/2016 Glucose 86 mg/dL 70-100 Hemoglobin A1c (Glyco HGB) 5.6 % Less than 6.0 44 Comp Metabolic Panel 09/25/2016 Sodium 140 mmol/L 133-145 Potassium 4.0 mmol/L 3.5-5.0 Chloride 105 mmol/L 101-111 Co2 Carbon Dioxide 26 mmol/L 22-32 Anion Gap 9 mmol/L 2-11 Glucose 85 mg/dL 70-100 Blood Urea Nitrogen 24 mg/dL 6-24 Creatinine 1.04 mg/dL High 0.51-0.95 BUN/Creatinine Ratio 23.1 High 8-20 Calcium 10.0 mg/dL 8.6-10.3 Total Protein 6.2 g/dL Low 6.4-8.9 Albumin 4.0 g/dL 3.2-5.2 Globulin 2.2 g/dL 2-4 Albumin/Globulin Ratio 1.8 1-3 Total Bilirubin 0.80 mg/dL 0.2-1.0 Alkaline Phosphatase 64 U/L 34-104 Alt 9 U/L 7-52 Ast 23 U/L 13-39 Egfr Non- 51.7 >60 Egfr 66.4 >60 45 Laboratory test finding 09/25/2016 TSH (Thyroid Stim Horm) 2.29 mcIU/mL 0.34-5.60 CBC Auto Diff 09/25/2016 White Blood Count 7.6 10^3/uL 3.5-10.8 Red Blood Count 4.78 10^6/uL 4.0-5.4 Hemoglobin 13.1 g/dL 12.0-16.0 Hematocrit 40 % 35-47 Mean Corpuscular Volume 84 fL 80-97 Mean Corpuscular Hemoglobin 27 pg 27-31 Mean Corpuscular HGB Conc 32 g/dL 31-36 Red Cell Distribution Width 13 % 10.5-15 Platelet Count 180 10^3/uL 150-450 Mean Platelet Volume 9 um3 7.4-10.4 Abs Neutrophils 5.9 10^3/uL 1.5-7.7 Abs Lymphocytes 0.7 10^3/uL Low 1.0-4.8 Abs Monocytes 0.9 10^3/uL High 0-0.8 Abs Eosinophils 0 10^3/uL 0-0.6 Abs Basophils 0.1 10^3/uL 0-0.2 Abs Nucleated RBC 0.01 10^3/uL Granulocyte % 77.4 % 38-83 Lymphocyte % 9.1 % Low 25-47 Monocyte % 12.3 % High 1-9 Eosinophil % 0.5 % 0-6 Basophil % 0.7 % 0-2 Nucleated Red Blood Cells % 0.1 Laboratory test finding 09/25/2016 CA 125 (Ovarian 1893.7 U/mL High 0-35 46 Cancer Ag) Order 05/28/2016 EKG <pending> Urine Culture And 04/26/2016 Urine Culture SEE RESULT BELOW 47 Sensitivities Ua Routine 04/26/2016 Ua Specific [place] 1.015 Ua PH 5 Ua Color cloudy Ua Appera red in color Ua WBC ++ Ua Protein +++ Ua Glucose noraml Ua Ketones negative Ua Bilirubin negative Ua Urobilinogen normal Ua Nitrite positive Ua Occult Blood large Urine Culture And 03/01/2016 Urine Culture SEE RESULT BELOW 48 Sensitivities Ua Routine 03/01/2016 Ua Specific [place] 1.020 Ua PH 5 Ua Color yellow Ua Appera cloudy Ua WBC small Ua Protein neg Ua Glucose neg Ua Ketones neg Ua Bilirubin neg Ua Urobilinogen neg Ua Nitrite neg Ua Occult Blood small Laboratory test finding 02/21/2016 Lyme Disease Serology Positive Negative 49 Lyme Western Blot 02/21/2016 Lyme Disease IgG Ab WB Positive Negative Lyme Disease IgG Bands Present See Comment kDa 50 Lyme Disease IgM Ab WB Positive Negative Lyme Disease IgM Bands Present p41, p39, kDa Lyme Disease Interpretation See Comment 51 Lipid Profile (Trig/Chol/HDL) 02/21/2016 Triglycerides 67 mg/dL 52 Cholesterol 179 mg/dL 53 HDL Cholesterol 34.9 mg/dL 54 LDL Cholesterol 131 mg/dL 55 Basic Metabolic Panel 02/21/2016 Sodium 138 mmol/L 133-145 Potassium 4.2 mmol/L 3.5-5.0 Chloride 104 mmol/L 101-111 Co2 Carbon Dioxide 30 mmol/L 22-32 Anion Gap 4 mmol/L 2-11 Glucose 106 mg/dL High 70-100 Blood Urea Nitrogen 24 mg/dL 6-24 Creatinine 0.91 mg/dL 0.51-0.95 BUN/Creatinine Ratio 26.4 High 8-20 Calcium 9.8 mg/dL 8.6-10.3 Egfr Non- 60.4 >60 Egfr 77.7 >60 56 Lyme Western Blot 11/27/2015 Lyme Disease IgG Ab WB Negative Negative Lyme Disease IgG Bands Present p66, p41, p23, kDa Lyme Disease IgM Ab WB Positive Negative Lyme Disease IgM Bands Present p41, p23, kDa Lyme Disease Interpretation See Comment 57 Laboratory test finding 11/27/2015 Erythrocyte Sed Rate 29 mm/Hr 0-40 Lyme Disease Serology Positive Negative 58 CBC Auto Diff 11/27/2015 White Blood Count 4.7 10^3/uL 3.5-10.8 Red Blood Count 4.92 10^6/uL 4.0-5.4 Hemoglobin 13.2 g/dL 12.0-16.0 Hematocrit 40 % 35-47 Mean Corpuscular Volume 82 fL 80-97 Mean Corpuscular Hemoglobin 27 pg 27-31 Mean Corpuscular HGB Conc 33 g/dL 31-36 Red Cell Distribution Width 14 % 10.5-15 Platelet Count 137 10^3/uL Low 150-450 Mean Platelet Volume 8 um3 7.4-10.4 Abs Neutrophils 3.5 10^3/uL 1.5-7.7 Abs Lymphocytes 0.5 10^3/uL Low 1.0-4.8 Abs Monocytes 0.7 10^3/uL 0-0.8 Abs Eosinophils 0 10^3/uL 0-0.6 Abs Basophils 0 10^3/uL 0-0.2 Abs Nucleated RBC 0 10^3/uL Granulocyte % 74.4 % 38-83 Lymphocyte % 9.9 % Low 25-47 Monocyte % 14.6 % High 1-9 Eosinophil % 0.5 % 0-6 Basophil % 0.6 % 0-2 Nucleated Red Blood Cells % 0.1 Laboratory test finding 11/27/2015 C Reactive Protein 5.03 mg/L High < 5.00 59 1 Because ethnic data is not always readily available, this report includes an eGFR for both -Americans and non- Americans. The National Kidney Disease Education Program (NKDEP) does not endorse the use of the MDRD equation for patients that are not between the ages of 18 and 70, are , have extremes of body size, muscle mass, or nutritional status, or are non- or non-. According to the National Kidney Foundation, irrespective of diagnosis, the stage of the disease is based on the level of kidney function: Stage Description GFR(mL/min/1.73 m(2)) 1 Kidney damage with normal or decreased GFR 90 2 Kidney damage with mild decrease in GFR 60-89 3 Moderate decrease in GFR 30-59 4 Severe decrease in GFR 15-29 5 Kidney failure <15 (or dialysis) 2 Because ethnic data is not always readily available, this report includes an eGFR for both -Americans and non- Americans. The National Kidney Disease Education Program (NKDEP) does not endorse the use of the MDRD equation for patients that are not between the ages of 18 and 70, are , have extremes of body size, muscle mass, or nutritional status, or are non- or non-. According to the National Kidney Foundation, irrespective of diagnosis, the stage of the disease is based on the level of kidney function: Stage Description GFR(mL/min/1.73 m(2)) 1 Kidney damage with normal or decreased GFR 90 2 Kidney damage with mild decrease in GFR 60-89 3 Moderate decrease in GFR 30-59 4 Severe decrease in GFR 15-29 5 Kidney failure <15 (or dialysis) 3 Pancytopenia with absolute neutropenia, normocytic anemia, and marked thrombocytopenia. No evidence of a hemolytic process. Reviewed by Jenna Hodgson MD 4 SEE RESULT BELOW Name: MER[facility] MONAH[facility] : [address]: Margot Sharif MD Acct: [id number] Unit: [id number] AGE: 76 Location: [place] [address]- Re02/19/17 SEX: F Status: ADM IN SPEC: [id number] DONALD: 02/19/17 [facility] DR: Jasen Carolina MD REQ: [id number] RECD: 02/19/17 STATUS: RES OTHR DR: Jud Holland MD _ SOURCE: BLOOD,VENO SPDESC: ORDERED: Blood Cult COMMENTS: COLLECTED FROM LAC Procedure Result Reported Site Aerobic Culture Bottle Preliminary 02/20/17- 1425 ML No Growth Day 1 Anaerobic Culture Bottle Preliminary 02/20/17- 1425 ML No Growth Day 1 * ML - MAIN LAB ([facility]) . END OF REPORT * ML=Testing performed at Main Lab DEPARTMENT OF PATHOLOGY, [address] [place] [address] Nico Boucher M.D. Director [facility] # [id number] 5 Differential performed on buffy coat. 6 Verbal to [id number] by [id number] at 1534 on 02/19/17. Results read back accurately. 7 Result TnIDx:0.07 Called to [id number] at: 14:46:42 by:[id number] Read back by: [id number] 8 Because ethnic data is not always readily available, this report includes an eGFR for both -Americans and non- Americans. The National Kidney Disease Education Program (NKDEP) does not endorse the use of the MDRD equation for patients that are not between the ages of 18 and 70, are , have extremes of body size, muscle mass, or nutritional status, or are non- or non-. According to the National Kidney Foundation, irrespective of diagnosis, the stage of the disease is based on the level of kidney function: Stage Description GFR(mL/min/1.73 m(2)) 1 Kidney damage with normal or decreased GFR 90 2 Kidney damage with mild decrease in GFR 60-89 3 Moderate decrease in GFR 30-59 4 Severe decrease in GFR 15-29 5 Kidney failure <15 (or dialysis) 9 Please note the change in INR reference range effective 17. 10 [facility] Severe Sepsis and Septic Shock Management Bundle Measure requires all lactic acids initially measuring >2.0 mmol/L be repeated. 11 [facility] Severe Sepsis and Septic Shock Management Bundle Measure requires all lactic acids initially measuring >2.0 mmol/L be repeated. 12 Because ethnic data is not always readily available, this report includes an eGFR for both -Americans and non- Americans. The National Kidney Disease Education Program (NKDEP) does not endorse the use of the MDRD equation for patients that are not between the ages of 18 and 70, are , have extremes of body size, muscle mass, or nutritional status, or are non- or non-. According to the National Kidney Foundation, irrespective of diagnosis, the stage of the disease is based on the level of kidney function: Stage Description GFR(mL/min/1.73 m(2)) 1 Kidney damage with normal or decreased GFR 90 2 Kidney damage with mild decrease in GFR 60-89 3 Moderate decrease in GFR 30-59 4 Severe decrease in GFR 15-29 5 Kidney failure <15 (or dialysis) 13 Because ethnic data is not always readily available, this report includes an eGFR for both -Americans and non- Americans. The National Kidney Disease Education Program (NKDEP) does not endorse the use of the MDRD equation for patients that are not between the ages of 18 and 70, are , have extremes of body size, muscle mass, or nutritional status, or are non- or non-. According to the National Kidney Foundation, irrespective of diagnosis, the stage of the disease is based on the level of kidney function: Stage Description GFR(mL/min/1.73 m(2)) 1 Kidney damage with normal or decreased GFR 90 2 Kidney damage with mild decrease in GFR 60-89 3 Moderate decrease in GFR 30-59 4 Severe decrease in GFR 15-29 5 Kidney failure <15 (or dialysis) 14 Result TnIDx:0.07 Called to [id number] at: 14:50:10 by:[id number] Read back by: [id number] 15 [facility] Severe Sepsis and Septic Shock Management Bundle Measure requires all lactic acids initially measuring >2.0 mmol/L be repeated. 16 >100 to <200 pg/mL: likely compensated congestive heart failure (CHF) 200 to 400 pg/mL: likely moderate CHF >400 pg/mL: likely moderate to severe CHF 17 Because ethnic data is not always readily available, this report includes an eGFR for both -Americans and non- Americans. The National Kidney Disease Education Program (NKDEP) does not endorse the use of the MDRD equation for patients that are not between the ages of 18 and 70, are , have extremes of body size, muscle mass, or nutritional status, or are non- or non-. According to the National Kidney Foundation, irrespective of diagnosis, the stage of the disease is based on the level of kidney function: Stage Description GFR(mL/min/1.73 m(2)) 1 Kidney damage with normal or decreased GFR 90 2 Kidney damage with mild decrease in GFR 60-89 3 Moderate decrease in GFR 30-59 4 Severe decrease in GFR 15-29 5 Kidney failure <15 (or dialysis) 18 Result TnIDx:0.07 Called to [id number] at: 10:48:09 by:[id number] Read back by: [id number] 19 Leukocytosis with absolute neutrophilia and moderate thrombocytopenia noted. Reactive/inflammatory process is favored. Additional studies should be considered as clinically warranted. 20 [id number] 22 [id number] 23 Consistent with previous results on 01/28/17. 24 Because ethnic data is not always readily available, this report includes an eGFR for both -Americans and non- Americans. The National Kidney Disease Education Program (NKDEP) does not endorse the use of the MDRD equation for patients that are not between the ages of 18 and 70, are , have extremes of body size, muscle mass, or nutritional status, or are non- or non-. According to the National Kidney Foundation, irrespective of diagnosis, the stage of the disease is based on the level of kidney function: Stage Description GFR(mL/min/1.73 m(2)) 1 Kidney damage with normal or decreased GFR 90 2 Kidney damage with mild decrease in GFR 60-89 3 Moderate decrease in GFR 30-59 4 Severe decrease in GFR 15-29 5 Kidney failure <15 (or dialysis) 25 Because ethnic data is not always readily available, this report includes an eGFR for both -Americans and non- Americans. The National Kidney Disease Education Program (NKDEP) does not endorse the use of the MDRD equation for patients that are not between the ages of 18 and 70, are , have extremes of body size, muscle mass, or nutritional status, or are non- or non-. According to the National Kidney Foundation, irrespective of diagnosis, the stage of the disease is based on the level of kidney function: Stage Description GFR(mL/min/1.73 m(2)) 1 Kidney damage with normal or decreased GFR 90 2 Kidney damage with mild decrease in GFR 60-89 3 Moderate decrease in GFR 30-59 4 Severe decrease in GFR 15-29 5 Kidney failure <15 (or dialysis) 26 >100 to <200 pg/mL: likely compensated congestive heart failure (CHF) 200 to 400 pg/mL: likely moderate CHF >400 pg/mL: likely moderate to severe CHF 27 Critical Result LACT:2.2 Called to [id number] at: 08:48:48 by:[id number] Read back by:[id number] [facility] Severe Sepsis and Septic Shock Management Bundle Measure requires all lactic acids initially measuring >2.0 mmol/L be repeated. 28 SEE RESULT BELOW Name: MER[facility] MON[facility] : [address]: Willy Hamilton MD Acct: [id number] Unit: [id number] AGE: 76 Location: [place] [address] Re01/06/17 SEX: F Status: ADM IN SPEC: [id number] DONALD: 01/06/17 [facility] DR: Glenn Rutledge MD REQ: [id number] RECD: 01/06/17 STATUS: RES OTHR DR: Jud Holland MD _ SOURCE: BLOOD,VENO SPDESC: ORDERED: Blood Cult COMMENTS: Patient is On Antibiotics? NO Procedure Result Reported Site Aerobic Culture Bottle Preliminary 01/07/17825 ML No Growth Day 1 Anaerobic Culture Bottle Preliminary 01/07/17825 ML No Growth Day 1 * ML - MAIN LAB ([facility]) . END OF REPORT * ML=Testing performed at Main Lab DEPARTMENT OF PATHOLOGY, [address] [place] [address] Nico Boucher M.D. Director [facility] # [id number] 29 Progressive normocytic anemia with thrombocytopenia noted. No schistocytes or blasts are identified. Additional studies as clinically warranted. Reviewed by Dr. Boucher 30 Because ethnic data is not always readily available, this report includes an eGFR for both -Americans and non- Americans. The National Kidney Disease Education Program (NKDEP) does not endorse the use of the MDRD equation for patients that are not between the ages of 18 and 70, are , have extremes of body size, muscle mass, or nutritional status, or are non- or non-. According to the National Kidney Foundation, irrespective of diagnosis, the stage of the disease is based on the level of kidney function: Stage Description GFR(mL/min/1.73 m(2)) 1 Kidney damage with normal or decreased GFR 90 2 Kidney damage with mild decrease in GFR 60-89 3 Moderate decrease in GFR 30-59 4 Severe decrease in GFR 15-29 5 Kidney failure <15 (or dialysis) 31 Pancytopenia with absolute neutropenia, normocytic anemia, and moderate thrombocytopenia. No evidence of a hemolytic process. Reviewed by Jenna Hodgson MD 32 SEE RESULT BELOW Name: MER[facility] MON[facility] : [address]: Mushtaq Clemente MD Acct: [id number] Unit: [id number] AGE: 76 Location: [address] Re11/07/16 SEX: F Status: ADM Ras SPEC: [id number] DONALD: 11/07/160625 SUBM DR: Mariano Durbin MD REQ: [id number] RECD: 11/07/16 STATUS: COMP [facility] DR: Jud Holland MD _ SOURCE: URINE [facility]: ORDERED: Urine Culture Procedure Result Reported Site Urine Culture Final 11/08/16- 851 ML No growth of clinically significant organisms * ML - MAIN LAB ([facility]) . END OF REPORT * ML=Testing performed at Main Lab DEPARTMENT OF PATHOLOGY, [address] [place] [address] Nico Boucher M.D. Director [facility] # [id number] 33 [facility] Severe Sepsis and Septic Shock Management Bundle Measure requires all lactic acids initially measuring >2.0 mmol/L be repeated. 34 Verbal to [id number] by [id number] at 0311 on 11/07/16. Results read back accurately. 35 Because ethnic data is not always readily available, this report includes an eGFR for both -Americans and non- Americans. The National Kidney Disease Education Program (NKDEP) does not endorse the use of the MDRD equation for patients that are not between the ages of 18 and 70, are , have extremes of body size, muscle mass, or nutritional status, or are non- or non-. According to the National Kidney Foundation, irrespective of diagnosis, the stage of the disease is based on the level of kidney function: Stage Description GFR(mL/min/1.73 m(2)) 1 Kidney damage with normal or decreased GFR 90 2 Kidney damage with mild decrease in GFR 60-89 3 Moderate decrease in GFR 30-59 4 Severe decrease in GFR 15-29 5 Kidney failure <15 (or dialysis) 36 [facility] Severe Sepsis and Septic Shock Management Bundle Measure requires all lactic acids initially measuring >2.0 mmol/L be repeated. 37 Because ethnic data is not always readily available, this report includes an eGFR for both -Americans and non- Americans. The National Kidney Disease Education Program (NKDEP) does not endorse the use of the MDRD equation for patients that are not between the ages of 18 and 70, are , have extremes of body size, muscle mass, or nutritional status, or are non- or non-. According to the National Kidney Foundation, irrespective of diagnosis, the stage of the disease is based on the level of kidney function: Stage Description GFR(mL/min/1.73 m(2)) 1 Kidney damage with normal or decreased GFR 90 2 Kidney damage with mild decrease in GFR 60-89 3 Moderate decrease in GFR 30-59 4 Severe decrease in GFR 15-29 5 Kidney failure <15 (or dialysis) 38 Acute inflammation: >10.00 39 Normal Range 180 to 914 Indeterminate Range 145 to 180 Deficient Range <145 40 >100 to <200 pg/mL: likely compensated congestive heart failure (CHF) 200 to 400 pg/mL: likely moderate CHF >400 pg/mL: likely moderate to severe CHF 41 Because ethnic data is not always readily available, this report includes an eGFR for both -Americans and non- Americans. The National Kidney Disease Education Program (NKDEP) does not endorse the use of the MDRD equation for patients that are not between the ages of 18 and 70, are , have extremes of body size, muscle mass, or nutritional status, or are non- or non-. According to the National Kidney Foundation, irrespective of diagnosis, the stage of the disease is based on the level of kidney function: Stage Description GFR(mL/min/1.73 m(2)) 1 Kidney damage with normal or decreased GFR 90 2 Kidney damage with mild decrease in GFR 60-89 3 Moderate decrease in GFR 30-59 4 Severe decrease in GFR 15-29 5 Kidney failure <15 (or dialysis) 42 Please note: The following may produce a false positive D Dimer test: - Rheumatoid factor greater than 60 IU/ml - Plasma hemoglobin greater than 0.05 gm/dl - Bilirubin greater than 50 mg/dl - Lipids greater than 1000 mg/dl - FDP greater than 20 ug/ml 43 [facility] Severe Sepsis and Septic Shock Management Bundle Measure requires all lactic acids initially measuring >2.0 mmol/L be repeated. 44 Therapeutic target for the treatment of diabetes Mellitus patients is <7% HBA1C, and in selective patients <6.0%.Please refer to [place] [employer] Diabetic care guidelines for further information. 45 Because ethnic data is not always readily available, this report includes an eGFR for both -Americans and non- Americans. The National Kidney Disease Education Program (NKDEP) does not endorse the use of the MDRD equation for patients that are not between the ages of 18 and 70, are , have extremes of body size, muscle mass, or nutritional status, or are non- or non-. According to the National Kidney Foundation, irrespective of diagnosis, the stage of the disease is based on the level of kidney function: Stage Description GFR(mL/min/1.73 m(2)) 1 Kidney damage with normal or decreased GFR 90 2 Kidney damage with mild decrease in GFR 60-89 3 Moderate decrease in GFR 30-59 4 Severe decrease in GFR 15-29 5 Kidney failure <15 (or dialysis) 46 Instrument used is My Luv My Life My Heartbeats DXI 600. The assay is a two-site immunoenzymatic "sandwich" assay. Do not interpret CA125 levels as absolute evidence of the presence or the absence of malignant disease. Use in conjunction with information from the clinical evaluation of the patient and other diagnostic procedures. Values obtained with different assay methods cannot be used interchangeably. 47 SEE RESULT BELOW Name: [facility] MON[facility] : [address]: Jud Holland MD Acct: [id number] Unit: [id number] AGE: 75 Location: [facility] Re04/26/16 SEX: F Status: REG REF SPEC: [id number] DONALD: 04/26/16-1358 [facility] DR: Jud Holland MD REQ: [id number] RECD: 04/27/161233 STATUS: COMP _ SOURCE: URINE SPDESC: ORDERED: Urine Culture Urine Source: Random Procedure Result Reported Site Urine Culture Final 04/29/16- 821 ML Organism 1 ESCHERICHIA COLI [place] Count >100,000 (Many) CFU/ML 1. ESCHERICHIA COLI M.I.C. RX --------- ------ Ampicillin >=32 R Cefazolin <=4 S Cefepime <=1 S Ceftriaxone <=1 S Ciprofloxacin <=0.25 S Gentamicin <=1 S Levofloxacin <=0.12 S Meropenem <=0.25 S Nitrofurantoin <=16 S Tetracycline <=1 S Pipercillin/Tazobactam <=4 S Trimethoprim/Sulfamethoxazole <=20 S Amoxicillin/Clavulanic Acid 8 S Aztreonam <=1 S Contact the Microbiology Department for any additional antibiotic reporting. * ML - MAIN LAB ([facility]) . END OF REPORT * ML=Testing performed at Main Lab DEPARTMENT OF PATHOLOGY, [address] [place] [address] Nico Boucher M.D. Director [facility] # [id number] 48 SEE RESULT BELOW Name: [facility] : [address]: Bernice Kerr NP Acct: [id number] Unit: [id number] AGE: 75 Location: [facility] Re03/01/16 SEX: F Status: REG REF SPEC: [id number] DONALD: 03/01/16-[address]: Bernice Kerr NP REQ: [id number] RECD: 03/01/16 STATUS: COMP _ SOURCE: URINE SPDESC: ORDERED: Urine Culture COMMENTS: [id number] Urine Source: Random Procedure Result Reported Site Urine Culture Final 03/03/16- 905 ML Few Enterobacteriacae; possible contamination. * ML - MAIN LAB ([facility]) . END OF REPORT * ML=Testing performed at Main Lab DEPARTMENT OF PATHOLOGY, [address] [place] [address] Nico Boucher M.D. Director [facility] # [id number] 49 Not diagnostic. Supplemental testing ordered by reflex. Test Performed by: [place] [address] Actuarial Associate: Dorian Pascual II, M.D., Ph.D. 50 RESULT: p66, p41, p30, p23, p18, 51 Consistent with active or previous infection for B. burgdorferi. IgM blot criteria is of diagnostic utility only during the first 4 weeks of early Lyme disease. ADDITIONAL INFORMATION CDC criteria require >=5 bands for IgG or >=2 bands for IgM for the Immunoblot to be considered positive. Bands (e.g.,p41) may be detected in patients without Lyme disease, and patterns not meeting the CDC criteria should be interpreted with caution. Immunoblot should be ordered only on specimens that are positive or equivocal by a FDA-licensed Lyme disease antibody screening test (e.g., EIA). Test Performed by: [place] [id number] Actuarial Associate: Dorian Pascual II, M.D., Ph.D. 52 Desirable <150 Borderline high 150-199 High 200-499 Very High >500 53 Desirable <200 Borderline high 200-239 High >239 54 Low <40 Desirable: 40-60 High: >60 55 Desirable: <100 mg/dL Near Optimal: 100-129 mg/dL Borderline High: 130-159 mg/dL High: 160-189 mg/dL Very High: >189 mg/dL 56 Because ethnic data is not always readily available, this report includes an eGFR for both -Americans and non- Americans. The National Kidney Disease Education Program (NKDEP) does not endorse the use of the MDRD equation for patients that are not between the ages of 18 and 70, are , have extremes of body size, muscle mass, or nutritional status, or are non- or non-. According to the National Kidney Foundation, irrespective of diagnosis, the stage of the disease is based on the level of kidney function: Stage Description GFR(mL/min/1.73 m(2)) 1 Kidney damage with normal or decreased GFR 90 2 Kidney damage with mild decrease in GFR 60-89 3 Moderate decrease in GFR 30-59 4 Severe decrease in GFR 15-29 5 Kidney failure <15 (or dialysis) 57 Consistent with early infection with Borrelia burgdorferi. A new serum specimen should be submitted in 14-21 days to demonstrate seroconversion of IgG. IgM blot criteria is of diagnostic utility only during the first 4 weeks of early Lyme disease. ADDITIONAL INFORMATION CDC criteria require >=5 bands for IgG or >=2 bands for IgM for the Immunoblot to be considered positive. Bands (e.g.,p41) may be detected in patients without Lyme disease, and patterns not meeting the CDC criteria should be interpreted with caution. Immunoblot should be ordered only on specimens that are positive or equivocal by a FDA-licensed Lyme disease antibody screening test (e.g., EIA). Test Performed by: [place] [address] Actuarial Associate: Dorian Pascual II, M.D., Ph.D. 58 Not diagnostic. Supplemental testing ordered by reflex. Test Performed by: [address] [address] Actuarial Associate: Dorian Pascual II, M.D., Ph.D. 59 Acute inflammation: >10.00 Procedures Date CPT Code Description Status 05/23/2017 81972 EKG Tracing & Interpretation Completed 02/05/2017 91180 EKG Tracing & Interpretation Completed 01/07/2017 44751 ECHO Transthorasic Realtime 2D W Doppler & Color Completed Flow Hosp 01/07/2017 44358 EKG, Interpretation Only Completed 10/18/2016 46790 Nerve Conduction 05-06 Studies Completed 10/18/2016 86153 Needle Electromyography Complete, Five Or More Muscles Completed Studied 05/28/2016 11609 EKG Tracing & Interpretation Completed 05/10/2016 50619 ECHO Transthoracic, Real-Time 2D With Doppler And Color Completed Flow 01/29/2011 Diabetic Foot Exam Completed 02/09/2010 Bone Mineral Density Test Completed 03/14/2009 35849 EKG Tracing & Interpretation Completed 09/27/2008 84173 Holter Monitor Review (24 hr)dr gross & dat Completed only 09/22/2008 72806 EKG Tracing & Interpretation Completed 10/09/2007 Mammogram Completed 07/22/2007 24701 EKG Tracing & Interpretation Completed 07/22/2007 65938 EKG Tracing & Interpretation Completed Encounters Type Date Location Provider CPT E/M Dx Office Visit 05/09/2017 11:50a [facility] Jud Holland M.D. 34486 Z23 [place] Z12.11 Z12.31 M85.89 C82.90 Z71.89 Z92.21 Office Visit 02/25/2017 2:49p [facility], 93269 R50.81 Assoc, Hospitalists Renata D64.9 D70.9 D69.6 [facility] 25874 R50.81 [facility]oc, Hospitalists Renata D64.9 D70.9 D69.6 Office Visit 02/23/2017 2:48p [facility], 77831 R50.81 Assoc, Hospitalgibran Yanez D64.9 D70.9 D69.6 Office Visit 02/22/2017 2:47p [facility] [place]ot [place], 01361 R50.81 Hospitalists Renata D64.9 D70.9 D69.6 Office Visit 02/21/2017 2:47p [facility]vita [place], 71360 R50.81 Hospitalists Renata D70.9 D64.9 D69.6 Office Visit 02/20/2017 2:46p [facility] Margot [place], 96797 R50.81 Hospitalists Renata D70.9 D64.9 D69.6 Office Visit 02/19/2017 2:45p [facility] Amber Jones, 04598 R50.81 Assoc,pc Hospitalists [employer] D70.9 D64.9 D69.6 Office Visit 02/16/2017 3:52p [facility] Meenu Mendiola, 15758 I48.0 Hospitalists Renata R74.8 D72.829 Office Visit 02/05/2017 2:00p [facility] Brendan Hernandez M.D. 22403 I48.0 C82.98 D61.810 J90 Office Visit 01/11/2017 3:44p [facility] Meenu Maury, 84252 I48.91 Assoc, Hospitalists Renata C82.98 D61.810 D69.6 Office Visit 01/10/2017 3:43p [facility] Meenu Chenhn, 21518 I48.91 Assoc, Hospitalists Renata C82.98 D61.810 D69.6 Office Visit 01/10/2017 4:26p [facility] Brendan Hernandez M.D. 25477 I48.0 C82.98 J90 I30.9 D70.9 D69.6 Office Visit 01/09/2017 3:43p [facility] [address] I48.91 Hospitalists C82.98 D69.6 D61.810 Office Visit 01/08/2017 3:42p [facility] [address] I48.91 Hospitalists C82.98 D61.810 J90 Office Visit 01/07/2017 3:42p [facility] [address] I48.91 Hospitalists D61.810 C82.98 J90 Office Visit 01/06/2017 3:41p [facility] Charlotte Adler, 52424 C82.98 Hospitalists M.DBrittani D64.81 D69.6 I48.91 Office Visit 11/08/2016 1:55p [facility], Mushtaq Clemente, 10789 R11.2 Hospitalists M.DBrittani C82.90 D61.818 Office Visit 11/07/2016 1:55p [facility], Sly Benton M.D. 13524 R11.2 Hospitalists C82.90 D61.818 Office Visit 10/19/2016 10:25a [facility] José Miguel Marcano, 06715 G60.9 MD Office Visit 10/19/2016 8:11a [facility], Riky [place], 61110 C82.93 Hospitalists M.DBrittani R18.0 R55 N13.30 Office Visit 10/18/2016 10:24a [facility] [place] [address] G60.9 R55 R26.89 Office Visit 10/18/2016 8:10a [facility], Riky [place], 85773 C82.93 Hospitalists M.DBrittani R55 N13.30 R18.0 Office Visit 10/17/2016 10:24a [facility] [place] [address] R26.89 R42 H53.8 Office Visit 10/17/2016 8:09a [facility], Riky [place], 64613 C82.93 Hospitalists M.DBrittani R18.0 N13.30 R55 Office Visit 09/27/2016 10:40a [facility] Jud Holland, 00079 R19.09 - Sarah Yanez N13.39 Office Visit 09/25/2016 1:00p [facility] Jud Holland M.D. 93297 R14.0 - Sarah F43.0 R19.09 N13.30 R18.8 Office Visit 05/28/2016 7:30a [facility] Jud oHlland 28659 Z00.00 - Sarah Yanez I10 M85.89 R05 R73.01 N39.3 Z12.39 L57.0 Office Visit 04/26/2016 1:20p [facility] Jud Holland M.D. 02197 N39.0 - [place] R01.1 R73.01 Office Visit 03/01/2016 11:40a [facility] Bernice Kerr, N.P. 18696 R35.0 - [place] N39.0 Office Visit 02/21/2016 4:00p [facility] - Glenn [place], 12110 R21 Sarah Yanez R73.01 Z23 Office Visit 12/06/2015 8:30a [facility] Isaac Hammonds, 11165 A69.20 Infectious Diseases Renata G47.01 Office Visit 12/05/2015 10:20a [facility] Glenn [place], 91013 A69.20 - Sarah Yanez Z13.220 Z13.1 Office Visit 11/29/2015 10:00a [facility] Glenn [place], 85142 R21 - Sarah Yanez Office Visit 11/03/2015 4:20p [facility] Clayton Gonzalez, YOSVANY 22319 L03.114 - [place] Office Visit 11/05/2011 11:20a [facility] Bernice Kerr, N.P. 59924 719.47 - [place] V04.81 Office Visit 01/26/2011 1:20p DO Not Use [employer] [facility] Bernice Kerr, 88779 729.4 N.P. Office Visit 02/28/2010 11:30a DO Not Use [facility] Katty Alegria M.D., 52322 272.0 FACP 790.21 733.90 Office Visit 02/08/2010 9:30a DO Not Use [facility] Katty Alegria 56494 724.2 M.D., FACP 733.90 272.0 401.1 v04.81 Office Visit 05/12/2009 9:45a DO Not Use [facility] Katty Alegria, 36327 272.4 M.D., FACP 719.45 Office Visit 04/14/2009 9:00a DO Not Use [facility] Katty Alegria 39974 272.4 M.D., FACP 401.1 Office Visit 03/14/2009 10:45a DO Not Use [facility] Katty Airam, 92697 785.1 M.D., FACP 272.4 300.00 311 V04.81 Office Visit 09/22/2008 11:45a DO Not Use [facility] Katty Airam, 64870 785.0 M.D., FACP 785.1 719.47 Office Visit 11/20/2007 1:45p DO Not Use [employer] [employer] [facility] Katty Airam, 43603 272.4 M.D., FACP Office Visit 07/22/2007 11:15a DO Not Use [employer] [facility] Katty Airam, 16347 V72.31 M.D., FACP 272.0 401.1 Office Visit 08/01/2006 1:30p DO Not Use [employer] [facility] Katty Airam, 78768 462 M.D., FACP Office Visit 05/21/2006 12:00p DO Not Use [employer] [facility] Katty Airam, 16591 372.30 M.D., FACP 465.9 Office Visit 04/09/2006 2:15p DO Not Use [employer] [facility] Katty Airam, 93661 289.3 M.D., FACP Office Visit 02/26/2006 2:30p DO Not Use [employer] [facility] Katty Airam, 25183 401.1 M.D., FACP V04.81 Office Visit 12/11/2005 9:45a DO Not Use [employer] [facility] Katty Airam, 92610 272.0 M.D., FACP 300.00 Plan of Care Future Appointment(s):07/04/2017 11:50 am - Jud Holland M.D. at [facility] - [place]/15/2018 - Brendan Hernandez M.D.E83.42 GmbbkarinekbdjJ84.0 Paroxysmal atrial fibrillationFollow up:ov 6 m
--- OUTSIDE RECORDS SUMMARY | 2017-06-19 12:56 | XMS REPORT ---
:1940 External Reference #:[id number] Author Organization [facility] Address [address] [address] Phone [phone] Care Team Providers Name Role Phone Jud Holland MD Primary Care Physician Unavailable Payers Type Date Identification Numbers Payment Subscriber Provider Health Maintenance Expires: Policy Number: Medicare Blue [facility] [place] 12/10/2011 [id number] Ppo PayID: [id number] [address] [address] PILI Olson [address] Health Maintenance Policy Number: Medicare Blue Ppo [facility] [place] [id number] Group Number: [id number] [address] [address] PayID: [id number] PILI Olson [address] Problems Date Description Provider Status Onset: Paroxysmal [...] Onset: 09/25/2016 Calculus of kidney and ureter Jud Holland M.D. Active Note: 1.4 cm Onset: 09/26/2016 Retroperitoneal mass Jud Holland M.D. 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 Olivares Onset: 09/25/2016 Pelvic mass Jud Holland M.D. Inactive Inactive: 10/10/2016 Family History Date Family Member(s) Problem(s) Comments General adopted General No Current Problems Mother Stroke Siblings 2 2 half sisters she has not met. 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 Cigarette Use Never Smoked Cigarettes ETOH Use Occasionally consumes alcohol Smoking Patient has never smoked Recreational Drug Use Denies Drug Use Has a prescription for medicinal marijuana-but does not use currently 02/05/17 Daily Caffeine Comsumes on average 1 cup of decaff coffee per day Exercise Type/Frequency Does not exercise General Hx Text Lives in [place], no time in the yard Allergies, Adverse Reactions, Alerts Date Description Reaction Status Severity Comments 04/13/2009 Sulfa INTOLERANCE-GI UPSET active Moderate 02/05/2017 Rituximab active Medications Medication Date Status Form Strength Qnty SIG Indications Ordering Provider Magnesium 03/06/ Active Tablets 250mg 90tabs 1 by mouth Brendan Oxide 2017 every other F. day Renata Hernandez Digoxin 01/28/ Active Tablets 125mcg 120tab 2 tabs by Brendan 2016 s mouth every F. m,w,f and 1 Mauser, tab every M.D. other day of the week Vitamin B12 01/22/ Active Tablets ER 1000mcg once a day Jud Holland M.D. Multi For Her 01/22/ Active Tablets once a day Jud Holland M.D. Potassium / Active Tablets ER 20Meq 90tabs takes Brendan Chloride ER 0000 occasionally F. ---1 by Mauser, mouth every M.D. day Medical / Active 2 puffs CTB Unknown Marijuana 0000 and THC at night in [place] Magnesium 03/06/ Hx Tablets 250mg 90tabs 1 by mouth Brendan Oxide 2017 - every day F. 03/06/ Myla Hernandez M.D. Magnesium 03/06/ Hx Tablets 250mg 90tabs 1 by mouth Brendan Oxide -MG 2017 - every day F. Supplement 03/06/ Mauser, 2017 M.D. Keflex 02/18/ Hx Capsules 500mg 10caps 1 by mouth Jud 2017 - twice a day Holland, 02/23/ x 5 days M.D. 2017 Magnesium 02/08/ Hx Tablets 250mg 30tabs 1 by mouth Brendan Oxide -MG 2017 - every day F. Supplement Mary2016 M.D. Magnesium 02/08/ Hx Tablets 250mg 30tabs 1 by mouth Brendan Oxide 2017 - every day F. Mary 2016 M.D. No Active 01/22/ Hx Unknown Medications 2017 - 2016 Digoxin 01/13/ Hx Tablets 125mcg 30tabs 1 by mouth Brendan 2017 - daily F. ovidio2016 M.D. No Active 09/25/ Hx Unknown Medications 2016 - 2016 Cipro 04/26/ Hx Tablets 500mg 14tabs 1 by mouth N39.0 Jud 2016 - twice a day Skyler, 05/27/ for 7 days M.D. 2016 Cipro 03/01/ Hx Tablets 250mg 14tabs Did Not Take Bernice 2015 - Varn, 04/26/ N.P. 2017 Cephalexin 11/02/ Hx Capsules 500mg 21caps take one L03.114 Clayton 2015 - capsule Lisa, HYDROELECTRIC PLANT TECHNICIAN 11/09/ every 8 2016 hours for 7 days Ventolin HFA 02/25/ Hx Aerosol 108(90Base 1inhal 1 to 2 Bernice 2013 - ) mcg/Act er inhalations Varn, 10/21/ every 4 N.P. 2015 hours as needed Zostavax 11/05/ Hx Solution [id number]/0 1units 1 dose s/c Katty 2011 - Rec .65ML Airam, 02/20/ M.D., 2016 FACP Crutches 01/26/ Hx 1Pair Use as 729.4 Katty 2010 - needed for Airam, 10/21/ plantar M.D., 2015 fasciitis FACP Simvastatin 02/28/ Hx Tablets 20mg 90tabs 1 by mouth Katty 2009 - at bedtime Airam, 01/26/ M.D., 2010 FACP Physical 02/08/ Hx Back Pain Katty Therapy 2009 - Airam, 02/28/ M.D., 2009 FACP Atenolol [...] CPT Code Status Date Vaccine Lot # [id number] Given 05/09/2017 Pneumococcal Conjugate Vaccine 13 Valent For [id number] Intramuscular Use 42109 Given 04/11/2017 Influenza Virus Vaccine, Quadrivalent, Split, Preservative Free 93902 Given 02/21/2016 Influenza Virus Vaccine, Quadrivalent, Split, [id number] Preservative Free Q2037 Given 10/14/2013 Fluvirin Im 3Yrs And Older 91322 Given 05/20/2013 Tdap - Tetanus/Diptheria/Acellular Pertussis Q2035 Given 10/23/2012 Afluria Vaccine 33313 Given 10/23/2012 Zoster (Zostavax) Q2038 Given 11/05/2011 Fluzone Vaccine [id number] 51073 Given 02/08/2010 Influenza Virus 3Yrs & Over 59087 Given 03/14/2009 Influenza Virus Vaccine, Pandemic Formulation 55846 Given 03/14/2009 Influenza Virus 3Yrs & Over 01793 Given 03/14/2009 Administration Swine Flu Shot 02661 Given 02/26/2006 Influenza Virus 3Yrs & Over Vital Signs Date Vital Result Comment 05/23/2017 Weight 144.00 lb Heart Rate 95 [...] Test Date Test Result H/L Range Note Comp Metabolic Panel 05/22/2017 Sodium 139 mmol/L [...] Color Yellow Urine Appearance Clear Urine Specific Casa 1.003 Low 1.010-1.030 Urine pH 7.0 5-9 [...] finding 02/07/2017 Digoxin 0.5 ng/ml Low 0.8-2.0 , Magnesium 1.7 mg/dL Low 1.9-2.7 , CBC Auto Diff 02/04/2017 White Blood Count [...] Color Yellow Urine Appearance Clear Urine Specific Casa 1.014 1.010-1.030 Urine pH 6.0 5-9 Urine [...] Color Yellow Urine Appearance Clear Urine Specific Casa 1.048 High 1.010-1.030 Urine pH 5.0 5-9 [...] 47 Sensitivities Ua Routine 04/26/2016 Ua Specific Casa 1.015 Ua PH 5 Ua Color cloudy Ua Appera red in color Ua WBC ++ Ua Protein +++ Ua Glucose noraml Ua Ketones negative Ua Bilirubin negative Ua Urobilinogen normal Ua Nitrite positive Ua Occult Blood large Urine Culture And 03/01/2016 Urine Culture SEE RESULT BELOW 48 Sensitivities Ua Routine 03/01/2016 Ua Specific Casa 1.020 Ua PH 5 Ua Color yellow [...] Non- 60.4 >60 Egfr 77.7 >60 56 Laboratory test finding 11/27/2015 C Reactive Protein 5.03 mg/L High < 5.00 57 Lyme Western Blot 11/27/2015 Lyme Disease IgG Ab WB Negative Negative Lyme Disease IgG Bands Present p66, p41, p23, kDa Lyme Disease IgM Ab WB Positive Negative Lyme Disease IgM Bands Present p41, p23, kDa Lyme Disease Interpretation See Comment 58 Laboratory test finding 11/27/2015 Erythrocyte Sed Rate 29 mm/Hr 0-40 Lyme Disease Serology Positive Negative 59 CBC Auto Diff 11/27/2015 White Blood Count [...] 0-2 Nucleated Red Blood Cells % 0.1 1 Because ethnic data is not always [...] [address]: Margot Sharif MD Acct: [id number] Unit: [id number] AGE: 76 Location: [place] [address] Re02/19/17 SEX: F Status: ADM IN SPEC: [id number] DONALD: 02/19/17 [facility] DR: Jasen Carolina MD REQ: [id number] RECD: 02/19/17 STATUS: RES OTHR DR: Jud Holland MD _ SOURCE: BLOOD,VENO SPDESC: ORDERED: Blood Cult COMMENTS: COLLECTED FROM LAC Procedure Result Reported Site Aerobic Culture Bottle Preliminary 02/20/17- 5 ML No Growth Day 1 Anaerobic Culture Bottle Preliminary 02/20/17- 1425 ML No Growth Day 1 * ML [facility]) . END OF REPORT * ML=Testing performed at Main Lab DEPARTMENT OF PATHOLOGY, [address] [place] [address] Nico Boucher M.D. Director [facility] # [id number] 5 Differential performed on buffy coat. 6 Verbal to [id number] by [id number] at 1534 on 02/19/17. Results read back accurately. 7 Result TnIDx:0.07 Called to [id number] at: 14:46:42 by:[id number] Read back by: [id number] 8 Because ethnic data is not always [...] in INR reference range effective 17. 10 [facility] Severe Sepsis and Septic Shock Management Bundle Measure requires all lactic acids initially measuring >2.0 mmol/L be repeated. 11 [facility] Severe Sepsis and Septic Shock Management [...] (or dialysis) 14 Result TnIDx:0.07 Called to [id number] at: 14:50:10 by:[id number] Read back by: [id number] 15 [facility] Severe Sepsis and Septic Shock Management [...] (or dialysis) 18 Result TnIDx:0.07 Called to [id number] at: 10:48:09 by:[id number] Read back by: [id number] 19 Leukocytosis with absolute neutrophilia and moderate thrombocytopenia noted. Reactive/inflammatory process is favored. Additional studies should be considered as clinically warranted. 20 [id number] 21 [id number] 22 [id number] 23 Consistent with previous results on 01/28/17. [...] CHF 27 Critical Result LACT:2.2 Called to [id number] at: 08:48:48 by:[id number] Read back by:[email or web address] [facility] Severe Sepsis and Septic Shock Management Bundle Measure requires all lactic acids initially measuring >2.0 mmol/L be repeated. 28 SEE RESULT BELOW Name: [facility] : [address]: Willy Hamilton MD Acct: [id number] Unit: [id number] AGE: 76 Location: [place] [address] Re01/06/17 SEX: F Status: ADM IN SPEC: [id number] DONALD: 01/06/17 [facility] DR: Glenn Rutledge MD REQ: [id number] RECD: 01/06/17 STATUS: RES OTHR DR: Jud Holland MD _ SOURCE: BLOOD,VENO SPDESC: ORDERED: Blood Cult COMMENTS: Patient is On Antibiotics? NO Procedure Result Reported Site Aerobic Culture Bottle Preliminary 01/07/17825 ML No Growth Day 1 Anaerobic Culture Bottle Preliminary 01/07/17825 ML No Growth Day 1 * ML - MAIN LAB ([facility]) . END OF REPORT * ML=Testing performed at Main Lab DEPARTMENT OF PATHOLOGY, [address] [place] [address] Nico Boucher M.D. Director [facility] # [id number] 29 Progressive normocytic anemia with thrombocytopenia noted. [...] Hodgson MD 32 SEE RESULT BELOW Name: [facility] : [address]: Mushtaq Clemente MD Acct: [id number] Unit: [id number] AGE: 76 Location: [place] [address] Re11/07/16 SEX: F Status: ADM Ras SPEC: [id number] DONALD: 11/07/16 [facility] DR: Mariano Durbin MD REQ: [id number] RECD: 11/07/16 STATUS: COMP OLVINHR DR: Jud Holland MD _ SOURCE: URINE SPDESC: ORDERED: Urine Culture Procedure Result Reported Site Urine Culture Final 11/08/16- 0852 ML No growth of clinically significant organisms * ML - MAIN LAB ([facility]) . END OF REPORT * ML=Testing performed at Main Lab DEPARTMENT OF PATHOLOGY, [address] [place] [address] Nico Boucher M.D. Director [facility] # [id number] 33 [facility] Severe Sepsis and Septic Shock Management Bundle Measure requires all lactic acids initially measuring >2.0 mmol/L be repeated. 34 Verbal to [id number] by [id number] at 0311 on 11/07/16. Results read back [...] 5 Kidney failure <15 (or dialysis) 36 [facility] Severe Sepsis and Septic Shock Management [...] - FDP greater than 20 ug/ml 43 [facility] Severe Sepsis and Septic Shock Management Bundle Measure requires all lactic acids initially measuring >2.0 mmol/L be repeated. 44 Therapeutic target for the treatment of diabetes Mellitus patients is <7% HBA1C, and in selective patients <6.0%.Please refer to [place] [employer] Diabetic care guidelines for further [...] <15 (or dialysis) 46 Instrument used is [employer] DXI 600. The assay is a two-site [...] [address]: Jud Holland MD Acct: [id number] Unit: [id number] AGE: 75 Location: [facility] Re04/26/16 SEX: F Status: REG REF SPEC: [id number] DONALD: 04/26/16-1358 [facility] DR: Jud Holland MD REQ: [id number] RECD: 04/27/16 STATUS: COMP _ SOURCE: URINE SPDESC: ORDERED: Urine Culture Urine Source: Random Procedure Result Reported Site Urine Culture Final 04/29/16- 821 ML Organism 1 ESCHERICHIA COLI [place] Count >100,000 (Many) CFU/ML 1. ESCHERICHIA [...] antibiotic reporting. * ML - MAIN LAB ([facility]) . END OF REPORT * ML=Testing performed at Main Lab DEPARTMENT OF PATHOLOGY, [address] [place] [address] Nico Boucher M.D. Director [facility] # [id number] 48 SEE RESULT BELOW Name: [facility] : [address]: Bernice Kerr NP Acct: [id number] Unit: [id number] AGE: 75 Location: [facility] Re03/01/16 SEX: F Status: REG REF SPEC: [id number] DONALD: 03/01/16-[address]: Bernice Kerr NP REQ: [id number] RECD: 03/01/16 STATUS: COMP _ SOURCE: URINE SPDESC: ORDERED: Urine Culture COMMENTS: [id number] Urine Source: Random Procedure Result Reported Site Urine Culture Final 03/03/16- 905 ML Few Enterobacteriacae; possible contamination. * ML - MAIN LAB ([facility]) . END OF REPORT * ML=Testing performed at Main Lab DEPARTMENT OF PATHOLOGY, [address] [place] [address] Nico Boucher M.D. Director [facility] # [id number] 49 Not diagnostic. Supplemental testing ordered by reflex. Test Performed by: [place] [address] Electrical Experimental Mechanic: Dorian Pascual II, M.D., Ph.D. 50 RESULT: [...] screening test (e.g., EIA). Test Performed by: [place] [address] Electrical Experimental Mechanic: Dorian Pascual II, M.D., Ph.D. 52 Desirable [...] 5 Kidney failure <15 (or dialysis) 57 Acute inflammation: >10.00 58 Consistent with early infection with Borrelia burgdorferi. [...] screening test (e.g., EIA). Test Performed by: [place] [address] Electrical Experimental Mechanic: Dorian Pascual II, M.D., Ph.D. 59 Not diagnostic. Supplemental testing ordered by reflex. Test Performed by: [place] [address] Electrical Experimental Mechanic: Dorian Pascual II, M.D., Ph.D. Procedures Date CPT Code Description Status 02/05/2017 09099 EKG Tracing & Interpretation Completed 01/07/2017 17373 ECHO Transthorasic Realtime 2D W Doppler & Color Completed Flow [facility] 01/07/2017 79949 EKG, Interpretation Only Completed 10/18/2016 22527 Nerve Conduction 05-06 Studies Completed 10/18/2016 56787 Needle Electromyography Complete, Five Or More Muscles Completed Studied 05/28/2016 12427 EKG Tracing & Interpretation Completed 05/10/2016 17039 ECHO Transthoracic, Real-Time 2D With Doppler And Color Completed Flow 01/29/2011 Diabetic Foot Exam Completed 02/09/2010 Bone Mineral Density Test Completed 03/14/2009 42176 EKG Tracing & Interpretation Completed 09/27/2008 08331 Holter Monitor Review (24 hr)dr review & interp Completed only 09/22/2008 56650 EKG Tracing & Interpretation Completed 10/09/2007 Mammogram Completed 07/22/2007 66088 EKG Tracing & Interpretation Completed 07/22/2007 13492 EKG Tracing & Interpretation Completed Encounters Type Date Location Provider CPT E/M Dx Office Visit 05/09/2017 11:50a [facility] Jud Holland M.D. 23310 Z23 - [place] Z12.11 Z12.31 M85.89 C82.90 Z71.89 Z92.21 Office Visit 02/25/2017 2:49p [facility] Bryn, [address] R50.81 Assoc,pc Hospitalists MTalib D64.9 D70.9 D69.6 Office Visit 02/24/2017 2:49p [facility] Mushtaq Clemente, 67054 R50.81 Assoc,pc Hospitalists Renata D64.9 D70.9 D69.6 Office Visit 02/23/2017 2:48p [facility] Mushtaq Clemente, 39999 R50.81 Assoc,pc Hospitalists Renata D64.9 D70.9 D69.6 Office Visit 02/22/2017 2:47p [facility] Assoc, Margot Spaulding, 51781 R50.81 Hospitalists MTalib D64.9 D70.9 D69.6 Office Visit 02/21/2017 2:47p [facility] Assoc, Margot Spaulding, 71837 R50.81 Hospitalists MBrittaniDBrittani D70.9 D64.9 D69.6 Office Visit 02/20/2017 2:46p [facility] Assoc, Margot Spaulding, 19310 R50.81 Hospitalists M.DBrittani D70.9 D64.9 D69.6 Office Visit 02/19/2017 2:45p [facility] Amber Jones, 43239 R50.81 Assoc,pc Hospitalists HYDROELECTRIC PLANT TECHNICIAN D70.9 D64.9 D69.6 Office Visit 02/16/2017 3:52p [facility] Assoc, Meenu Mendiola, 71753 I48.0 Hospitalists M.Abe R74.8 D72.829 Office Visit 02/05/2017 2:00p [facility] Brendan Hernandez M.D. 60477 I48.0 C82.98 D61.810 J90 Office Visit 01/11/2017 3:44p [facility] Meenu Maury, 10770 I48.91 Assoc,pc Hospitalists Renata C82.98 D61.810 D69.6 Office Visit 01/10/2017 3:43p [facility] Meenu Maury, 61050 I48.91 Assoc, Hospitalists Renata C82.98 D61.810 D69.6 Office Visit 01/10/2017 4:26p [facility] Brendan Hernandez M.D. 85035 I48.0 C82.98 J90 I30.9 D70.9 D69.6 Office Visit 01/09/2017 3:43p [facility], [place] [address] I48.91 Hospitalists C82.98 D69.6 D61.810 Office Visit 01/08/2017 3:42p [facility] [address] I48.91 Hospitalists C82.98 D61.810 J90 Office Visit 01/07/2017 3:42p [facility] [address] I48.91 Hospitalists D61.810 C82.98 J90 Office Visit 01/06/2017 3:41p [facility], Charlotte Adler, 09991 C82.98 Hospitalists Renata D64.81 D69.6 I48.91 Office Visit 11/08/2016 1:55p [facility] Mushtaq Clemente, 11766 R11.2 Hospitalists Renata C82.90 D61.818 Office Visit 11/07/2016 1:55p [facility], Sly Benton M.D. 26167 R11.2 Hospitalists C82.90 D61.818 Office Visit 10/19/2016 10:25a [facility] José Miguel Marcano, 95873 G60.9 MD Office Visit 10/19/2016 8:11a [facility] 68593 C82.93 Hospitalists M.D. R18.0 R55 N13.30 Office Visit 10/18/2016 10:24a [facility] [place] [address] G60.9 R55 R26.89 Office Visit 10/18/2016 8:10a [facility] 807[address] C82.93 Hospitalists M.D. R55 N13.30 R18.0 Office Visit 10/17/2016 10:24a [facility] [place] [address] R26.89 R42 H53.8 Office Visit 10/17/2016 8:09a [facility] 74560 C82.93 Hospitalists M.D. R18.0 N13.30 R55 Office Visit 09/27/2016 10:40a [facility] Jud Holland, 33575 R19.09 - Sarah Yanez N13.39 Office Visit 09/25/2016 1:00p [facility] Jud Holland M.D. 25291 R14.0 - Sarah F43.0 R19.09 N13.30 R18.8 Office Visit 05/28/2016 7:30a [facility] Jud Holland, 42076 Z00.00 - Sarah Yanez I10 M85.89 R05 R73.01 N39.3 Z12.39 L57.0 Office Visit 04/26/2016 1:20p [facility] Jud Holland M.D. 00108 N39.0 - Sarah R01.1 R73.01 Office Visit 03/01/2016 11:40a [facility] Bernice Kerr, N.PBrittani 60254 R35.0 - Christa N39.0 Office Visit 02/21/2016 4:00p [facility] - Glenn Charlton, 78585 R21 Sarah Yanez R73.01 Z23 Office Visit 12/06/2015 8:30a [facility] sIaac Hammonds, 64675 A69.20 Infectious Diseases Renata G47.01 Office Visit 12/05/2015 10:20a [facility] Glenn Charlton, 45481 A69.20 - Sarah Yanez Z13.220 Z13.1 Office Visit 11/29/2015 10:00a [facility] Glenn Charlton, 73750 R21 - Sarah Yanez Office Visit 11/03/2015 4:20p [facility] Clayton Lisa, HYDROELECTRIC PLANT TECHNICIAN 87956 L03.114 - [place] Office Visit 11/05/2011 11:20a [facility] Bernice Kerr, N.P. 16179 719.47 - [place] V04.81 Office Visit 01/26/2011 1:20p DO Not Use [facility] Bernice Kerr, 55297 729.4 N.P. Office Visit 02/28/2010 11:30a DO Not Use [facility] Katty Alegria M.D., 90130 272.0 FACP 790.21 733.90 Office Visit 02/08/2010 9:30a DO Not Use [facility] Katty Airam, 14636 724.2 M.D., FACP 733.90 272.0 401.1 v04.81 Office Visit 05/12/2009 9:45a DO Not Use [facility] Katty Airam, 78755 272.4 M.D., FACP 719.45 Office Visit 04/14/2009 9:00a DO Not Use [facility] Katty Airam, 04176 272.4 M.D., FACP 401.1 Office Visit 03/14/2009 10:45a DO Not Use [facility] Katty Airam, 47319 785.1 M.D., FACP 272.4 300.00 311 V04.81 Office Visit 09/22/2008 11:45a DO Not Use [facility] Katty Airam, 36598 785.0 M.D., FACP 785.1 719.47 Office Visit 11/20/2007 1:45p DO Not Use [facility] Katty Airam, 20313 272.4 M.D., FACP Office Visit 07/22/2007 11:15a DO Not Use [facility] Katty Airam, 03472 V72.31 M.D., FACP 272.0 401.1 Office Visit 08/01/2006 1:30p DO Not Use [facility] Katty Airam, 20826 462 M.D., FACP Office Visit 05/21/2006 12:00p DO Not Use [facility] Katty Airam, 97366 372.30 M.D., FACP 465.9 Office Visit 04/09/2006 2:15p DO Not Use [facility] Katty Airam, 82540 289.3 M.D., FACP Office Visit 02/26/2006 2:30p DO Not Use [facility] Katty Airam, 62134 401.1 M.D., FACP V04.81 Office Visit 12/11/2005 9:45a DO Not Use [facility] Katty Airam, 47844 272.0 M.D., FACP 300.00 Plan of Care Future Appointment(s):07/04/2017 11:50 am - Jud Holland M.D. at [facility] - Jzumdxjza02/15/2018 - Jud Holland M.D.F43.0 Acute stress reactionComments:I did recommend counselling that you are already seeing which will be tuaxzmeK52.02 Adjustment insomniaComments:I think you can try melatonin at least 2 hrs before your sleep time, go to bed when you really are sleepy , try meditation, /yoga , we discussed there are sleep aids available if the need rmytulU11.42 HypomagnesemiaNew Labs:MagnesiumComments:start the magnesium once a dayR73.9 Hyperglycemia, unspecifiedComments:we discussed your sugar was high so I would suggest repeating it in 4 wks again and drinks lots of waterFollow up:after 4 wks
[2017-06-19 13:11] VITALS: BP 107/60
--- NOTE | 2017-06-19 14:44 | UC ---
Allergic Reaction HPI - HPI Summary HPI Summary: 46 yo WF h/o follicular lymphoma s/p 6 cycles of chemo last February now in remission took 4 tabs of amoxicillin yesterday at noon and now feels mild voice change, laryngeal fullness and mild anterior tongue swelling. Never had this type of reaction in the past and not known to be allergic to amoxicillin but states that her dentist "told her to take it 4 at ONE time as a BOLUS" - History of Current Complaint Chief Complaint: UCAllergicReaction Stated Complaint: POSSIBLE ALLERGIC REACTION Time Seen by Provider: 06/19/17 12:51 Pain Intensity: 0 Pain Scale Used: 0-10 Numeric - Allergies/Home Medications Allergies/Adverse Reactions: Allergies Allergy/AdvReac Type Severity Reaction Status Date / Time diphenhydramine Allergy Agitation Verified 06/19/17 12:57 [From Benadryl] MS Sulfa Antibiotics AdvReac See Comment Verified 10/17/16 11:37 [Sulfa Antibiotics] "some chemo drugs" Allergy Unknown Uncoded 02/16/17 10:00 Reaction Details Home Medications: Home Medications Amoxicillin PO (*) [Amoxicillin 500 MG CAP*] 500 mg PO Q6H 06/19/17 [History Confirmed 06/19/17] Digoxin [Digitek] 125 mcg PO DAILY 06/19/17 [History Confirmed 06/19/17] Digoxin [Digitek] 250 mcg PO EVERY OTHER DAY 06/19/17 [History Confirmed ] PMH/Surg Hx/FS Hx/Imm Hx - Additional Past Medical History Additional PMH: follicular lymphoma in remission Previously Healthy: Yes - Surgical History Surgical History: Yes Surgery Procedure, Year, and Place: appy as "a teenager" - Family History Known Family History: Negative: Cardiac Disease - denies family hx of, Diabetes - Social History Alcohol Use: None Substance Use Type: Marijuana Substance Use Comment - Amount & Last Used: legal Smoking Status (MU): Never Smoked Tobacco - Immunization History Most Recent Influenza Vaccination: 2016 Most Recent Pneumonia Vaccination: up to date Review of Systems Constitutional: Negative Skin: Negative Eyes: Negative ENT: Other - voice change and mild anterior tongue swelling Respiratory: Negative Cardiovascular: Negative Gastrointestinal: Negative Genitourinary: Negative Motor: Negative Neurovascular: Negative Neurological: Negative Psychological: Negative All Other Systems Reviewed And Are Negative: Yes Physical Exam Triage Information Reviewed: Yes Vital Signs: Initial Vital Signs Temp 37.3 C 04/11/18 13:01 Pulse 88 06/19/17 13:01 Resp 16 06/19/17 13:01 BP 107/60 06/19/17 13:01 Pulse Ox 97 06/19/17 13:01 Eye Exam: Normal ENT Exam: Normal ENT: Positive: Pharynx normal, Uvula midline, Other - no angioedema, mild swelling in anterior portion of tongue, phonation intact, no SOB. Negative: Pharyngeal erythema, Nasal congestion Dental Exam: Normal Neck exam: Normal Neck: Positive: 1 Respiratory Exam: Normal Cardiovascular Exam: Normal Abdominal Exam: Normal Musculoskeletal Exam: Normal Neurological Exam: Normal Psychological Exam: Normal Skin Exam: Normal Allergic Reaction Course/Dx - Course Course Of Treatment: No current evidence or signs of angioedema, urticaria, bronchospasm, respiratory distress. Pt is senstitive to a lot of meds after chemo and states her "body has changed after chemo and is not reacting to medication normally as she used to" so she declined trial of PO Benadryl. advised COPIOUS HYDRATION TO DILUTE ABX METABOLITES and urinate out the product - Differential Dx/Diagnosis Provider Diagnoses: adverse drug reaction Discharge - Sign-Out/Discharge Documenting (check all that apply): Discharge - Discharge Plan Condition: Stable Disposition: HOME Patient Education Materials: Adverse Drug Reaction (ED) Referrals: Jud Holland MD [Primary Care Provider] - Additional Instructions: STOP taking amoxicilin and please go to ER if sensation of tongue swellling and change in voice persists COPIOUS AMOUNT OF WATER FOR THE NEXT 6 hrs - Billing Disposition and Condition Condition: STABLE Disposition: HOME
== END 2017-06-19 13:59 | disposition home or self-care (01) ==
LOC: UCEAST 12:47
DX: R49.9 Unspecified voice and resonance disorder (principal); R09.89 Other specified symptoms and signs involving the circulatory and respiratory systems; T36.0X5A Adverse effect of penicillins, initial encounter; Y92.9 Unspecified place or not applicable; C82.90 Follicular lymphoma, unspecified, unspecified site; Z88.2 Allergy status to sulfonamides; Z88.8 Allergy status to other drugs, medicaments and biological substances
CPT/HCPCS: 99211; G0463

== ENCOUNTER 2018-01-04 13:33 | Emergency (ER) | payer MEDICARE ==
--- OUTSIDE RECORDS SUMMARY | 2018-01-04 13:38 | XMS REPORT ---
:1940 External Reference #:[id number] Author Organization [facility] Address [address] [place] [address] [place] [address] Phone [phone] Care Team Providers Name Role Phone Jud Holland MD Primary Care Physician Unavailable Payers Type Date Identification Numbers Payment Provider Subscriber Health Maintenance Policy Number: Medicare Blue Ppo [facility] ([facility]) [id number] Group Number: [id number] [address] [address] PayID: [id number] PILI Olson [address] Health Maintenance Expires: Policy Number: Medicare Wu Hansen ([facility]) 12/10/2011 [id number] [facility] Miri PayID: [id number] [address] [address] PILI Olson [address] Medigap Part B Effective: 07/09/2006 Policy Number: Medicare [facility] [id number] PayID: [id number] [address] [place] [address] Problems Date Description Provider Status Onset: Paroxysmal atrial fibrillation Active Onset: 01/26/2011 Impaired fasting glycaemia Bernice Kerr, N.PBrittani Active Onset: 01/26/2011 Benign essential hypertension Bernice Kerr, N.PBrittani Active Onset: 01/26/2011 Hyperlipidemia Bernice Kerr, N.P. Active Onset: 05/28/2016 Osteopenia Jud Holland M.D. Active Onset: 09/25/2016 Ascites Jud Holland M.D. Active Onset: 09/25/2016 Hydronephrosis Jud Holland M.D. Active Note: L side Onset: 09/25/2016 Calculus of kidney and ureter Jud Holland M.D. Active Note: 1.4 cm Onset: 09/26/2016 Retroperitoneal mass Jud Holland M.D. 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 Olivares Onset: 09/25/2016 Pelvic mass Jud Holland M.D. Inactive Inactive: 10/10/2016 Family History Date Family Member(s) Problem(s) Comments General adopted General No Current Problems Mother Stroke Mother due to Natural Causes () - at age of 96 Siblings 2 2 half sisters she has not met. 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 pt working toward 5000 steps daily General Hx Text Lives in [place], no time in the yard Allergies, Adverse Reactions, Alerts Date Description Reaction Status Severity Comments 04/13/2009 Sulfa INTOLERANCE-GI UPSET active Moderate 02/05/2017 Rituximab active 10/16/2017 Amoxicillin could not swallow right active 11/21/2017 Latex active itchy skin Medications Medication Date Status Form Strength Qnty SIG Indications Ordering Provider Shingrix 10/16 Active Suspension 50mcg 1unit intramuscular Rec s x 1 then edda Holland in 4 M.D. months Has not received injection #1 as of 12/10/17 Magnesium 03/06 Active Tablets 250mg 90tab takes Brendan Unger s occasionaly--- F. -1 by mouth Mauser, every other M.D. day Digoxin 01/28 Active Tablets 125mcg 120ta 2 tabs by Brendan bs mouth every F. m,w,f and 1 Mauser, tab every M.D. other day of the week Multi For Her 01/22 Active Tablets takes Jud occasionally [facility] Active CBD 2 puffs Unknown Marijuana / every morning. THC 2 puffs night. in [place] Magnesium 03/06 Hx Tablets 250mg 90tab 1 by mouth Brendan Oxide s every day F. - Mary, 03/06 M.D. Magnesium 03/06 Hx Tablets 250mg 90tab 1 by mouth Brendan Oxide -MG s every day F. Supplement - Mary, 03/06 M.D. Keflex 02/18 Hx Capsules 500mg 10cap 1 by mouth Jud s twice a day x Skyler, - 5 days M.D. 02/23 Magnesium 02/08 Hx Tablets 250mg 30tab 1 by mouth Brendan Oxide -MG s every day F. Supplement - Mary, 02/08 M.D. Magnesium 02/08 Hx Tablets 250mg 30tab 1 by mouth Brendan Oxide s every day F. Scottie Hernandez, 03/06 M.D. No Active 01/22 Hx Unknown Medications /2016 - 01/22 Vitamin B12 01/22 Hx Tablets ER 1000mcg once a day Skyler, - M.D. 10/16 Digoxin 01/13 Hx Tablets 125mcg 30tab 1 by mouth Brendan s daily F. Scottie Hernandez, 01/22 M.D. No Active 09/25 Hx Unknown Medications /2016 - 01/13 Cipro 04/26 Hx Tablets 500mg 14tab 1 by mouth N39.0 s twice a day Skyler, - for 7 days M.D. 05/27 Cipro 03/01 Hx Tablets 250mg 14tab Did Not Take s Varn, - N.P. 04/26 Cephalexin 11/02 Hx Capsules 500mg 21cap take one L03.114 Clayton s capsule every Lisa, TAPPER HELPER - 8 hours for 7 Ventolin HFA 02/25 Hx Aerosol 108(90Bas 1inha 1 to 2 e) ler inhalations Varn, - mcg/Act every 4 hours N.P. 10/21 as needed /2014 Zostavax 11/05 Hx Solution [id number]/ 1unit 1 dose s/c Katty /2011 Rec 0.65ML s Scottie Alegria M.D., 02/20 FAC Crutches 01/26 Hx 1Pair Use as needed 729.4 for plantar Airam - fasciitis Bisi.DBrtitani, 10/21 FACP Simvastatin 02/28 Hx Tablets 20mg 90tab 1 by mouth at s bedtime Scottie Alegria M.D., 01/26 FACP Physical 02/08 Hx Back Pain Katty Scottie Alegria M.D., 02/28 FACP Atenolol 00 Hx Tablets 25mg 90tab take 1 tablet Jud /0000 s by mouth once Skyler, - daily M.D. 06/11 Doxycycline Hx Capsules 100mg 22cap Take 1 capsule Glenn E. Hyclate /0000 s by mouth twice Latesha, - daily M.D. 02/20 Tramadol HCL 0000 Hx Tablets 50mg Unknown /0000 - 12/04 Ondansetron 00 Hx Tablets 4mg dissolve one Unknown /0000 Dispers tablet orally - every 12 hours 05/09 as needed for /2018 nausea. R-Chop Chemo Hx Done Unknown Medications /0000 - 05/23 Potassium 00/00 Hx Tablets ER 20Meq 90tab takes Brendan Chloride ER /0000 s occasionally-- F. - -1 by mouth Mary 11/04 every day ( Pt M.D. stop taking last week of 05/517) Immunizations CPT Code Status Date Vaccine Lot # [id number] Given 05/09/2017 Pneumococcal Conjugate Vaccine 13 Valent For [id number] Intramuscular Use 67481 Given 04/11/2017 Influenza Virus Vaccine, Quadrivalent, Split, Preservative Free 63022 Given 02/21/2016 Influenza Virus Vaccine, Quadrivalent, Split, [id number] Preservative Free Q2037 Given 10/14/2013 Fluvirin Im 3Yrs And Older 46403 Given 05/20/2013 Tdap - Tetanus/Diptheria/Acellular Pertussis Q2035 Given 10/23/2012 Afluria Vaccine 88907 Given 10/23/2012 Zoster (Zostavax) Q2038 Given 11/05/2011 Fluzone Vaccine [id number] 89619 Given 02/08/2010 Influenza Virus 3Yrs & Over 54899 Given 03/14/2009 Influenza Virus Vaccine, Pandemic Formulation 80021 Given 03/14/2009 Influenza Virus 3Yrs & Over 24510 Given 03/14/2009 Administration Swine Flu Shot 37344 Given 02/26/2006 Influenza Virus 3Yrs & Over Vital Signs Date Vital Result Comment 12/10/2017 Height 65.1 inches 5'5.10" Weight 157.50 lb Heart Rate 80 /min BP Systolic 126 mmHg left arm BP Diastolic 80 mmHg left arm BMI (Body Mass Index) 26.1 kg/m2 Ejection Fraction 55-60% 01/07/2017 Echocardiogram 11/21/2017 Height 65.1 inches 5'5.10" Weight 157.00 lb w/o shoes Heart Rate 90 /min BP Systolic Sitting 111 mmHg BP Diastolic Sitting 61 mmHg BMI (Body Mass Index) 26.0 kg/m2 11/04/2017 Height 65.1 inches 5'5.10" Weight 155.00 lb Heart Rate 86 /min BP Systolic Sitting 110 mmHg BP Diastolic Sitting 70 mmHg O2 % BldC Oximetry 97 % BMI (Body Mass Index) 25.7 kg/m2 10/16/2017 Height 65 inches 5'5" Weight 155.00 lb Heart Rate 72 /min BP Systolic Sitting 110 mmHg BP Diastolic Sitting 78 mmHg O2 % BldC Oximetry 97 % BMI (Body Mass Index) 25.8 kg/m2 05/23/2017 Weight 144.00 lb with shoes Heart [...] Result H/L Range Note Laboratory test finding 11/07/2017 TSH (Thyroid Stim 1.44 mcIU/mL 0.34- 5.60 Horm) T3 Free 3.20 pg/mL 2.5-3.9 Free T4 (Free Thyroxine) 0.85 ng/dL 0.61-1.12 Laboratory test finding 11/07/2017 Glucose 113 mg/dL High 70-100 Hemoglobin A1c (Glyco HGB) 5.8 % High 4.0-5.6 1 Laboratory test finding 11/07/2017 Magnesium 1.9 mg/dL 1.9-2.7 Laboratory test finding 11/05/2017 Cytology Non-Worship Director SEE RESULT BELOW 2 Laboratory test finding 10/14/2017 Hemosure Medicare Negative CBC Auto Diff 05/23/2017 White Blood Count 3.8 10^3/uL 3.5-10.8 Red Blood Count 4.17 10^6/uL 4.0-5.4 Hemoglobin 12.0 g/dL 12.0-16.0 Hematocrit 36 % 35-47 Mean Corpuscular Volume 87 fL 80-97 Mean Corpuscular Hemoglobin 29 pg 27-31 Mean Corpuscular HGB Conc 33 g/dL 31-36 Red Cell Distribution Width 13 % 10.5-15 Platelet Count 115 10^3/uL Low 150-450 Mean Platelet Volume 8 um3 7.4-10.4 Abs Neutrophils 2.8 10^3/uL 1.5-7.7 Abs Lymphocytes 0.5 10^3/uL Low 1.0-4.8 Abs Monocytes 0.4 10^3/uL 0-0.8 Abs Eosinophils 0 10^3/uL 0-0.6 Abs Basophils 0 10^3/uL 0-0.2 Abs Nucleated RBC 0 10^3/uL Granulocyte % 74.1 % 38-83 Lymphocyte % 12.9 % Low 25-47 Monocyte % 11.6 % High 0-7 Eosinophil % 0.8 % 0-6 Basophil % 0.6 % 0-2 Nucleated Red Blood Cells % 0.1 Laboratory test finding 05/22/2017 Magnesium 1.7 mg/dL Low 1.9-2.7 Digoxin 0.5 ng/ml Low 0.8-2.0 Comp Metabolic Panel 05/22/2017 Sodium 139 mmol/L [...] Egfr Non- 79.0 >60 Egfr 101.6 >60 3 CBC Auto Diff 03/18/2017 White Blood Count [...] Blood Cells % 0.1 Laboratory test finding 03/18/2017 Uric Acid 5.6 mg/dL 2.3-6.6 LDH 121 U/L Low 140-271 Comp Metabolic Panel 03/18/2017 Sodium 138 mmol/L [...] Egfr Non- 68.9 >60 Egfr 88.6 >60 4 Urinalysis Profile 02/19/2017 Urine Color Yellow Urine Appearance Clear Urine Specific Edwards 1.003 Low 1.010-1.030 Urine pH 7.0 5-9 [...] mg/dL Low 1.9-2.7 Pathologist Review (SEE NOTE) 5 Blood Culture SEE RESULT BELOW 6 Manual Differential 02/19/2017 Neutrophil % 17 % Low 38-83 Lymphocytes % 62 % High 25-47 Monocytes % 10 % 0-13 Eosinophils % 1 % 0-6 Basophil % 1 % 0-2 Reactive Lymph % 9 % High 0-6 Hypochromasia 1+ Comments (SEE NOTE) 7 CBC Auto Diff 02/19/2017 White Blood Count [...] 7.4-10.4 Abs Neutrophils 0.1 10^3/uL Low 1.5-7.7 8 Abs Lymphocytes 0.2 10^3/uL Low 1.0-4.8 Abs Monocytes 0 10^3/uL 0-0.8 Abs Eosinophils 0 10^3/uL 0-0.6 Abs Basophils 0 10^3/uL 0-0.2 Laboratory test finding 02/19/2017 Troponin-I (TnI) 0.07 ng/mL High <0.04 9 Comp Metabolic Panel 02/19/2017 Sodium 135 mmol/L [...] Egfr Non- 67.0 >60 Egfr 86.2 >60 10 Laboratory test finding 02/19/2017 Partial Thrombo Time 33.1 seconds 26.0 -36.3 PTT Inr/Protime 02/19/2017 Inr 0.99 0.77-1.02 11 Laboratory test finding 02/19/2017 Lactic Acid 1.0 mmol/L 0.5-2.0 12 Laboratory test finding 02/19/2017 Lactic Acid 1.5 mmol/L 0.5-2.0 13 Basic Metabolic Panel 02/18/2017 Sodium 135 mmol/L 133-145 Potassium 3.9 mmol/L 3.5-5.0 Chloride 100 mmol/L Low 101-111 Co2 Carbon Dioxide 32 mmol/L 22-32 Anion Gap 3 mmol/L 2-11 Glucose 85 mg/dL 70-100 Blood Urea Nitrogen 22 mg/dL 6-24 Creatinine 0.61 mg/dL 0.51-0.95 BUN/Creatinine Ratio 36.1 High 8-20 Calcium 9.0 mg/dL 8.6-10.3 Egfr Non- 95.6 >60 Egfr 123.0 >60 14 Laboratory test finding 02/18/2017 Uric Acid 5.1 mg/dL 2.3-6.6 LDH 132 U/L Low 140-271 Comp Metabolic Panel 02/18/2017 Sodium 135 mmol/L [...] Egfr Non- 95.6 >60 Egfr 123.0 >60 15 Laboratory test finding 02/18/2017 Magnesium 1.7 mg/dL Low 1.9-2.7 Laboratory test finding 02/16/2017 Pathologist Review (SEE NOTE) 16 Manual Differential 02/16/2017 Immature Granulocytes 2 % 0-9 Neutrophil % 98 % High 38-83 Band % 2 % 0-8 Hypochromasia 1+ CBC Auto Diff 02/16/2017 White Blood Count [...] Basophils 0 10^3/uL 0-0.2 Laboratory test finding 02/16/2017 Magnesium 1.9 mg/dL 1.9-2.7 Creatine Kinase(CK) 12 U/L 10-223 Troponin-I (TnI) 0.07 ng/mL High <0.04 17 Digoxin 1.6 ng/ml 0.8-2.0 TSH (Thyroid Stim Horm) 0.26 mcIU/mL Low 0.34-5.60 T3 Free 2.50 pg/mL 2.5-3.9 Free T4 (Free Thyroxine) 0.94 ng/dL 0.61-1.12 Comp Metabolic Panel 02/16/2017 Sodium 139 mmol/L [...] Egfr Non- 88.9 >60 Egfr 114.3 >60 18 Laboratory test finding 02/16/2017 Partial Thrombo Time 30.9 seconds 26.0 -36.3 PTT Lactic Acid 1.6 mmol/L 0.5-2.0 19 B-Type Natriuretic Peptide BNP 524 pg/mL High 20 Laboratory test finding 02/16/2017 Troponin-I (TnI) 0.07 ng/mL High <0.04 21 Laboratory test finding 02/07/2017 Digoxin 0.5 ng/ml Low 0.8-2.0 22, 23 Magnesium 1.7 mg/dL Low 1.9-2.7 22, 24 Laboratory test finding 02/04/2017 Uric Acid 5.7 mg/dL 2.3-6.6 LDH 103 U/L Low 140-271 Digoxin 0.4 ng/ml Low 0.8-2.0 Comp Metabolic Panel 02/04/2017 Sodium 140 mmol/L [...] Egfr Non- 80.3 >60 Egfr 103.2 >60 25 CBC Auto Diff 02/04/2017 White Blood Count 5.5 10^3/uL 3.5-10.8 Red Blood Count 3.13 10^6/uL Low 4.0-5.4 Hemoglobin 9.7 g/dL Low 12.0-16.0 Hematocrit 29 % Low 35-47 Mean Corpuscular Volume 93 fL 80-97 Mean Corpuscular Hemoglobin 31 pg 27-31 Mean Corpuscular HGB Conc 34 g/dL 31-36 Red Cell Distribution Width 16 % High 10.5-15 Platelet Count 88 10^3/uL Low 150-450 26 Mean Platelet Volume 8 um3 7.4-10.4 Abs [...] Blood Cells % 0.1 Comp Metabolic Panel 01/06/2017 Sodium 141 mmol/L [...] Egfr Non- 74.2 >60 Egfr 95.4 >60 27 Laboratory test finding 01/06/2017 Magnesium 1.8 mg/dL Low 1.9-2.7 Creatine Kinase(CK) < 10 U/L Low 10-223 Troponin-I (TnI) 0.03 ng/mL <0.04 CKMB 01/06/2017 CKMB ng/mL 2.2 ng/mL 0.6-6.3 Laboratory test 01/06/2017 TSH (Thyroid Stim 0.43 mcIU/mL 0.34-5.60 finding Horm) Laboratory test 01/06/2017 B-Type Natriuretic 581 pg/mL High 28 finding Peptide BNP Laboratory test 01/06/2017 Lactic Acid 2.2 mmol/L High 0.5-2.0 29 finding Blood Culture SEE RESULT BELOW 30 CBC Auto Diff 01/06/2017 White Blood Count [...] test finding 01/06/2017 Pathologist Review (SEE NOTE) 31 Laboratory test finding 12/17/2016 LDH 176 U/L [...] Egfr Non- 93.8 >60 Egfr 120.7 >60 32 Laboratory test finding 12/17/2016 Uric Acid 5.0 [...] test finding 12/17/2016 Pathologist Review (SEE NOTE) 33 Urinalysis Profile 11/07/2016 Urine Color Yellow Urine Appearance Clear Urine Specific Edwards 1.014 1.010-1.030 Urine pH 6.0 5-9 Urine [...] And 11/07/2016 Urine Culture SEE RESULT BELOW 34 Sensitivities Laboratory test finding 11/07/2016 Lactic Acid 0.8 mmol/L 0.5-2.0 35 Laboratory test finding 11/07/2016 Lipase < 10 U/L Low 11.0-82.0 Troponin-I (TnI) 0.00 ng/mL <0.04 Comp Metabolic Panel 11/07/2016 Sodium 133 mmol/L [...] Egfr Non- 92.1 >60 Egfr 118.5 >60 36 Laboratory test finding 11/07/2016 Partial Thrombo Time 58.4 seconds High 26.0-36.3 PTT CBC Auto Diff 11/07/2016 White Blood Count [...] 7.4-10.4 Abs Neutrophils 0.1 10^3/uL Low 1.5-7.7 37 Abs Lymphocytes 0.1 10^3/uL Low 1.0-4.8 Abs Monocytes 0.1 10^3/uL 0-0.8 Abs Eosinophils 0 10^3/uL 0-0.6 Abs Basophils 0 10^3/uL 0-0.2 Abs Nucleated RBC 0 10^3/uL Granulocyte % 24.5 % Low 38-83 Lymphocyte % 31.0 % 25-47 Monocyte % 34.2 % High 1-9 Eosinophil % 9.3 % High 0-6 Basophil % 1.0 % 0-2 Nucleated Red Blood Cells % 0.3 Urinalysis Profile 10/17/2016 Urine Color Yellow Urine Appearance Clear Urine Specific Edwards 1.048 High 1.010-1.030 Urine pH 5.0 5-9 [...] finding 10/17/2016 Lactic Acid 0.8 mmol/L 0.5-2.0 38 Inr/Protime 10/17/2016 Inr 0.95 0.89-1.11 Laboratory test [...] Egfr Non- 52.8 >60 Egfr 67.9 >60 39 Laboratory test finding 10/17/2016 Magnesium 1.9 mg/dL 1.9-2.7 Lipase 13 U/L 11.0-82.0 C Reactive Protein 20.35 mg/L High < 5.00 40 Troponin-I (TnI) 0.01 ng/mL <0.04 TSH (Thyroid Stim Horm) 1.88 mcIU/mL 0.34-5.60 Folic Acid (Folate) 10.14 ng/mL >3.99 Vitamin B12 407 pg/mL 180-914 41 Inr/Protime 09/29/2016 Inr 1.02 0.89-1.11 Laboratory test finding 09/29/2016 Magnesium 1.7 mg/dL Low 1.9-2.7 Comp Metabolic Panel 09/29/2016 Sodium 133 mmol/L [...] Egfr Non- 57.3 >60 Egfr 73.8 >60 42 Laboratory test finding 09/29/2016 B-Type Natriuretic 45 pg/mL 43 Peptide BNP CBC Auto Diff 09/29/2016 White Blood Count [...] Red Blood Cells % 0 Laboratory test 09/29/2016 D Dimer Quantitative 757 ng/mL High Less Than 230 44 finding Lactic Acid 0.7 mmol/L 0.5-2.0 45 Laboratory test finding 09/25/2016 TSH (Thyroid [...] Blood Cells % 0.1 Comp Metabolic Panel 09/25/2016 Sodium 140 mmol/L [...] Egfr Non- 51.7 >60 Egfr 66.4 >60 46 Laboratory test finding 09/25/2016 Glucose 86 mg/dL 70-100 Hemoglobin A1c (Glyco HGB) 5.6 % Less than 6.0 47 Pthi 09/25/2016 Calcium (PTH Intact) 10.0 mg/dL 8.6-10.3 PTH Intact 1.6 pmol/L 1.3-9.3 Laboratory test finding 09/25/2016 CA 125 (Ovarian 1893.7 U/mL High 0-35 48 Cancer Ag) Laboratory test finding 09/25/2016 Vitamin D Total 15.2 ng/mL Low 30-50 25(Oh) Order 05/28/2016 EKG <pending> Urine Culture And 04/26/2016 Urine Culture SEE RESULT BELOW 49 Sensitivities Ua Routine 04/26/2016 Ua Specific Edwards 1.015 Ua PH 5 Ua Color cloudy Ua Appera red in color Ua WBC ++ Ua Protein +++ Ua Glucose noraml Ua Ketones negative Ua Bilirubin negative Ua Urobilinogen normal Ua Nitrite positive Ua Occult Blood large Urine Culture And 03/01/2016 Urine Culture SEE RESULT BELOW 50 Sensitivities Ua Routine 03/01/2016 Ua Specific Edwards 1.020 Ua PH 5 Ua Color yellow Ua Appera cloudy Ua WBC small Ua Protein neg Ua Glucose neg Ua Ketones neg Ua Bilirubin neg Ua Urobilinogen neg Ua Nitrite neg Ua Occult Blood small Laboratory test finding 02/21/2016 Lyme Disease Serology Positive Negative 51 Lyme Western Blot 02/21/2016 Lyme Disease IgG Ab WB Positive Negative Lyme Disease IgG Bands Present See Comment kDa 52 Lyme Disease IgM Ab WB Positive Negative Lyme Disease IgM Bands Present p41, p39, kDa Lyme Disease Interpretation See Comment 53 Lipid Profile (Trig/Chol/HDL) 02/21/2016 Triglycerides 67 mg/dL 54 Cholesterol 179 mg/dL 55 HDL Cholesterol 34.9 mg/dL 56 LDL Cholesterol 131 mg/dL 57 Basic Metabolic Panel 02/21/2016 Sodium 138 mmol/L 133-145 Potassium 4.2 mmol/L 3.5-5.0 Chloride 104 mmol/L 101-111 Co2 Carbon Dioxide 30 mmol/L 22-32 Anion Gap 4 mmol/L 2-11 Glucose 106 mg/dL High 70-100 Blood Urea Nitrogen 24 mg/dL 6-24 Creatinine 0.91 mg/dL 0.51-0.95 BUN/Creatinine Ratio 26.4 High 8-20 Calcium 9.8 mg/dL 8.6-10.3 Egfr Non- 60.4 >60 Egfr 77.7 >60 58 Laboratory test finding 11/27/2015 C Reactive Protein 5.03 mg/L High < 5.00 59 CBC Auto Diff 11/27/2015 White Blood [...] Cells % 0.1 Laboratory test finding 11/27/2015 Erythrocyte Sed Rate 29 mm/Hr 0-40 Lyme Disease Serology Positive Negative 60 Lyme Western Blot 11/27/2015 Lyme Disease IgG Ab WB Negative Negative Lyme Disease IgG Bands Present p66, p41, p23, kDa Lyme Disease IgM Ab WB Positive Negative Lyme Disease IgM Bands Present p41, p23, kDa Lyme Disease Interpretation See Comment 61 1 Therapeutic target for the treatment of diabetes mellitus patients is <7% HBA1C, and in selective patients <6.0%. Please refer to [employer] diabetic care guidelines for further information. 2 SEE RESULT BELOW Name: [facility] : [address]: Jud Holland MD Acct: [id number] Unit: [id number] AGE: 77 Location: Re11/05/17 SEX: F Status: REG REF SPEC: [id number] DONALD: 11/05/[address] [facility] [address]: Jud Holland MD REQ: [id number] RECD: 11/05/17 STATUS: MARILY BEGUM DR: Moose Patiño MD _ ORDERED: FNA-IMG GUID BX, CY ADEQ-ADDL P/3, CYTO ADEQ-1ST P FINAL DIAGNOSIS Thyroid, right, Ultrasound guided fine needle aspiration: --Benign thyroid nodule- colloid/hyperplastic type ([place] Class II). The specimen demonstrates modest watery colloid, a scant amount of benign appearing follicular epithelium arranged in uniform sheets, medium sized follicles and only occasional small groups. No features of papillary carcinoma are seen. In this clinical setting the risk of malignancy is less than 3%. Clinical management of this thyroid nodule should be based on clinical and radiographic features as well as the above. THYROID RIGHT - US GUIDED RIGHT THYROID FINE NEEDLE ASPIRATION CLINICAL HISTORY 3.0 x 1.7 x 1.9 cm right thyroid nodule. IMMEDIATE INTERPRETATION Passes 1-4 inadequate CONTINUED ON NEXT PAGE DEPARTMENT OF PATHOLOGY, [address] [place] [address] Nico Boucher M.D. Director [facility] # [id number] RUN DATE: 11/05/17 [facility] LAB LIVE PAGE 2 Patient: [facility] [id number] (Continued) GROSS DESCRIPTION (Continued) GROSS DESCRIPTION Ultrasound guided, fine needle aspiration x 4 passes with 13 Alcohol fixed slide(s). Signed by and Reported on: Nico Boucher MD 1622 END OF REPORT DEPARTMENT OF PATHOLOGY, [address] [place] [address] Nico Boucher M.D. Director [facility] # [id number] 3 Because ethnic data is not always readily [...] 15-29 5 Kidney failure <15 (or dialysis) 4 Because ethnic data is not always readily [...] 15-29 5 Kidney failure <15 (or dialysis) 5 Pancytopenia with absolute neutropenia, normocytic anemia, and marked thrombocytopenia. No evidence of a hemolytic process. Reviewed by Jenna Hodgson MD 6 SEE RESULT BELOW Name: [facility] Bisi : [address]: Margot Sharif MD Acct: [id number] Unit: [id number] AGE: 76 Location: [place] [address] Re02/19/17 SEX: F Status: ADM IN SPEC: [id number] DONALD: 02/19/[address] [facility] [address]: Jasen Carolina MD REQ: [id number] RECD: 02/19/17 STATUS: RES [facility] DR: Jud Holland MD _ SOURCE: BLOOD,VENO SPDESC: ORDERED: Blood Cult COMMENTS: COLLECTED FROM LAC Procedure Result Reported Site Aerobic Culture Bottle Preliminary 02/20/17- 1425 ML No Growth Day 1 Anaerobic Culture Bottle Preliminary 02/20/17- 1425 ML No Growth Day 1 * ML - MAIN LAB ([facility]) . END OF REPORT * ML=Testing performed at Main Lab DEPARTMENT OF PATHOLOGY, [address] [place] [address] Nico Boucher M.D. Director [facility] # [id number] 7 Differential performed on buffy coat. 8 Verbal to [id number] by [id number] at 1534 on 02/19/17. Results read back accurately. 9 Result TnIDx:0.07 Called to [id number] at: 14:46:42 by:[id number] Read back by: [id number] 10 Because ethnic data is not always readily [...] 15-29 5 Kidney failure <15 (or dialysis) 11 Please note the change in INR reference range effective 17. 12 [facility] Severe Sepsis and Septic Shock Management Bundle Measure requires all lactic acids initially measuring >2.0 mmol/L be repeated. 13 [facility] Severe Sepsis and Septic Shock Management Bundle Measure requires all lactic acids initially measuring >2.0 mmol/L be repeated. 14 Because ethnic data is not always readily [...] 15-29 5 Kidney failure <15 (or dialysis) 15 Because ethnic data is not always readily [...] 15-29 5 Kidney failure <15 (or dialysis) 16 Leukocytosis with absolute neutrophilia and moderate thrombocytopenia noted. Reactive/inflammatory process is favored. Additional studies should be considered as clinically warranted. 17 Result TnIDx:0.07 Called to [id number] at: 10:48:09 by:[id number] Read back by: [id number] 18 Because ethnic data is not always readily [...] 15-29 5 Kidney failure <15 (or dialysis) 19 [facility] Severe Sepsis and Septic Shock Management Bundle Measure requires all lactic acids initially measuring >2.0 mmol/L be repeated. 20 >100 to <200 pg/mL: likely compensated congestive heart failure (CHF) 200 to 400 pg/mL: likely moderate CHF >400 pg/mL: likely moderate to severe CHF 21 Result TnIDx:0.07 Called to [id number] at: 14:50:10 by:[id number] Read back by: [id number] 23 [id number] 25 Because ethnic data is not always [...] 5 Kidney failure <15 (or dialysis) 26 Consistent with previous results on 01/28/17. 27 Because ethnic data is not always readily [...] 15-29 5 Kidney failure <15 (or dialysis) 28 >100 to <200 pg/mL: likely compensated congestive heart failure (CHF) 200 to 400 pg/mL: likely moderate CHF >400 pg/mL: likely moderate to severe CHF 29 Critical Result LACT:2.2 Called to [id number] at: 08:48:48 by:[id number] Read back by:[id number] [facility] Severe Sepsis and Septic Shock Management Bundle Measure requires all lactic acids initially measuring >2.0 mmol/L be repeated. 30 SEE RESULT BELOW Name: [facility] : [address]: Willy Hamilton MD Acct: [id number] Unit: [id number] AGE: 76 Location: [place] [address] Re01/06/17 SEX: F Status: ADM IN SPEC: [id number] DONALD: 01/06/[address] [facility] [address]: Glenn Rutledge MD REQ: [id number] RECD: 01/06/17 STATUS: RES OTHR DR: Jud Holland MD _ SOURCE: BLOOD,VENO SPDESC: ORDERED: Blood Cult COMMENTS: Patient is On Antibiotics? NO Procedure Result Reported Site Aerobic Culture Bottle Preliminary 01/07/17825 ML No Growth Day 1 Anaerobic Culture Bottle Preliminary 01/07/17- 825 ML No Growth Day 1 * ML - MAIN LAB ([facility]) . END OF REPORT * ML=Testing performed at Main Lab DEPARTMENT OF PATHOLOGY, [address] [place] [address] Nico Boucher M.D. Director [facility] [facility] # [id number] 31 Progressive normocytic anemia with thrombocytopenia noted. No schistocytes or blasts are identified. Additional studies as clinically warranted. Reviewed by Dr. Boucher 32 Because ethnic data is not always readily [...] 15-29 5 Kidney failure <15 (or dialysis) 33 Pancytopenia with absolute neutropenia, normocytic anemia, and moderate thrombocytopenia. No evidence of a hemolytic process. Reviewed by Jenna Hodgson MD 34 SEE RESULT BELOW Name: [facility] : [address]: Mushtaq Clemente MD Acct: [id number] Unit: [id number] AGE: 76 Location: [place] [address]- Re11/07/16 SEX: F Status: ADM Ras SPEC: [id number] DONALD: 11/07/[address] [facility] [address]: Mariano Durbin MD REQ: [id number] RECD: 11/07/16 STATUS: COMP OLVINHR DR: Jud Holland MD _ SOURCE: URINE SPDESC: ORDERED: Urine Culture Procedure Result Reported Site Urine Culture Final 11/08/16- 851 ML No growth of clinically significant organisms * ML - MAIN LAB ([facility]1) . END OF REPORT * ML=Testing performed at Main Lab DEPARTMENT OF PATHOLOGY, [address] [place] [address] Nico Boucher M.D. Director [facility] # [id number] 35 [facility] Severe Sepsis and Septic Shock Management Bundle Measure requires all lactic acids initially measuring >2.0 mmol/L be repeated. 36 Because ethnic data is not always readily [...] 15-29 5 Kidney failure <15 (or dialysis) 37 Verbal to [id number] by [id number] at 0311 on 11/07/16. Results read back accurately. 38 [facility] Severe Sepsis and Septic Shock Management Bundle Measure requires all lactic acids initially measuring >2.0 mmol/L be repeated. 39 Because ethnic data is not always readily [...] 15-29 5 Kidney failure <15 (or dialysis) 40 Acute inflammation: >10.00 41 Normal Range 180 to 914 Indeterminate Range 145 to 180 Deficient Range <145 42 Because ethnic data is not always readily [...] 15-29 5 Kidney failure <15 (or dialysis) 43 >100 to <200 pg/mL: likely compensated congestive heart failure (CHF) 200 to 400 pg/mL: likely moderate CHF >400 pg/mL: likely moderate to severe CHF 44 Please note: The following may produce a false positive D Dimer test: - Rheumatoid factor greater than 60 IU/ml - Plasma hemoglobin greater than 0.05 gm/dl - Bilirubin greater than 50 mg/dl - Lipids greater than 1000 mg/dl - FDP greater than 20 ug/ml 45 [facility] Severe Sepsis and Septic Shock Management Bundle Measure requires all lactic acids initially measuring >2.0 mmol/L be repeated. 46 Because ethnic data is not always readily [...] 15-29 5 Kidney failure <15 (or dialysis) 47 Therapeutic target for the treatment of diabetes Mellitus patients is <7% HBA1C, and in selective patients <6.0%.Please refer to [place] [employer] Diabetic care guidelines for further information. 48 Instrument used is Emmanuel Denys DXI 600. The assay is a two-site immunoenzymatic "sandwich" assay. Do not interpret CA125 levels as absolute evidence of the presence or the absence of malignant disease. Use in conjunction with information from the clinical evaluation of the patient and other diagnostic procedures. Values obtained with different assay methods cannot be used interchangeably. 49 SEE RESULT BELOW Name: [facility] : [address]: Jud Holland MD Acct: [id number] Unit: [id number] AGE: 75 Location: [facility] Re04/26/16 SEX: F Status: REG REF SPEC: [id number] DONALD: 04/26/16-[address] [facility] [address]: Jud Holland MD REQ: [id number] RECD: 04/27/16-1233 STATUS: COMP _ SOURCE: URINE SPDESC: ORDERED: Urine Culture Urine Source: Random Procedure Result Reported Site Urine Culture Final 04/29/16- 821 ML Organism 1 ESCHERICHIA COLI [place] Count >100,000 (Many) CFU/ML 1. ESCHERICHIA COLI [...] antibiotic reporting. * ML - MAIN LAB ([facility]) . END OF REPORT * ML=Testing performed at Main Lab DEPARTMENT OF PATHOLOGY, [address] [place] [address] Nico Boucher M.D. Director [facility] # [id number] 50 SEE RESULT BELOW Name: [facility] : [address]: Bernice Kerr NP Acct: [id number] Unit: [id number] AGE: 75 Location: [facility] Re03/01/16 SEX: F Status: REG REF SPEC: [id number] DONALD: 03/01/16-[address]: Bernice Kerr NP REQ: [id number] RECD: 03/01/16 STATUS: COMP _ SOURCE: URINE SPDESC: ORDERED: Urine Culture COMMENTS: [id number] Urine Source: Random Procedure Result Reported Site Urine Culture Final 03/03/16- 0906 ML Few Enterobacteriacae; possible contamination. * ML - MAIN LAB ([facility]) . END OF REPORT * ML=Testing performed at Main Lab DEPARTMENT OF PATHOLOGY, [address] [place] [address] Nico Boucher M.D. Director [facility] # [id number] 51 Not diagnostic. Supplemental testing ordered by reflex. Test Performed by: [place] [address] Junior Mechanical Engineer: Dorian Pascual II, M.D., Ph.D. 52 RESULT: p66, p41, p30, p23, p18, 53 Consistent with active or previous infection for [...] screening test (e.g., EIA). Test Performed by: [address] [address] Junior Mechanical Engineer: Dorian Pascual II, M.D., Ph.D. 54 Desirable <150 Borderline high 150-199 High 200-499 Very High >500 55 Desirable <200 Borderline high 200-239 High >239 56 Low <40 Desirable: 40-60 High: >60 57 Desirable: <100 mg/dL Near Optimal: 100-129 mg/dL Borderline High: 130-159 mg/dL High: 160-189 mg/dL Very High: >189 mg/dL 58 Because ethnic data is not always readily [...] 15-29 5 Kidney failure <15 (or dialysis) 59 Acute inflammation: >10.00 60 Not diagnostic. Supplemental testing ordered by reflex. Test Performed by: [place] [address] Junior Mechanical Engineer: Dorian Pascual II, M.D., Ph.D. 61 Consistent with early infection with Borrelia burgdorferi. [...] screening test (e.g., EIA). Test Performed by: [place] [address] Junior Mechanical Engineer: Dorian Pascual II, M.D., Ph.D. Procedures Date CPT Code Description Status 12/10/2017 42022 EKG Tracing & Interpretation Completed 10/07/2017 Mammogram Completed 10/07/2017 Bone Mineral Density Test Completed 05/23/2017 93671 EKG Tracing & Interpretation Completed 03/03/2017 12746 Event Monitor/Phys Review/Interp. Completed 02/05/2017 51278 EKG Tracing & Interpretation Completed 01/07/2017 70863 ECHO Transthorasic Realtime 2D W Doppler & Color Flow Completed Hosp 01/07/2017 12548 EKG, Interpretation Only Completed 10/18/2016 55260 Nerve Conduction 05-06 Studies Completed 10/18/2016 70343 Needle Electromyography Complete, Five Or More Muscles Completed Studied 05/28/2016 03835 EKG Tracing & Interpretation Completed 05/10/2016 61852 ECHO Transthoracic, Real-Time 2D With Doppler And Color Completed Flow 01/29/2011 Diabetic Foot Exam Completed 02/09/2010 Bone Mineral Density Test Completed 03/14/2009 96108 EKG Tracing & Interpretation Completed 09/27/2008 80403 Holter Monitor Review (24 hr)dr review & interp only Completed 09/22/2008 06284 EKG Tracing & Interpretation Completed 10/09/2007 Mammogram Completed 07/22/2007 89419 EKG Tracing & Interpretation Completed 07/22/2007 21289 EKG Tracing & Interpretation Completed Encounters Type Date Location Provider CPT E/M Dx Office Visit 11/21/2017 8:40a [facility] [place] [facility] [place] [address] E04.1 [facility] C82.98 Office Visit 11/04/2017 8:10a [facility] Jud Holland M.D. 28329 E04.1 - Sarah R13.12 Office Visit 10/16/2017 10:50a [facility] Jud Holland M.D. 83306 J94.9 - [place] K76.89 E04.1 Office Visit 05/23/2017 11:50a [facility] Jud Holland M.D. 21287 F43.0 - [place] F51.02 E83.42 R73.9 Office Visit 05/23/2017 3:00p [facility] Hernandez, 89980 E83.42 Jami Yanez I48.0 Office Visit 05/09/2017 11:50a [facility] Internal Medicine - Jud Holland M.D. 93118 Z23 [place] Z12.11 Z12.31 M85.89 C82.90 Z71.89 Z92.21 Office Visit 02/25/2017 2:49p [facility] Mushtaq Clemente, 08645 R50.81 Assoc,pc Hospitalists MTalib D64.9 D70.9 D69.6 Office Visit 02/24/2017 2:49p [facility], 51267 R50.81 Assoc,pc Hospitalists MBrittaniDBrittani D64.9 D70.9 D69.6 Office Visit 02/23/2017 2:48p [facility] Mushtaq Clemente, 28488 R50.81 Assoc,pc Hospitalists MTalib D64.9 D70.9 D69.6 Office Visit 02/22/2017 2:47p [facility] Margot Spaulding, 39231 R50.81 Hospitalists M.DBrittani D64.9 D70.9 D69.6 Office Visit 02/21/2017 2:47p [facility] Margot Spaulding, 52530 R50.81 Hospitalists M.DBrittani D70.9 D64.9 D69.6 Office Visit 02/20/2017 2:46p [facility] Margot Spaulding, 70230 R50.81 Hospitalists M.DBrittani D70.9 D64.9 D69.6 Office Visit 02/19/2017 2:45p [facility] Amber Jones, 34710 R50.81 Assoc,pc Hospitalists TAPPER HELPER D70.9 D64.9 D69.6 Office Visit 02/16/2017 3:52p [facility] Meenu Mendiola, 86094 I48.0 Hospitalists MTalib R74.8 D72.829 Office Visit 02/05/2017 2:00p [facility] Brendan Hernandez M.D. 77965 I48.0 C82.98 D61.810 J90 Office Visit 01/11/2017 3:44p [facility] Meenu Mendiola, 29113 I48.91 Assoc,pc Hospitalists Renata C82.98 D61.810 D69.6 Office Visit 01/10/2017 4:26p [facility] Brendan Hernandez M.D. 56019 I48.0 C82.98 J90 I30.9 D70.9 D69.6 Office Visit 01/10/2017 3:43p [facility] Meenu Maury, 62166 I48.91 Assoc,pc Hospitalists Renata C82.98 D61.810 D69.6 Office Visit 01/09/2017 3:43p [facility] [address] I48.91 Hospitalists C82.98 D69.6 D61.810 Office Visit 01/08/2017 3:42p [facility] [address] I48.91 Hospitalists C82.98 D61.810 J90 Office Visit 01/07/2017 3:42p [facility] [address] I48.91 Hospitalists D61.810 C82.98 J90 Office Visit 01/06/2017 3:41p [facility] Charlotte Adler, 73024 C82.98 Hospitalists D.O. D64.81 D69.6 I48.91 Office Visit 11/08/2016 1:55p [facility] Mushtaq Clemente, 99609 R11.2 Hospitalists Renata C82.90 D61.818 Office Visit 11/07/2016 1:55p [facility] Sly Benton M.D. 73525 R11.2 Hospitalists C82.90 D61.818 Office Visit 10/19/2016 8:11a [facility] Riky Renee, 20578 C82.93 Hospitalists Renata R18.0 R55 N13.30 Office Visit 10/19/2016 10:25a [facility] [place] [address] G60.9 Office Visit 10/18/2016 10:24a [facility] [place] [address] G60.9 R55 R26.89 Office Visit 10/18/2016 8:10a [facility], [place], 16158 C82.93 Hospitalists M.D. R55 N13.30 R18.0 Office Visit 10/17/2016 10:24a [facility] [place] [address] R26.89 R42 H53.8 Office Visit 10/17/2016 8:09a [facility], [place], 78118 C82.93 Hospitalists M.D. R18.0 N13.30 R55 Office Visit 09/27/2016 10:40a [facility] Jud Holland, 66939 R19.09 - Sarah Yanez N13.39 Office Visit 09/25/2016 1:00p [facility] Jud Holland M.D. 73939 R14.0 - Sarah F43.0 R19.09 N13.30 R18.8 Office Visit 05/28/2016 7:30a [facility] Jud Holland, 30378 Z00.00 - Sarah Yanez I10 M85.89 R05 R73.01 N39.3 Z12.39 L57.0 Office Visit 04/26/2016 1:20p [facility] Jud Holland M.D. 26536 N39.0 - Sarah R01.1 R73.01 Office Visit 03/01/2016 11:40a [facility] Bernice Kerr, N.PBrittani 48476 R35.0 - Christa N39.0 Office Visit 02/21/2016 4:00p [facility] - Glenn Charlton, 45879 R21 Sarah Yanez R73.01 Z23 Office Visit 12/06/2015 8:30a [facility] Isaac Hammonds, 04016 A69.20 Infectious Diseases Renata G47.01 Office Visit 12/05/2015 10:20a [facility] Glenn Charlton, 11017 A69.20 - Sarah Yanez Z13.220 Z13.1 Office Visit 11/29/2015 10:00a [facility] Glenn [place], 93835 R21 - [place] M.D. Office Visit 11/03/2015 4:20p [facility] Clayton Gonzalez, YOSVANY 88481 L03.114 - [place] Office Visit 11/05/2011 11:20a [facility] Bernice Kerr, N.P. 97402 719.47 - [place] V04.81 Office Visit 01/26/2011 1:20p DO Not Use [facility] Bernice Kerr, 01820 729.4 N.P. Office Visit 02/28/2010 11:30a DO Not Use [facility] Katty Alegria M.D., 23823 272.0 FACP 790.21 733.90 Office Visit 02/08/2010 9:30a DO Not Use [employer] Kattynghia Alegria, 28044 724.2 M.D., FACP 733.90 272.0 401.1 v04.81 Office Visit 05/12/2009 9:45a DO Not Use [employer] Katty Airam, 66528 272.4 M.D., FACP 719.45 Office Visit 04/14/2009 9:00a DO Not Use [employer] Katty Airam, 09669 272.4 M.D., FACP 401.1 Office Visit 03/14/2009 10:45a DO Not Use [employer] Kattynghia Alegria, 41035 785.1 M.D., FACP 272.4 300.00 311 V04.81 Office Visit 09/22/2008 11:45a DO Not Use [employer] [facility] Katty Airam, 62322 785.0 M.D., FACP 785.1 719.47 Office Visit 11/20/2007 1:45p DO Not Use [employer] [facility] Katty Airam, 00448 272.4 M.D., FACP Office Visit 07/22/2007 11:15a DO Not Use [employer] [facility] Katty Airam, 19845 V72.31 M.D., FACP 272.0 401.1 Office Visit 08/01/2006 1:30p DO Not Use [employer] [facility] Katty Airam, 42872 462 M.D., FACP Office Visit 05/21/2006 12:00p DO Not Use [employer] [facility] Katty Airam, 05794 372.30 M.D., FACP 465.9 Office Visit 04/09/2006 2:15p DO Not Use [employer] [facility] Katty Airam, 36498 289.3 M.D., FACP Office Visit 02/26/2006 2:30p DO Not Use [employer] [facility] Katty Airam, 26716 401.1 M.D., FACP V04.81 Office Visit 12/11/2005 9:45a DO Not Use [employer] [facility] Katty Airam, 89638 272.0 M.D., FACP 300.00 Plan of Care Future Appointment(s):12/12/2017 7:40 am - Natalie Packer MD at [facility] Gdlzkmpcfjm09/02/2018 - Brendan Hernandez M.D.E83.42 NarglcrxgxahvqD80.6 ZvdhjnengcuZ01.00 Pure hypercholesterolemia, qpjuywwjgkmR73.0 Paroxysmal atrial fibrillationFollow up:ov 10 m
[2018-01-04 14:47] VITALS: BP 110/71
--- NOTE | 2018-01-04 15:31 | UC ---
Complaint Female HPI - HPI Summary HPI Summary: 77yo patient with history of Afib and follicular lymphoma treated with ARCH[facility] who states has been having burning urination for the past week but was traveling and it worsened with dehydration. She denies fever, chills, flank pain , nausea or vomiting. She is allergic to sulfas and PCN. Yesterday urine culture shows E. coli, sensitivity pending. 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 ?: No Onset/Duration: Sudden Onset, Lasting Days Timing: Intermittent Severity Initially: Moderate Severity Currently: Moderate Pain Intensity: 3 Character: Burning Aggravating Factor(s): Urination Associated Signs And Symptoms: Positive: Negative - Risk Factors Ectopic Risk Factor: Negative Ovarian Torsion Risk Factor: Negative - Allergies/Home Medications Allergies/Adverse Reactions: Allergies Allergy/AdvReac Type Severity Reaction Status Date / Time amoxicillin Allergy Difficulty Verified 01/04/18 14:50 Swallowing diphenhydramine Allergy Agitation Verified 01/04/18 14:50 [From Benadryl] iohexol [From Omnipaque] Allergy Rash Verified 01/04/18 14:50 latex Allergy Rash Verified 01/04/18 14:50 Sulfa (Sulfonamide Allergy Unknown Verified 01/04/18 14:50 Antibiotics) Reaction Details "some chemo drugs" Allergy Unknown Uncoded 01/04/18 14:50 Reaction Details PMH/Surg Hx/FS Hx/Imm Hx - Additional Past Medical History Additional PMH: follicular lymphoma treated with ARCHOP Cardiovascular History: Atrial Fibrillation - Surgical History Surgical History: Yes Surgery Procedure, Year, and Place: appy as "a teenager" - Family History Known Family History: Negative: Cardiac Disease - denies family hx of, Diabetes - Social History Alcohol Use: Rare Substance Use Type: Marijuana Substance Use Comment - Amount & Last Used: medical marijuana Smoking Status (MU): Never Smoked Tobacco - Immunization History Most Recent Influenza Vaccination: 2016 Most Recent Pneumonia Vaccination: up to date Review of Systems Constitutional: Fatigue Genitourinary: Dysuria, Frequency All Other Systems Reviewed And Are Negative: Yes Physical Exam Triage Information Reviewed: Yes Appearance: Well-Appearing, No Pain Distress, Well-Nourished Vital Signs: Initial Vital Signs Temp 98.2 F 01/04/18 14:39 Pulse 87 01/04/18 14:39 Resp 16 01/04/18 14:39 BP 110/71 01/04/18 14:39 Pulse Ox 99 01/04/18 14:39 Vital Signs Reviewed: Yes Eyes: Positive: Conjunctiva Clear ENT: Positive: Hearing grossly normal, Pharynx normal Neck: Positive: Supple, Nontender, No Lymphadenopathy Respiratory: Positive: Chest non-tender, Lungs clear, Normal breath sounds, No respiratory distress Cardiovascular: Positive: RRR, No Murmur, Pulses Normal, Brisk Capillary Refill Abdomen Description: Positive: Nontender, No Organomegaly, Soft Bowel Sounds: Positive: Present Musculoskeletal Exam: Normal Complaint Female Dx - Course Course Of Treatment: patient with UA and urine culture positive for UTI, consistent wth HPI, start macrobid as prescribed, fluids, f/u with PCP in a week. - Differential Dx/Diagnosis Provider Diagnoses: UTI Discharge - Sign-Out/Discharge Documenting (check all that apply): Patient Departure All imaging exams completed and their final reports reviewed: No Studies - Discharge Plan Condition: Stable Disposition: HOME Prescriptions: Nitrofurantoin Monohyd/M-Cryst [Macrobid 100 mg Capsule] 100 mg PO BID 7 Days # 14 cap Patient Education Materials: Urinary Tract Infection in Women (ED), Nitrofurantoin Macrocrystals (By mouth) Referrals: Jud Holland MD [Primary Care Provider] - - Billing Disposition and Condition Condition: STABLE Disposition: Home
== END 2018-01-04 15:32 | disposition home or self-care (01) ==
LOC: UCEAST 13:33
DX: N39.0 Urinary tract infection, site not specified (principal); Z88.0 Allergy status to penicillin; Z88.8 Allergy status to other drugs, medicaments and biological substances; Z88.2 Allergy status to sulfonamides; Z91.041 Radiographic dye allergy status; Z91.040 Latex allergy status
CPT/HCPCS: 99212; G0463